=== PATIENT | female | born 1990 | race Caucasian/White ===

== ENCOUNTER 2023-09-23 18:03 | Observation (INO) | payer SELFPAY ==
[2023-09-23] VITALS (11 sets, daily range): BP systolic 152–210; BP diastolic 86–119; BMI 38.0; BMI 36.7
[2023-09-23 12:11] LABS: % Basophils 0.5 % (0-2); % Immature Granulocytes 0.3 % (0-0.5); % Lymphocytes 7.1 % (20.5-51.1); % Monocytes 2.3 % (1.7-9.3); % Neutrophils 89.8 % (42.2-75.2); Absolute Basophils 0.1 10^3/uL (0-0.2); Absolute Lymphocytes 0.9 10^3/uL (1.2-3.4); Absolute Monocytes 0.3 10^3/uL (0.1-0.6); Hematocrit 41.7 % (37.0-47.0); Hemoglobin 14.7 g/dL (12.0-16.0); Mean Corp Hgb Conc. 35.3 g/dL (33.0-37.0); Mean Corpuscular Hgb 30.8 pg (27.0-31.0); Mean Corpuscular Volume 87.4 fL (81.0-99.0); Mean Platelet Volume 10.6 fL (7.4-10.4); Nucleated Red Blood Cells % 0 %; Platelet Count 261 10^3/uL (130-400); Red Blood Cell Count 4.77 10^6/uL (4.20-5.40); Red Cell Dist. Width 12.7 % (11.5-14.5); White Blood Cell Count 13.3 10^3/uL (4.8-10.8)
[2023-09-23] MEDS: NSS 1000 IV ×2 (12:19→12:42)
[2023-09-23] MEDS: ZOFRAN 4 MG IV ×2 (12:19→22:21)
[2023-09-23 12:21] LABS: HCG, Serum Qualitative Screen Negative
--- NOTE | 2023-09-23 12:24 | EDRN ---
the pt was received from waiting room into ER Bed #11, the pt is vomiting and hyperventilating, this RN notified provider Rajani DIAZ, the pt is currently in sinus del in the 40-50's, PIV placed, Zofran and IVF Bolus hung and running, the pt
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
all over the pts shirt, the pt was compliant with putting gown on and was able to get into the gown herself, provider at the pts bedside speaking to the pt and assessing the pt, the pt stated to this RN and provider, 'I smoked week this morning,
this is a recurrent problem', VS WNL, will continue to monitor the pt closely
[2023-09-23 12:26] LABS: ALT (SGPT) 34 U/L (0-35); AST (SGOT) 31 U/L (14-36); Alkaline Phosphatase 67 U/L (38-126); Blood Urea Nitrogen 17 mg/dl (7-17); Calcium 9.9 mg/dl (8.4-10.2); Carbon Dioxide 21 mmol/L (22-30); Chloride 106 mmol/L (98-107); Estimated Creatinine Clearance > 125 ml/min; Glucose 164 mg/dl (70-99); Lipase 149 U/L (23-300); Potassium 4.3 mmol/L (3.5-5.1); Sodium 137 mmol/L (135-145); Total Bilirubin 1.2 mg/dl (0.2-1.3); Total Protein 8.2 g/dl (6.3-8.2); eGFR > 60.00
--- NOTE | 2023-09-23 12:36 | EDRN ---
unable to obtain EKG currently due to the pt not being able to sit still due to vomiting, provider Rajani DIAZ notified along with Dr. Drummond
[2023-09-23] MEDS: HALDOL 1 MG IV ×2 (12:38→16:22)
--- NOTE | 2023-09-23 12:44 | EDRN ---
Haldol administered, EKG will be performed, provider notified
--- NOTE | 2023-09-23 12:44 | ED.GENMED ---
History of Present Illness
<Sierra Morrow PA-C - Last Filed: 09/24/23 11:05>
General
Chief Complaint: Abdominal Symptoms
Source: patient
Exam Limitations: none
Time Seen by Provider: 09/23/23 12:01
Nursing documentation reviewed up to this point in time: agreed with
Travel History
Have you had any contact with someone who has COVID-19?: No
Do you have any symptoms of coronavirus? Fever > 100 degrees, chills, cough, shortness of breath, sore throat, loss of taste or smell, muscle aches, or headache?: No
History of Present Illness
History of Present Illness:
Patient is a 33-year-old female presenting to the emergency department with complaints of persistent nausea, vomiting for the past 3 days. She has a history of cyclical vomiting due to marijuana use. She smokes multiple times a day. She states
this episode feels exactly similar to prior episodes. She has had a few episodes of diarrhea and reports diffuse abdominal cramping.
She denies any fever, chills, urinary symptoms.
Patient states that she takes gabapentin and omeprazole daily.
Past History
<Sierra Morrow PA-C - Last Filed: 09/24/23 11:05>
Past History
ED Past Medical History: Psychiatric (Anxiety, marijuana dependence) and Other (Cannabis hyperemesis syndrome, obesity, migraines)
ED Past Surgical History: None
Social History
Tobacco: Smoker
Alcohol: Former
Drug: Marijuana
Personal: Single
Living: with family
Employment: Employed
Family History
Family History: Other
Phy Exam
<Sierra Morrow PA-C - Last Filed: 09/24/23 11:05>
Physical Exam
Physical Exam:
General: Appears uncomfortable, non-toxic; actively vomiting on initial evaluation
Vitals: Hypertensive, otherwise vital signs stable; afebrile
HEENT: Atraumatic, normocephalic; protecting airway, dry mucous membranes
Neck: appears supple, no meningeal signs
CV: Regular rate and rhythm, heart sounds normal no evidence of cyanosis
Resp: No evidence of respiratory distress
Abd: Soft, diffusely tender, no rebound or guarding, non-distended
Extremities: No deformities, no evidence of cyanosis or
Neuro: alert and oriented; grossly intact
Psych: Normal affect
Skin: Intact, no rashes
Course
<Sierra Morrow PA-C - Last Filed: 09/24/23 11:05>
Orders/Labs/Results
Orders:
Orders
09/23/23 Breakfast
Clear Liquid
At Your Request: Full Participation
Comment: advance as tolerted, pagtient may hav e crackers
09/23/23 12:00
Test Result ONCE
09/23/23 12:01
Complete Blood Count/With Diff Urgent
Comprehensive Metabolic Panel Urgent
HCG, Serum Qualitative Screen Urgent
Lipase Urgent
09/23/23 12:06
Ondansetron Injectable [Zofran] 4 mg .ROUTE .STK-MED ONE
09/23/23 12:13
0.9% Sodium Chloride 1000 ml [Nss] 1,000 ml IV BOLUS
Ondansetron Injectable [Zofran] 4 mg IV NOW STA
09/23/23 12:14
Electrocardiogram (*1) Urgent
Reason for Study: QTc Monitoring
EKG- Treatment ONCE
09/23/23 12:18
Add On- LAB Urgent
Tests Added?: urine drug screen
09/23/23 12:35
Haloperidol Lactate [Haldol] 1 mg IV NOW STA
09/23/23 12:42
0.9% Sodium Chloride 1000 ml [Nss] 1,000 ml IV BOLUS
09/23/23 13:46
Diphenhydramine [Benadryl] 25 mg IV NOW STA
Prochlorperazine [Compazine] 10 mg IV NOW STA
09/23/23 14:10
Capsaicin [Zostrix-Hp 0.075% Cream] See Dose Instructions TOPICAL NOW STA
09/23/23 16:14
Haloperidol Lactate [Haldol] 1 mg IV NOW STA
09/23/23 16:23
Electrocardiogram (*1) Urgent
Reason for Study: QTc Monitoring
EKG- Treatment ONCE
09/23/23 17:44
Admit/Transfer Patient As Directed
Co-Sign Provider:
Level of Care: Observation services
Assign to:: Medical/Surgical
Physician / Group: karson coats
Diagnosis: hyperemesis syndrome
09/23/23 17:45
Code Status As Directed
Resuscitation Status: Full Code
09/23/23 17:56
US Abdomen Complete/Upper Urgent
Comment:
Reason For Exam: abdominal pain
09/23/23 21:25
Acetaminophen [Tylenol] 650 mg PO Q4HPRN PRN
Enoxaparin Sodium [Lovenox] 40 mg SC QPM
HYDROmorphone [Dilaudid] 0.5 mg IV Q4HPRN PRN
HydrALAZINE [Apresoline] 5 mg IV Q6HPRN PRN
KCl 20 Meq/D5.45%Sodchl 1000ML [D5/0.45%NSS with KCL 20 MEQ] 20 meq in 1,000 ml IV 80 mls/hr
Ondansetron Injectable [Zofran] 4 mg IV Q6HPRN PRN
Pantoprazole [Protonix IV] 40 mg IV DAILY
09/23/23 21:25
Activity As Directed
Activity Level: As Tolerated
Vital Signs As Directed
Frequency: Per unit guidelines
DX Deep Vein Thrombosis Video Routine
09/23/23 22:00
Urinalysis Reflex To Culture Routine
Date Specimen was Collected: 09/23/23
Time Specimen was Collected: 17:50
Gabapentin [Neurontin] 600 mg PO TID
09/24/23 07:42
Basic Metabolic Panel IN AM
Complete Blood Count/No Diff IN AM
Abnormal Lab Results
09/23/23
12:01
WBC 13.3 H 10^3/uL
(4.8-10.8)
MPV 10.6 H fL
(7.4-10.4)
Absolute Neuts (auto) 12.0 H 10^3/uL
(1.4-6.5)
Absolute Lymphs (auto) 0.9 L 10^3/uL
(1.2-3.4)
Neutrophils % 89.8 H %
(42.2-75.2)
Lymphocytes % 7.1 L %
(20.5-51.1)
Carbon Dioxide 21 L mmol/L
(22-30)
Glucose 164 H mg/dl
(70-99)
09/23/23 12:01
09/23/23 12:01
Vital Signs
Temp: 98.4 F
Initial and Last Documented VS:
Initial Vital Signs
Pulse Resp BP Pulse Ox
73 20 181/105 98
09/23/23 11:20 09/23/23 11:20 09/23/23 11:20 09/23/23 11:20
Last Documented Vital Signs
Temp Pulse Resp BP Pulse Ox
97.4 F 53 18 133/73 97
09/24/23 07:30 09/24/23 07:30 09/24/23 07:30 09/24/23 07:30 09/24/23 08:50
<Lester Drummond, DO - Last Filed: 09/23/23 13:53>
Orders/Labs/Results
Orders:
Orders
09/23/23 Breakfast
Clear Liquid
At Your Request: Full Participation
Comment: advance as tolerted, pagtient may hav e crackers
09/23/23 12:00
Test Result ONCE
09/23/23 12:01
Complete Blood Count/With Diff Urgent
Comprehensive Metabolic Panel Urgent
HCG, Serum Qualitative Screen Urgent
Lipase Urgent
09/23/23 12:06
Ondansetron Injectable [Zofran] 4 mg .ROUTE .STK-MED ONE
09/23/23 12:13
0.9% Sodium Chloride 1000 ml [Nss] 1,000 ml IV BOLUS
Ondansetron Injectable [Zofran] 4 mg IV NOW STA
09/23/23 12:14
Electrocardiogram (*1) Urgent
Reason for Study: QTc Monitoring
EKG- Treatment ONCE
09/23/23 12:18
Add On- LAB Urgent
Tests Added?: urine drug screen
09/23/23 12:35
Haloperidol Lactate [Haldol] 1 mg IV NOW STA
09/23/23 12:42
0.9% Sodium Chloride 1000 ml [Nss] 1,000 ml IV BOLUS
09/23/23 13:46
Diphenhydramine [Benadryl] 25 mg IV NOW STA
Prochlorperazine [Compazine] 10 mg IV NOW STA
09/23/23 14:10
Capsaicin [Zostrix-Hp 0.075% Cream] See Dose Instructions TOPICAL NOW STA
09/23/23 16:14
Haloperidol Lactate [Haldol] 1 mg IV NOW STA
09/23/23 16:23
Electrocardiogram (*1) Urgent
Reason for Study: QTc Monitoring
EKG- Treatment ONCE
09/23/23 17:44
Admit/Transfer Patient As Directed
Co-Sign Provider:
Level of Care: Observation services
Assign to:: Medical/Surgical
Physician / Group: karson coats
Diagnosis: hyperemesis syndrome
09/23/23 17:45
Code Status As Directed
Resuscitation Status: Full Code
09/23/23 17:56
US Abdomen Complete/Upper Urgent
Comment:
Reason For Exam: abdominal pain
09/23/23 21:25
Acetaminophen [Tylenol] 650 mg PO Q4HPRN PRN
Enoxaparin Sodium [Lovenox] 40 mg SC QPM
HYDROmorphone [Dilaudid] 0.5 mg IV Q4HPRN PRN
HydrALAZINE [Apresoline] 5 mg IV Q6HPRN PRN
KCl 20 Meq/D5.45%Sodchl 1000ML [D5/0.45%NSS with KCL 20 MEQ] 20 meq in 1,000 ml IV 80 mls/hr
Ondansetron Injectable [Zofran] 4 mg IV Q6HPRN PRN
Pantoprazole [Protonix IV] 40 mg IV DAILY
09/23/23 21:25
Activity As Directed
Activity Level: As Tolerated
Vital Signs As Directed
Frequency: Per unit guidelines
DX Deep Vein Thrombosis Video Routine
09/23/23 22:00
Urinalysis Reflex To Culture Routine
Date Specimen was Collected: 09/23/23
Time Specimen was Collected: 17:50
Gabapentin [Neurontin] 600 mg PO TID
09/24/23 07:42
Basic Metabolic Panel IN AM
Complete Blood Count/No Diff IN AM
Abnormal Lab Results
09/23/23
12:01
WBC 13.3 H 10^3/uL
(4.8-10.8)
MPV 10.6 H fL
(7.4-10.4)
Absolute Neuts (auto) 12.0 H 10^3/uL
(1.4-6.5)
Absolute Lymphs (auto) 0.9 L 10^3/uL
(1.2-3.4)
Neutrophils % 89.8 H %
(42.2-75.2)
Lymphocytes % 7.1 L %
(20.5-51.1)
Carbon Dioxide 21 L mmol/L
(22-30)
Glucose 164 H mg/dl
(70-99)
09/23/23 12:01
09/23/23 12:01
Vital Signs
Initial and Last Documented VS:
Initial Vital Signs
Pulse Resp BP Pulse Ox
73 20 181/105 98
09/23/23 11:20 09/23/23 11:20 09/23/23 11:20 09/23/23 11:20
Last Documented Vital Signs
Temp Pulse Resp BP Pulse Ox
97.4 F 53 18 133/73 97
09/24/23 07:30 09/24/23 07:30 09/24/23 07:30 09/24/23 07:30 09/24/23 08:50
<Sierra Morrow PA-C - Last Filed: 09/24/23 11:05>
MDM/Problems Addressed
Differential Diagnosis Includes:
Cannabis hyperemesis syndrome, viral illness, gastritis, pancreatitis
MDM/Problems Addressed:
Patient is a 33 year female with history of cannabis hyperemesis syndrome presenting with persistent nausea, vomiting, crampy abdominal pain for the past three days very similar to prior episodes of cannabis hyperemesis syndrome. No fever, chest
pain, shortness of breath. She is hypertensive, otherwise vital signs stable. Appears very dehydrated. Abdomen is soft and diffusely tender without rebound or guarding - not surgical abdomen. Reviewed prior notes and will treat patient with agents
that she has responded well to in past. Starting IVF, 4 zofran, 1mg haldol. Will check basic labs, EKG for QT monitoring.
CBC shows mild leukocytosis to 13.3-likely stress reaction from repetitive vomiting. Otherwise no clinically significant abnormalities. CMP without any clinically significant abnormalities. QT normal on EKG.
Update: Patient with very minimal improvement. Will try Compazine/benadryl.
Update: Will trial patient on PO liquid intake. Patient continues to vomit despite multiple round of antiemetics. Will give 1mg haldol and admit to hospitalist for further management.
Discussed with hospitalist.
Chronic conditions affecting care:
Cannabis hyperemesis syndrome
Acute Exacerbation and/or Progression of Chronic Illness:
Cannabis hyperemesis syndrome
<Sierra Morrow PA-C - Last Filed: 09/24/23 11:05>
*Pulse Oximetry
Patient hypoxic: no
*EKG
Interpreted by ED Provider?: Yes
EKG Intrepretation Date: 09/23/23
Interpretation: abnormal
Comparison EKG: no changes
Heart Rate: 58
Rate: bradycardiac
Rhythm: sinus
[place]: normal axis
Interval: normal QT interval
Ischemia: no ischemia
*Manager Quality Compliance Interpretation
Rate: normal
Interpretation: normal
Heart Rate: 72
Rhythm: sinus
*Critical Care Note
Total Time (30-74mins, 75-104mins- exclusive of procedures): Not Applicable
Data Reviewed
Review of Other/Old Records Reveals: Labs and Records
Source: patient and previous hospital records
Further Testing Considered But Not Given:
Consider CT abdomen�symptoms consistent with prior episodes of cannabis hyperemesis syndrome; afebrile, no leukocytosis, abdomen without any focal tenderness
<Sierra Morrow PA-C - Last Filed: 09/24/23 11:05>
Patient Management
Discussion with other providers: Hospitalist
Escalation/DeEscalation of care consider admission/obs:
Patient given multiple rounds of antiemetic medication with little improvement. Repetitive vomiting while in emergency department. Will admit for further management of hyperemesis/intractable nausea.
ED Attending Note
<Sierra Morrow PA-C - Last Filed: 09/24/23 11:05>
-
Portions of this chart may have been created with voice recognition software.� Occasional wrong word or��sound alike� substitutions may have occurred due to the inherent limitations of voice recognition software.
<Lester Drummond DO - Last Filed: 09/23/23 13:53>
ED Attending Note
Patient seen and examined by attending physician: Yes
I performed a history and physical exam of patient and discussed management with resident, I reviewed resident's note and agree with documented findings and plan of care.: Yes
ED Attending Note:
I have reviewed and agree with history and treatment plan by Sierra Morrow. My exam reveals 31-year-old female appears nauseous and uncomfortable. Suspect cannabis hyperemesis. Nausea and vomiting improved after Haldol. Will give hydration,
capsaicin, Compazine and Benadryl.
Discharge Plan
Departure
Patient Disposition: Admit
Date of Disposition: 09/23/23
Time of Disposition: 17:21
Presentation/result/management discussed w/ accepting MD/DO: Hospitalist
Discharge Problem:
Hyperemesis, Intractable nausea and vomiting
Interventions
Interventions:
*Risk Screen - Suicide Last Done: 09/23/23 11:20
*General Assessment Last Done: 09/23/23 11:20
*Neglect/Abuse Screening Last Done: 09/23/23 11:20
ED- Fall Risk Assessment Last Done: 09/23/23 12:13
*ED COVID-19 Vaccine History Last Done: 09/23/23 12:13
*Nursing Disposition Last Done: 09/23/23 21:20
NU-Vxhkkz-Jncnrelvvs Assessment Last Done: 09/23/23 12:13
Discharge Date and Time
Discharge Date/Time: 09/23/23 21:21
--- NOTE | 2023-09-23 12:49 | EDRN ---
Dr. Drummond currently at the pts bedside
--- NOTE | 2023-09-23 12:56 | EDRN ---
the pt is not vomiting, the pt is resting in stretcher in the lowest position, side rails up x2, call march within reach, HOB elevated, no s/s of distress, VS WNL, will continue to monitor the pt closely
--- NOTE | 2023-09-23 13:16 | EDRN ---
provider notified of elevated blood pressure
[2023-09-23] MEDS: BENADRYL 25 MG IV (14:09)
[2023-09-23] MEDS: COMPAZINE 10 MG IV (14:09)
[2023-09-23] MEDS: BENADRYL IV (14:12)
--- NOTE | 2023-09-23 14:45 | EDRN ---
the pt is sleeping in stretcher in the lowest position, side rails up x2, call march within reach, HOB elevated, no s/s of distress, no c/o N/V, NSR in the 70's, blood pressure currently still elevated and this RN notified provider, will continue to
monitor the pt closely
--- NOTE | 2023-09-23 16:51 | EDRN ---
the pt refused to speak to registration twice, Prabha from registration went into the pts room and registered the pts, the pt refuses to speak to staff, the pt has not had c/o N/V/D, VS WNL, the pt keeps pulling off her monitor
--- NOTE | 2023-09-23 17:12 | EDRN ---
the pt has been sipping water per provider Rajani DIAZ request, the pt has no c/o N/V
--- NOTE | 2023-09-23 17:17 | EDRN ---
Dr. Hawk and Rajani Abel PA currently at the pts bedside speaking with the pt
--- NOTE | 2023-09-23 17:19 | EDRN ---
the pt has started to vomit again, provider notified
--- NOTE | 2023-09-23 17:28 | HPS.HSE ---
Addendum entered and electronically signed by Kev Mc MD 09/23/23 18:50:
Persistent N/V for 3 days
Pt seen independently and agree with ST[facility] ROLLER note
Lungs clear
CV reg
Abd soft, diffusely tender
Imp:cyclic vomiting syndrome
P:IVF
GB US
Original Note:
Family Physician
-
Family Physician: Hector Ladd
Chief Complaint
-
n/v/d
History of Present Illness
33 year old with PMH for anxiety presented to us with persistent nausea, vomiting for the past 3 days.� denied an blood in the diarrhea and vomit. stated diffuse abdominal pain.stated chills. denied fever. denied runny nose, congestion, cough.
denied chest pain, sob. denied dysuria or hematuria. smokes MJ daily. she used MJ today morning.
administered multiple anti emetics with no relief in her symptoms.
Medical History
Past Medical History
Past Medical History: Reports Other
Additional Past Medical History:
anxiety
Past Surgical History: Reports None
Social History
Tobacco: Smoker (0.5 pack a day. 1MJ daily)
Alcohol: None
Drug: None
Family History
Family History: Not pertinent
Allergies / Home Medications
Allergies reflects when Allergies were last updated in [facility].
Home Medications with original date entered in [facility]
Allergy/Medication List:
Allergies
Allergy/AdvReac Type Severity Reaction Status Date / Time
No Known Allergies Allergy Verified 09/23/23 11:25
Home Medications
omeprazole 40 mg capsule,delayed release 40 mg PO DAILY Gastrointestinal issue 14 days #14 caps 07/20/22
gabapentin 600 mg tablet 600 mg PO TID Pain 12/05/22
escitalopram oxalate 10 mg tablet 10 mg PO DAILY Mental Health/Anxiety 12/13/22
Review of Systems
-
Constitutional: Reports No Symptoms
EENT: Reports No Symptoms
Respiratory: Reports No Symptoms
Cardiac: Reports No Symptoms
Abdomen/GI: Reports Abdominal Pain, Nausea, Vomiting and Diarrhea
: Reports No Symptoms
Musculoskeletal: Reports No Symptoms
Skin: Reports No Symptoms
Neurological: Reports No Symptoms
Endocrine: Reports No Symptoms
Hematologic/Lymphatic: Reports No Symptoms
Psych: Reports No Symptoms
Physical Exam
Vital Signs
Vital Signs
Temp Pulse Resp BP Pulse Ox
98.4 F 64 20 179/119 98
09/23/23 16:29 09/23/23 14:00 09/23/23 14:00 09/23/23 14:00 09/23/23 14:00
Physical Exam
General: Well Developed, Well Nourished and No Apparent Distress
HEENT: NormoCephalic, Moist mucous membranes and Atraumatic
Respiratory: Clear
Cardiac: S1/S2 and Regular Rhythm; No Murmur or Rub
GI: Soft, Non Distended, Normal Bowel Sounds and Tender; No Organomegaly
Rectal: Deferred by Provider
Musculoskeletal: No Clubbing, No Cyanosis and No Edema
Skin: No Rash
Neuro: AO x 3 and Nonfocal/grossly intact
Psych: Calm
Laboratory Results
-
09/23/23 12:01
09/23/23 12:01
Laboratory Results
Total Bilirubin 1.2 mg/dl (0.2-1.3) 09/23/23 12:01
AST 31 U/L (14-36) 09/23/23 12:
ALT 34 U/L (0-35) 09/23/23 12:01
Alkaline Phosphatase 67 U/L (38-126) 09/23/23 12:01
Lipase 149 U/L (23-300) 09/23/23 12:
Data Reviewed
-
Lab Data: Labs Reviewed by me
Impression/Plan
-
#hyperemesis/intractable nausea likely from cannabis use
-Zofran prn for n/v
-Dilaudid prn for pain
-obtain US
-clear liquid diet advance as tolerated
-fluids continued for hydration
#leukocytosis likely stress reaction
-wbc 13.3
-obtain UA
-afebrile
-ctm
#hypertension emergency
-BP elevated in ER
-hydralazine prn
#Anxiety/depression/panic disorder
#Obesity-BMI 38.0
#GERD-continue PPI IV
#chronic pain
-gabapentin continued
DVT prophylaxis-Lovenox
Full code
--- NOTE | 2023-09-23 17:36 | EDRN ---
hospitalist currently at the pts bedside, this RN placed the pt back on the monitor
--- NOTE | 2023-09-23 21:38 | PTCARENOTE ---
Addendum entered by Eloisa Trivedi RN 09/23/23 21:40:
Pt refusing to answer admissions questions at this time. Will attempt again.
Original Note:
Received pt from ED via stretcher. Pt ambulated to bed without assist. Drowsy, AAOx3. Vomited ~50 cc yellow bile. Oriented to floor, call march within reach.
[2023-09-23] MEDS: D5/0.45%NSS with KCL 20 MEQ 1000 IV (22:07)
[2023-09-23] MEDS: APRESOLINE 5 MG IV (22:08)
[2023-09-23] MEDS: PROTONIX IV 40 MG IV (22:09)
[2023-09-23] MEDS: NSS (PRESERVATIVE FREE) 10 ML IV (22:09)
[2023-09-24 02:30] LABS: Urine Albumin Negative (Neg - Trace); Urine Bilirubin Negative (Negative); Urine Character Clear (Clear); Urine Color Yellow; Urine Glucose Negative (Negative); Urine Ketone 3+ (Negative); Urine Leukocyte Negative (Negative); Urine Nitrite Negative (Negative); Urine Occult Blood Negative (Negative); Urine Specific Gravity 1.015 (<1.030); Urine Urobilinogen Negative (Neg - 1+); Urine pH 6.5 (5.0-9.0)
[2023-09-24] MEDS: ZOFRAN 4 MG IV (04:20)
[2023-09-24 07:30] VITALS: BP 133/73
[2023-09-24 08:20] LABS: Hematocrit 37.7 % (37.0-47.0); Hemoglobin 13.1 g/dL (12.0-16.0); Mean Corp Hgb Conc. 34.7 g/dL (33.0-37.0); Mean Corpuscular Volume 89.3 fL (81.0-99.0); Mean Platelet Volume 11.5 fL (7.4-10.4); Platelet Count 212 10^3/uL (130-400); Red Blood Cell Count 4.22 10^6/uL (4.20-5.40); Red Cell Dist. Width 12.8 % (11.5-14.5); White Blood Cell Count 12.4 10^3/uL (4.8-10.8)
[2023-09-24 08:41] LABS: Blood Urea Nitrogen 13 mg/dl (7-17); Calcium 9.1 mg/dl (8.4-10.2); Carbon Dioxide 22 mmol/L (22-30); Chloride 102 mmol/L (98-107); Estimated Creatinine Clearance > 125 ml/min; Glucose 128 mg/dl (70-99); Potassium 3.4 mmol/L (3.5-5.1); Sodium 132 mmol/L (135-145); eGFR > 60.00
[2023-09-24] MEDS: PROTONIX IV 40 MG IV (08:51)
[2023-09-24] MEDS: NSS (PRESERVATIVE FREE) 10 ML IV (08:52)
--- NOTE | 2023-09-24 10:02 | W.PN.HOSP.TC ---
Addendum entered and electronically signed by Kev Mc MD 09/24/23 15:49:
Haldol helped ~40% with nausea, pt requests alternative drug to use for hyperemesis.
Will add prn Ativan, but not to use both at same time (nursing told to separate dsoing by at least 1 hr
Original Note:
Today's Communication/Plan
-
dc Zofran and start prn Haldol
Assessment / Plan
Assessment / Plan
#hyperemesis/intractable nausea likely from cannabis use
-Zofran was ordered prn for n/v, pt told nurse not working. UptoDate recommends Haldol 0.05-0.1 mg/kg, will order
consider GI consult
-Dilaudid prn for pain
-obtain US
-clear liquid diet advance as tolerated, pt asking for crackers, will allow
-fluids continued for hydration
#leukocytosis likely stress reaction
-wbc 13.3-->12.4
-UA +Ketones, otherwise unremarkable
-afebrile
-ctm
#hypertension emergency
-BP elevated in ER
-hydralazine prn
BP most recently 133/73
#Anxiety/depression/panic disorder
#Obesity-BMI 38.0
#GERD-continue PPI IV
#chronic pain
-gabapentin continued
DVT prophylaxis-Lovenox
Full code
Anticipated Discharge: 24 - 48 hours
Subjective/Interval History
-
Date of Service: September 24, 2023
Still with severe nausea. Does not think Zofran works well
Objective Data
-
Labs:
Laboratory Results
09/24/23
07:42
WBC 12.4 H
Hgb 13.1
Hct 37.7
Plt Count 212
Sodium 132 L
Potassium 3.4 L
Chloride 102
Carbon Dioxide 22
BUN 13
Creatinine 0.6
Glucose 128 H
Calcium 9.1
Vital Signs:
Vital Signs
Temp Pulse Resp BP Pulse Ox
97.4 F 53 18 133/73 97
09/24/23 07:30 09/24/23 07:30 09/24/23 07:30 09/24/23 07:30 09/24/23 08:50
I&O
09/23/23 09/24/23 09/25/23
06:59 06:59 06:59
Intake Total 780 / 780
Balance 780 / 780
Review of Systems
-
History Source: Patient and Coordinated Provider
Constitutional: Denies Fever
EENT: Reports No Symptoms Reported
Respiratory: Reports No Symptoms
Cardiac: Reports No Symptoms
Abdomen/GI: Reports Nausea and Vomiting
Musculoskeletal: Reports No Symptoms
Physical Exam
-
General: Well Developed, Well Nourished and Appears in Distress
Respiratory: Clear to Auscultation; Negative Wheezes, Rales or Rhonchi
Cardiac: S1/S2
GI: Soft, Normal Bowel Sounds and Tender
Musculoskeletal: No Clubbing, No Cyanosis and No Edema
[2023-09-24] MEDS: HALDOL 1 MG IV ×2 (11:31→20:18)
[2023-09-24] MEDS: FLUSH (NSS) 1 FLUSH IV ×2 (11:32→15:55)
[2023-09-24] MEDS: D5/0.45%NSS with KCL 20 MEQ 1000 IV (13:25)
--- NOTE | 2023-09-24 14:46 | CM ---
Patient seen, patient very nauseous and heaving while trying to talk to CM. Patient reports she wants to leave, CM relayed message to nurse, reports Hospitalist will be up. CM reviewed OBS form with patient, refused to sign, placed in patients
chart. CM will continue to follow for disharge planning needs.
Plan; patient wants to leave hospital.
[2023-09-24 15:36] VITALS: BP 134/76
--- NOTE | 2023-09-24 15:44 | PTCARENOTE ---
Pt AAO x3, STEVENS; ambulatory in room/to BR; taking frequent showers to help with nausea. Pt anxious; requesting to 'leave'; Dr. Mc up to see pt. VSS. On room air- pulse ox 95%, no SOB noted. Abd large, soft, pt with frequent nausea/retching;
occ vomiting small to mod amts clear/frothy secretions. Pt asking for Haldol/Ativan for nausea control. Taking clear liquids; requesting diet to be advanced. Voiding in BR without difficulty. IVF's D5 1/2NSS with 20 meq KCL at 80 ml/hr infusing
via Rt AC site without sx of infiltration. Resting in bed at present. Will continue to monitor.
[2023-09-24] MEDS: ATIVAN 0.5 MG IV (15:54)
[2023-09-24] MEDS: NSS (PRESERVATIVE FREE) 0.25 ML IV (15:55)
[2023-09-24 23:58] VITALS: BP 138/70
[2023-09-25] MEDS: ATIVAN 0.5 MG IV ×2 (00:22→05:20)
[2023-09-25] MEDS: HALDOL 1 MG IV ×2 (02:50→08:25)
[2023-09-25 07:00] VITALS: BP 140/73
[2023-09-25] MEDS: D5/0.45%NSS with KCL 20 MEQ 1000 IV (07:16)
[2023-09-25 08:24] LABS: % Basophils 0.2 % (0-2); % Eosinophils 0.5 % (0-6); % Immature Granulocytes 0.4 % (0-0.5); % Lymphocytes 12.6 % (20.5-51.1); % Monocytes 6.4 % (1.7-9.3); % Neutrophils 79.9 % (42.2-75.2); Absolute Eosinophils 0.1 10^3/uL (0-0.7); Absolute Immature Granulocytes 0.1 10^3/uL (0-0.05); Absolute Lymphocytes 1.6 10^3/uL (1.2-3.4); Absolute Monocytes 0.8 10^3/uL (0.1-0.6); Absolute Neutrophils 10.2 10^3/uL (1.4-6.5); Hematocrit 38.2 % (37.0-47.0); Hemoglobin 13.5 g/dL (12.0-16.0); Mean Corp Hgb Conc. 35.3 g/dL (33.0-37.0); Mean Corpuscular Hgb 30.8 pg (27.0-31.0); Mean Platelet Volume 11.3 fL (7.4-10.4); Nucleated Red Blood Cells % 0 %; Platelet Count 235 10^3/uL (130-400); Red Blood Cell Count 4.39 10^6/uL (4.20-5.40); Red Cell Dist. Width 12.6 % (11.5-14.5); White Blood Cell Count 12.7 10^3/uL (4.8-10.8)
[2023-09-25] MEDS: PROTONIX IV 40 MG IV (08:25)
[2023-09-25] MEDS: NSS (PRESERVATIVE FREE) 10 ML IV (08:25)
[2023-09-25 08:45] LABS: Blood Urea Nitrogen 10 mg/dl (7-17); Calcium 9.1 mg/dl (8.4-10.2); Carbon Dioxide 24 mmol/L (22-30); Chloride 100 mmol/L (98-107); Estimated Creatinine Clearance > 125 ml/min; Glucose 117 mg/dl (70-99); Potassium 3.7 mmol/L (3.5-5.1); Sodium 130 mmol/L (135-145); eGFR > 60.00
--- NOTE | 2023-09-25 08:53 | W.PN.HOSP.TC ---
Today's Communication/Plan
-
Discharge planning in progress.
Assessment / Plan
Assessment / Plan
Physical exam:
General: Well Developed, Well Nourished and No Apparent Distress
HEENT: Normocephalic, Atraumatic and Moist Mucous Membranes
Respiratory: Clear to Auscultation; Negative Wheezes, Rales or Rhonchi
Cardiac: Regular Rhythm and S1/S2
GI: Soft, Nontender and Nondistended
Musculoskeletal: No Clubbing, No Cyanosis and No Edema
Neuro: Awake, Alert and Oriented
Psych: Calm
A/P:
#hyperemesis/intractable nausea likely from cannabis use
-Zofran was ordered prn for n/v, pt told nurse not working. [employer] recommends Haldol 0.05-0.1 mg/kg, will order
-Dilaudid prn for pain
-obtain US reviewed.
-On regular diet and tolerating
-fluids can be discontinued for hydration
#Hyponatremia
Mild
#leukocytosis likely stress reaction
-wbc 13.3-->12.7
-UA +Ketones, otherwise unremarkable
-afebrile
-ctm
#hypertension emergency
-BP elevated in ER
-hydralazine prn
BP most recently 133/73
#Anxiety/depression/panic disorder
#Obesity-BMI 38.0
#GERD-continue PPI IV
#chronic pain
-gabapentin continued
DVT prophylaxis-Lovenox
Full code
Anticipated Discharge: Today
Subjective/Interval History
-
Date of Service: September 25, 2023
Patient feels better but more importantly she wants to go home and she feels that she will continue to get better at home.
Objective Data
-
Labs:
Laboratory Results
09/25/23
07:26
WBC Pending
Hgb Pending
Hct Pending
Plt Count Pending
Sodium 130 L
Potassium 3.7
Chloride 100
Carbon Dioxide 24
BUN 10
Creatinine 0.6
Glucose 117 H
Calcium 9.1
Vital Signs:
Vital Signs
Temp Pulse Resp BP Pulse Ox
97.7 F 59 18 140/73 96
09/25/23 07:00 09/25/23 07:00 09/25/23 07:00 09/25/23 07:00 09/25/23 07:00
I&O
09/24/23 09/25/23 09/26/23
06:59 06:59 06:59
Intake Total 780 / 780 2460 / 2460
Balance 780 / 780 2460 / 2460
--- NOTE | 2023-09-25 10:05 | W.DCSUMMARY ---
Discharge Summary
Discharge Data
Date of Admission: 09/23/23
Date of Discharge: 09/25/23
-
Pending Results: No
Hospital Course
Patient 33-year-old female who presented to the hospital with chronic nausea and vomiting for several days. She was kept in observation and she was given IV fluids, antiemetics, pain medications. Ultrasound of the abdomen unremarkable. Patient
was able to tolerate advancing diet. She had mild reactive leukocytosis. Blood cultures no growth. She was advised abstinence of cannabis. She was symptomatically much improved and she is eager to go home today. She will be discharged in stable
condition today.
Discharge Plan
-
Patient Disposition: Home (Routine Discharge)
Discharge Diagnosis/Procedures: Cannabinoid hyperemesis syndrome. Reactive leukocytosis. Elevated blood pressure but no hypertension. Anxiety, unspecified
Diet: Regular
Activity: As tolerated
Driving Restrictions: As prior to admission
Blood Work: Please PCP to order CBC, BMP within 1 week
Referrals:
Hector Ladd MD [Family Provider] - in less than 1 week
Prescriptions:
Continued
omeprazole 40 mg capsule,delayed release(DR/EC)
40 mg PO DAILY 14 Days Qty: 14 0RF
gabapentin 600 mg tablet
600 mg PO TID
Discharge Orders:
Discharge Patient (As Directed); Ordered 09/25/23
Ordered By: Dani Bradford
Discharge Date and Time
Discharge Date/Time: 09/25/23 10:51
--- NOTE | 2023-09-25 11:49 | CM ---
CM reviewed chart. Patient discharged today, home no needs.
Plan; home no needs.
== END 2023-09-25 10:51 | disposition home or self-care (01) ==
LOC: 4 EAST ACU 18:03
PROVIDERS: Nurse Practitioner Gerontology; Registered Nurse; ADMITTING PHYSICIAN Internal Medicine; ATTENDING PHYSICIAN Hospitalist; EMERGENCY PHYSICIAN Emergency Medicine; FAMILY PHYSICIAN Family Medicine
DX: R11.15 Cyclical vomiting syndrome unrelated to migraine (principal); R10.9 Unspecified abdominal pain; R11.2 Nausea with vomiting, unspecified; F12.20 Cannabis dependence, uncomplicated; F32.A Depression, unspecified; F41.9 Anxiety disorder, unspecified; Z68.38 Body mass index [BMI] 38.0-38.9, adult; E66.9 Obesity, unspecified; F17.210 Nicotine dependence, cigarettes, uncomplicated; D72.829 Elevated white blood cell count, unspecified; F41.0 Panic disorder [episodic paroxysmal anxiety]; K21.9 Gastro-esophageal reflux disease without esophagitis; G89.29 Other chronic pain; K76.0 Fatty (change of) liver, not elsewhere classified; E87.1 Hypo-osmolality and hyponatremia; R03.0 Elevated blood-pressure reading, without diagnosis of hypertension
CPT/HCPCS: 76700; 80048; 80053; 81003; 83690; 84703; 85025; 85027; 93005; 96361; 96374; 96375; 99285; 99406; G0378

== ENCOUNTER 2023-11-28 21:46 | Inpatient (IN) | payer OTHER, SELFPAY ==
[2023-11-28 15:32] VITALS: BP 176/112
[2023-11-28 17:08] VITALS: BP 152/77
--- NOTE | 2023-11-28 17:09 | ED.GENMED ---
History of Present Illness
<Juli Verdin PA-C - Last Filed: 11/28/23 20:45>
General
Chief Complaint: Abdominal Symptoms
Source: patient
Exam Limitations: none
Time Seen by Provider: 11/28/23 16:50
Nursing documentation reviewed up to this point in time: agreed with
Travel History
Have you had any contact with someone who has COVID-19?: No
Do you have any symptoms of coronavirus? Fever > 100 degrees, chills, cough, shortness of breath, sore throat, loss of taste or smell, muscle aches, or headache?: No
History of Present Illness
History of Present Illness:
pt is a 33 y/o F with h/o canabis cyclic vomiting syndrome
here with vomiting 'for a few days'
last smoked this morning
says she knows she needs to stop but doesn't
she is continuously spitting saliva into a emesis bag and is not able to offer much history
pt was last hospitalized here in 09/2023 for same
she denies that she was hospitalized otherwise
unable to answer questions
Past History
<Juli Verdin PA-C - Last Filed: 11/28/23 20:45>
Past History
ED Past Medical History: Psychiatric (Anxiety, marijuana dependence) and Other (Cannabis hyperemesis syndrome, obesity, migraines)
ED Past Surgical History: None
Social History
Tobacco: Smoker
Alcohol: Former
Drug: Marijuana
Personal: Single
Living: with family
Employment: Employed
Family History
Family History: Other
Review of Systems
<Juli Verdin PA-C - Last Filed: 11/28/23 20:45>
Review of Systems
Allergies reviewed?: Yes
All Other Systems: Not applicable
Phy Exam
<Juli Verdin PA-C - Last Filed: 11/28/23 20:45>
Physical Exam
Physical Exam:
GENERAL: Alert , moaning, bringing up saliva, spitting
EYE: pupils equal and reactive
NECK: Supple
ENT: o/p clr, mmm.
CARDIAC: Regular rate and rhythm .
LUNGS: Clear breath sounds bilaterally, no acute respiratory distress, no wheezes/rales/rhonchi
ABDOMEN: Soft, obese without focal tenderness, no r/g, no cvat, normal bowel sounds
NEUROLOGICAL: Alert and oriented, no focal neuro deficits
SKIN: warm, pale, dipahroetic
MUSCULOSKELETAL: No edema, well perfused. neg dre's sign
PSYCH: Normal and appropriate interaction.
Course
<Juli Verdin PA-C - Last Filed: 11/28/23 20:45>
Orders/Labs/Results
Orders:
Orders
11/28/23 16:51
Electrocardiogram (*1) Urgent
Reason for Study: QTc Monitoring
EKG- Treatment ONCE
11/28/23 17:05
Haloperidol Lactate [Haldol] 1 mg IV NOW STA
Test Result ONCE
11/28/23 17:06
0.9% Sodium Chloride 1000 ml [Nss] 1,000 ml IV BOLUS
11/28/23 17:35
Complete Blood Count/With Diff Urgent
Comprehensive Metabolic Panel Urgent
HCG, Serum Qualitative Screen Urgent
Lipase Urgent
Magnesium Urgent
11/28/23 18:30
Diphenhydramine [Benadryl] 50 mg .ROUTE .STK-MED ONE
Metoclopramide [Reglan] 10 mg .ROUTE .STK-MED ONE
11/28/23 18:48
Metoclopramide [Reglan] 10 mg IV NOW STA
11/28/23 18:49
Diphenhydramine [Benadryl] 50 mg IV NOW STA
11/28/23 20:06
Pantoprazole [Protonix IV] 40 mg IV NOW STA
11/28/23 20:40
Ketorolac [Toradol] 30 mg IV NOW STA
Abnormal Lab Results
11/28/23
17:35
WBC 22.6 H 10^3/uL
(4.8-10.8)
MPV 11.5 H fL
(7.4-10.4)
Abs Immat Gran (auto) 0.1 H 10^3/uL
(0-0.05)
Absolute Neuts (auto) 20.8 H 10^3/uL
(1.4-6.5)
Absolute Lymphs (auto) 1.0 L 10^3/uL
(1.2-3.4)
Neutrophils % 92.2 H %
(42.2-75.2)
Lymphocytes % 4.5 L %
(20.5-51.1)
BUN 19 H mg/dl
(7-17)
Glucose 155 H mg/dl
(70-99)
Calcium 10.7 H mg/dl
(8.4-10.2)
Total Protein 8.4 H g/dl
(6.3-8.2)
Albumin 5.1 H g/dl
(3.5-5.0)
11/28/23 17:35
11/28/23 17:35
Vital Signs
Initial and Last Documented VS:
Initial Vital Signs
Temp Pulse Resp BP Pulse Ox
97.3 F 76 20 176/112 95
11/28/23 15:32 11/28/23 15:32 11/28/23 15:32 11/28/23 15:32 11/28/23 15:32
Last Documented Vital Signs
Temp Pulse Resp BP Pulse Ox
97.3 F 63 13 152/77 98
11/28/23 15:32 11/28/23 20:15 11/28/23 20:15 11/28/23 17:08 11/28/23 20:15
<Kavon Grace, DO - Last Filed: 11/28/23 20:38>
Orders/Labs/Results
Orders:
Orders
11/28/23 16:51
Electrocardiogram (*1) Urgent
Reason for Study: QTc Monitoring
EKG- Treatment ONCE
11/28/23 17:05
Haloperidol Lactate [Haldol] 1 mg IV NOW STA
Test Result ONCE
11/28/23 17:06
0.9% Sodium Chloride 1000 ml [Nss] 1,000 ml IV BOLUS
11/28/23 17:35
Complete Blood Count/With Diff Urgent
Comprehensive Metabolic Panel Urgent
HCG, Serum Qualitative Screen Urgent
Lipase Urgent
Magnesium Urgent
11/28/23 18:30
Diphenhydramine [Benadryl] 50 mg .ROUTE .STK-MED ONE
Metoclopramide [Reglan] 10 mg .ROUTE .STK-MED ONE
11/28/23 18:48
Metoclopramide [Reglan] 10 mg IV NOW STA
11/28/23 18:49
Diphenhydramine [Benadryl] 50 mg IV NOW STA
11/28/23 20:06
Pantoprazole [Protonix IV] 40 mg IV NOW STA
11/28/23 20:40
Ketorolac [Toradol] 30 mg IV NOW STA
Abnormal Lab Results
11/28/23
17:35
WBC 22.6 H 10^3/uL
(4.8-10.8)
MPV 11.5 H fL
(7.4-10.4)
Abs Immat Gran (auto) 0.1 H 10^3/uL
(0-0.05)
Absolute Neuts (auto) 20.8 H 10^3/uL
(1.4-6.5)
Absolute Lymphs (auto) 1.0 L 10^3/uL
(1.2-3.4)
Neutrophils % 92.2 H %
(42.2-75.2)
Lymphocytes % 4.5 L %
(20.5-51.1)
BUN 19 H mg/dl
(7-17)
Glucose 155 H mg/dl
(70-99)
Calcium 10.7 H mg/dl
(8.4-10.2)
Total Protein 8.4 H g/dl
(6.3-8.2)
Albumin 5.1 H g/dl
(3.5-5.0)
11/28/23 17:35
11/28/23 17:35
Vital Signs
Initial and Last Documented VS:
Initial Vital Signs
Temp Pulse Resp BP Pulse Ox
97.3 F 76 20 176/112 95
11/28/23 15:32 11/28/23 15:32 11/28/23 15:32 11/28/23 15:32 11/28/23 15:32
Last Documented Vital Signs
Temp Pulse Resp BP Pulse Ox
97.3 F 63 13 152/77 98
11/28/23 15:32 11/28/23 20:15 11/28/23 20:15 11/28/23 17:08 11/28/23 20:15
<Juli Verdin PA-C - Last Filed: 11/28/23 20:45>
MDM/Problems Addressed
Differential Diagnosis Includes:
hyperemesis, dehydration
MDM/Problems Addressed:
33 y/o F with h/o cannabis hyperemsis
has been here previosuly
n/v started 2 days ago
continues to smoke
having spasms of pain in her abdomen
bringing up mostly saliva
nontender abdomen
appreciate leukocytosis which is significant but probably acute phase reactant to vomiting, which sh ehas had perivously
given haldol then reglan/benadryl and still vomiting
requesting ativan which was not given,
she also is requesting paain medication, will give protonix and toradol
seen by ed attending, recommends admission given her intractable vomiting
<Juli Verdin PA-C - Last Filed: 11/28/23 20:45>
*Critical Care Note
Total Time (30-74mins, 75-104mins- exclusive of procedures): Not Applicable
ED Attending Note
<Juli eVrdin PA-C - Last Filed: 11/28/23 20:45>
-
Portions of this chart may have been created with voice recognition software.� Occasional wrong word or��sound alike� substitutions may have occurred due to the inherent limitations of voice recognition software.
<Kavon Grace DO - Last Filed: 11/28/23 20:38>
ED Attending Note
Patient seen and examined by attending physician: Yes
I performed the substantive portion of visit, reviewed & personally made and approve the management plan that is documented in note by myself or OMAIRA.: Yes
ED Attending Note:
I have seen and evaluated the patient with a [id number] encounter. I have spoken to the advance practicer provider and involved in the medical history, the physical exam, medical decision making.
Evaluation and management service: agree unless noted differently below.
Results interpretation: agree unless noted differently below.
Focused HPI: 33-year-old female presenting with nausea and vomiting. Patient has a known history of cannabis hyperemesis. She admits to smoking marijuana earlier today. She complains of generalized abdominal pain
Physical exam: Uncomfortable, dry mucous membranes, generalized abdominal tenderness without
Medical Decision Making: Patient unable to tolerate p.o. Will continue IV fluids. Given the elevated leukocytosis with inability to tolerate p.o., will admit. I did offer discharge but patient states she feels too uncomfortable going home. Given
the relatively benign abdomen with multiple negative imaging done in the past, will avoid further imaging
Discharge Plan
Departure
Patient Disposition: Admit
Date of Disposition: 11/28/23
Time of Disposition: 20:39
Admit to: Med/Surg
Presentation/result/management discussed w/ accepting MD/DO: Hospitalist
Condition: Fair
Covid-19: Not Applicable
Discharge Problem:
Cyclical vomiting, intractable
Prescriptions:
No Action
omeprazole 40 mg capsule,delayed release(DR/EC)
40 mg PO DAILY 14 Days Qty: 14 0RF
gabapentin 600 mg tablet
600 mg PO TID
Referrals:
UNKNOWN - PT DOES,NOT KNOW [Family Provider] -
Interventions
Interventions:
*Risk Screen - Suicide Last Done: 11/28/23 18:35
*General Assessment Last Done: 11/28/23 18:35
*Neglect/Abuse Screening Last Done: 11/28/23 18:35
ED- Fall Risk Assessment Last Done: 11/28/23 18:35
ZF-[id number]-Rhxedllgds Assessment Last Done: 11/28/23 18:35
Discharge Date and Time
Print Language: SLOVAK
[2023-11-28] MEDS: HALDOL 1 MG IV (17:32)
[2023-11-28] MEDS: NSS 1000 IV (17:33)
[2023-11-28 17:50] LABS: % Basophils 0.4 % (0-2); % Immature Granulocytes 0.4 % (0-0.5); % Lymphocytes 4.5 % (20.5-51.1); % Monocytes 2.5 % (1.7-9.3); % Neutrophils 92.2 % (42.2-75.2); Absolute Basophils 0.1 10^3/uL (0-0.2); Absolute Immature Granulocytes 0.1 10^3/uL (0-0.05); Absolute Monocytes 0.6 10^3/uL (0.1-0.6); Absolute Neutrophils 20.8 10^3/uL (1.4-6.5); Hematocrit 44.4 % (37.0-47.0); Hemoglobin 15.2 g/dL (12.0-16.0); Mean Corp Hgb Conc. 34.2 g/dL (33.0-37.0); Mean Corpuscular Hgb 30.8 pg (27.0-31.0); Mean Corpuscular Volume 90.1 fL (81.0-99.0); Mean Platelet Volume 11.5 fL (7.4-10.4); Nucleated Red Blood Cells % 0 %; Platelet Count 283 10^3/uL (130-400); Red Blood Cell Count 4.93 10^6/uL (4.20-5.40); White Blood Cell Count 22.6 10^3/uL (4.8-10.8)
[2023-11-28 17:55] LABS: HCG, Serum Qualitative Screen Negative
[2023-11-28 17:58] LABS: ALT (SGPT) 26 U/L (0-35); AST (SGOT) 23 U/L (14-36); Albumin 5.1 g/dl (3.5-5.0); Alkaline Phosphatase 78 U/L (38-126); Blood Urea Nitrogen 19 mg/dl (7-17); Calcium 10.7 mg/dl (8.4-10.2); Carbon Dioxide 22 mmol/L (22-30); Chloride 106 mmol/L (98-107); Glucose 155 mg/dl (70-99); Lipase 145 U/L (23-300); Magnesium 1.9 mg/dl (1.6-2.3); Potassium 4.3 mmol/L (3.5-5.1); Sodium 141 mmol/L (135-145); Total Bilirubin 0.7 mg/dl (0.2-1.3); Total Protein 8.4 g/dl (6.3-8.2); eGFR > 60.00
[2023-11-28] MEDS: REGLAN 10 MG IV (18:49)
[2023-11-28] MEDS: BENADRYL 50 MG IV (18:49)
[2023-11-28] MEDS: PROTONIX IV 40 MG IV (20:32)
[2023-11-28] MEDS: TORADOL 30 MG IV (20:51)
--- NOTE | 2023-11-28 21:32 | HPS.HSE ---
Addendum entered and electronically signed by Rolando Ybarra DO 11/28/23 22:32:
Patient seen and examined independently. Agree with findings and plan as set forth by Diana Sahu PA-C.
Patient is a 33y F with PMH significant for anxiety / depression who presents to ED complaining of N/V x 3 days. Patient admits to daily marijuana use. She has prior history / diagnosis of cannabinoid hyperemesis and has been counseled to avoid
marijuana. Patient has had continud episodes of retching here in the ED despite multiple interventions.
Ass;
Cannabinoid Hyperemesis Syndrome
Leukocytosis - Likely Stress Response
Anxiety / Depression
GERD
Chronic Pain Syndrome
Plan:
Admit for further evaluation and treatment.
Supportive care with IVFs, haloperidol, PRN BZDs, antiemetics, etc.
Avoid narcotic medications.
Follow for improvement in symptoms.
Would recommend outpatient follow-up with Psych for treatment of underlying anxiety disorder.
Again encouraged to stop smoking marijuana to prevent future episodes.
Original Note:
Family Physician
-
Family Physician: NOT KNOW UNKNOWN - PT DOES
Chief Complaint
-
Vomiting
History of Present Illness
This is a 33 year old female patient with a past medical history of anxiety, and cannabis hyperemesis syndrome who presents to the ED for vomiting x 3 days. She states she ran out of Zofran and denies any provocative factors. She also has associated
diffuse abdominal spasms x3 days that have worsened today. She was admitted for similar episode in 09/2023 and was advised to stop smoking marijuana, but she continue to smoke daily. She last smoked marijuana this morning. She also has associated
chills, but denies fever.
Medical History
Past Medical History
Past Medical History: Reports Other
Additional Past Medical History:
Anxiety/Depression/Panic Disorder
GERD
Chronic Pain
Past Surgical History: Reports None
Social History
Tobacco: Smoker
Alcohol: None
Drug: Marijuana
Family History
Family History: Not pertinent
Allergies / Home Medications
Allergies reflects when Allergies were last updated in [facility].
Home Medications with original date entered in [facility]
Allergy/Medication List:
Allergies
Allergy/AdvReac Type Severity Reaction Status Date / Time
No Known Allergies Allergy Verified 09/23/23 11:25
Home Medications
omeprazole 40 mg capsule,delayed release 40 mg PO DAILY Gastrointestinal issue 14 days #14 caps 07/20/22
gabapentin 600 mg tablet 600 mg PO TID Pain 12/05/22
escitalopram oxalate 10 mg tablet 10 mg PO DAILY Mental Health/Anxiety 12/13/22
Review of Systems
-
A 12 point ROS was completed and negative except as noted: Yes
Constitutional: Reports Chills; Denies Fever
Respiratory: Denies Cough or Trouble Breathing
Cardiac: Denies Chest Pain or Palpitations
Abdomen/GI: Reports Abdominal Pain, Nausea and Vomiting; Denies Diarrhea
Physical Exam
Vital Signs
Vital Signs
Temp Pulse Resp BP Pulse Ox
97.3 F 63 13 152/77 98
11/28/23 15:32 11/28/23 20:15 11/28/23 20:15 11/28/23 17:08 11/28/23 20:15
Physical Exam
General: Well Developed, Well Nourished and Other (Frequent Dry Heaves)
HEENT: NormoCephalic, Anicteric and Atraumatic
Respiratory: Clear and Non Labored Respirations
Cardiac: S1/S2 and Regular Rhythm
GI: Soft and Non Tender
Musculoskeletal: No Clubbing, No Cyanosis and No Edema
Skin: Warm and Dry
Neuro: Awake, Alert, Oriented and Nonfocal/grossly intact
Laboratory Results
-
11/28/23 17:35
11/28/23 17:35
Laboratory Results
Total Bilirubin 0.7 mg/dl (0.2-1.3) 11/28/23 17:35
AST 23 U/L (14-36) 11/28/23 17:35
ALT 26 U/L (0-35) 11/28/23 17:35
Alkaline Phosphatase 78 U/L (38-126) 11/28/23 17:35
Lipase 145 U/L (23-300) 11/28/23 17:35
Data Reviewed
-
Lab Data: Labs Reviewed by me
Old Records: Reviewed
Impression/Plan
-
Cannabis Hyperemesis Syndrome
-Continue symptom control with anti-emetics
-Continue NPO with sips/chips
-Reviewed with patient importance of avoiding marijuana in the future
Leukocytosis, likely stress reaction
-Continue to monitor
Anxiety/Depression/Panic Disorder
-Patient would benefit from psych evaluation as outpatient to ensure better symptom control in hopes of avoiding marijuana in the future
GERD
-Continue Protonix
Chronic Pain
-Continue gabapentin
DVT proph: Lovenox
Code Status: Full Code
[2023-11-28 23:43] VITALS: BP 180/76; BMI 36.7
[2023-11-29] VITALS (7 sets, daily range): BP systolic 111–190; BP diastolic 56–111
[2023-11-29] MEDS: NSS 1000 IV ×2 (00:02→12:19)
[2023-11-29] MEDS: ZOFRAN 4 MG IV ×4 (00:10→18:21)
[2023-11-29] MEDS: NEURONTIN PO (00:52)
--- NOTE | 2023-11-29 01:32 | PTCARENOTE ---
Receive pt from ER. Pt alert oriented X3. Pt assisted X1 to her bed. Pt oriented to the room, call march within reach. Pt forcing herself to vomit, but only white saliva. Pt states that she feels she has to vomit, but it 'won't come out'. Pt given
zofran, IVFs infusing as per order. Pt on NSR with S. Arrhythmia on telemonitor. BP gowouuzs=033/76, HR=75, T=97.6, SpO2=95% on RA. Will recheck BP when the pt is rested, and the nausea improves. Pt asked to take shower stating that the shower
'helps'. Request an order for shower from ALEX (Yared Preston). Order given for shower with supervision. Advise the pt to hold on the shower until her conditions improve. Pt agreeable. Will continue to monitor the pt.
[2023-11-29] MEDS: HALDOL 1 MG IV ×4 (02:19→21:58)
--- NOTE | 2023-11-29 06:25 | PTCARENOTE ---
Pt' BP continues to be elevated. Pt constantly moving, trying to vomit, which makes it difficult to get an accurate reading. Discuss this BP issue with the TANK HOUSE OPERATOR HELPER (Yared Preston), no orders given. Will continue to monitor the pt.
[2023-11-29 07:08] LABS: Hematocrit 36.7 % (37.0-47.0); Hemoglobin 12.6 g/dL (12.0-16.0); Mean Corp Hgb Conc. 34.3 g/dL (33.0-37.0); Mean Corpuscular Hgb 30.9 pg (27.0-31.0); Mean Platelet Volume 11.5 fL (7.4-10.4); Platelet Count 204 10^3/uL (130-400); Red Blood Cell Count 4.08 10^6/uL (4.20-5.40); Red Cell Dist. Width 12.2 % (11.5-14.5); White Blood Cell Count 14.8 10^3/uL (4.8-10.8)
[2023-11-29 07:32] LABS: Blood Urea Nitrogen 19 mg/dl (7-17); Calcium 9.6 mg/dl (8.4-10.2); Carbon Dioxide 20 mmol/L (22-30); Chloride 107 mmol/L (98-107); Estimated Creatinine Clearance > 125 ml/min; Glucose 130 mg/dl (70-99); Potassium 3.6 mmol/L (3.5-5.1); Sodium 139 mmol/L (135-145); eGFR > 60.00
[2023-11-29] MEDS: PROTONIX IV 40 MG IV (08:05)
[2023-11-29] MEDS: NSS (PRESERVATIVE FREE) 10 ML IV (08:05)
[2023-11-29] MEDS: NICODERM TRANSDERMAL 14 MG TRANSDERM (08:06)
--- NOTE | 2023-11-29 09:27 | W.PN.HOSP.TC ---
Today's Communication/Plan
-
As per [employer] carp[employer] Any overnight
Patient is a 33y F with PMH significant for anxiety / depression who presents to ED complaining of N/V x 3 days. Patient admits to daily marijuana use. She has prior history / diagnosis of cannabinoid hyperemesis and has been counseled to avoid
marijuana. Patient has had continud episodes of retching here in the ED despite multiple interventions.
Ass;
Cannabinoid Hyperemesis Syndrome
Leukocytosis - Likely Stress Response/improving
Anxiety / Depression
GERD
Chronic Pain Syndrome
Plan:
Admit for further evaluation and treatment.
Supportive care with IVFs, haloperidol, PRN BZDs, antiemetics, etc.
Avoid narcotic medications.
Follow for improvement in symptoms.
Would recommend outpatient follow-up with Psych for treatment of underlying anxiety disorder.
Again encouraged to stop smoking marijuana to prevent future episodes.
Assessment / Plan
Assessment / Plan
Anticipated Discharge: 24 - 48 hours
Subjective/Interval History
-
Date of Service: November 29, 2023
Complains of 8 out of 10 abdominal pain which she is awake but appears comfortable when she is sedated after Haldol. Continues to have dry heaves. Asking for morphine.
Objective Data
-
Labs:
Laboratory Results
11/29/23
06:50
WBC 14.8 H
Hgb 12.6
Hct 36.7 L
Plt Count 204 D
Sodium 139
Potassium 3.6
Chloride 107
Carbon Dioxide 20 L
BUN 19 H
Creatinine 0.6
Glucose 130 H
Calcium 9.6
Vital Signs:
Vital Signs
Temp Pulse Resp BP Pulse Ox
97.4 F 54 18 162/80 100
11/29/23 07:04 11/29/23 09:08 11/29/23 07:04 11/29/23 09:08 11/29/23 07:04
Review of Systems
-
Respiratory: Reports No Symptoms
Abdomen/GI: Reports Abdominal Pain, Nausea and Vomiting
Musculoskeletal: Reports Muscle Pain
Psych: Reports Depressed and Anxious
Physical Exam
-
General: Well Developed
Cardiac: Regular Rhythm
GI: Soft, Nondistended, Normal Bowel Sounds and Tender
Skin: Warm
Neuro: Awake
Psych: Anxious
Data Reviewed
-
Total Time Spent with Patient (in minutes): 56
Labs: Labs Reviewed by me (leukocytosis trending down from 22 to 014)
[2023-11-29] MEDS: NEURONTIN 600 MG PO ×3 (09:46→21:59)
[2023-11-29] MEDS: TYLENOL 650 MG PO ×3 (09:46→20:27)
--- NOTE | 2023-11-29 15:45 | CM ---
Attempted IA
Pt sleeping soundly and not easily arousable
[2023-11-29] MEDS: LOVENOX 40 MG SC (17:10)
--- NOTE | 2023-11-29 18:25 | PTCARENOTE ---
Pt reports feeling some improvement with retching and dry heaving. Pt has not produced any emesis today besides clear mucus. Episodes of dry heaving/retching throughout day. PRN Haldol/Zofran and PRN Tylenol has provided pt with tolerable relief
from retching/dry heaving and abdominal pain that pt was able to rest. Kept pt on sips of clears and ice chips with continued retching and dry heaving.
[2023-11-30] VITALS (7 sets, daily range): BP systolic 106–174; BP diastolic 52–91
[2023-11-30] MEDS: ZOFRAN 4 MG IV ×3 (00:36→22:44)
[2023-11-30] MEDS: HALDOL 1 MG IV ×3 (03:17→19:57)
[2023-11-30] MEDS: NSS 1000 IV ×2 (03:20→14:57)
[2023-11-30 08:01] LABS: Blood Urea Nitrogen 14 mg/dl (7-17); Calcium 8.9 mg/dl (8.4-10.2); Carbon Dioxide 19 mmol/L (22-30); Chloride 105 mmol/L (98-107); Estimated Creatinine Clearance > 125 ml/min; Glucose 106 mg/dl (70-99); Potassium 3.9 mmol/L (3.5-5.1); Sodium 134 mmol/L (135-145); eGFR > 60.00
[2023-11-30] MEDS: NICODERM TRANSDERMAL 14 MG TRANSDERM (08:06)
[2023-11-30] MEDS: PROTONIX IV 40 MG IV (08:06)
[2023-11-30] MEDS: NSS (PRESERVATIVE FREE) 10 ML IV (08:06)
--- NOTE | 2023-11-30 09:00 | W.PN.HOSP.TC ---
Today's Communication/Plan
-
Continue Haldol Zofran
Try some dosing with Reglan also
Allow warm showers
Continue IV fluid
Assessment / Plan
Assessment / Plan
Patient is a 33y F with PMH significant for anxiety / depression who presents to ED complaining of N/V x 3 days. Patient admits to daily marijuana use. She has prior history / diagnosis of cannabinoid hyperemesis and has been counseled to avoid
marijuana. Patient has had continud episodes of retching here in the ED despite multiple interventions.
Ass;
Cannabinoid Hyperemesis Syndrome
Leukocytosis - Likely Stress Response/improving
Anxiety / Depression
GERD
Chronic Pain Syndrome
Plan:
Admit for further evaluation and treatment.
Supportive care with IVFs, haloperidol, PRN BZDs, antiemetics, etc.
Avoid narcotic medications.
Follow for improvement in symptoms.
Would recommend outpatient follow-up with Psych for treatment of underlying anxiety disorder.
Again encouraged to stop smoking marijuana to prevent future episodes.
Will allow him to take warm showers to see if that helps
Anticipated Discharge: Within 24 hours
Subjective/Interval History
-
Date of Service: November 30, 2023
Although was noted to have some improvement in her nausea and vomiting and abdominal pain yesterday with combination of Zofran and Haldol seems to be more nauseous this morning with continued abdominal pain
Objective Data
-
Labs:
Laboratory Results
11/30/23 11/30/23
07:11 08:00
WBC Cancelled Pending
Hgb Cancelled Pending
Hct Cancelled Pending
Plt Count Cancelled Pending
Sodium 134 L
Potassium 3.9
Chloride 105
Carbon Dioxide 19 L
BUN 14
Creatinine 0.6
Glucose 106 H
Calcium 8.9
Vital Signs:
Vital Signs
Temp Pulse Resp BP Pulse Ox
97.4 F 54 18 173/82 96
11/30/23 07:30 11/30/23 07:30 11/30/23 07:30 11/30/23 07:30 11/30/23 07:30
I&O
11/29/23 11/30/23 12/01/23
06:59 06:59 06:59
Intake Total 2239
Balance 2239
Review of Systems
-
Respiratory: Reports No Symptoms
Cardiac: Reports No Symptoms
Abdomen/GI: Reports Abdominal Pain, Nausea and Vomiting
Psych: Reports Depressed
Physical Exam
-
General: Well Developed
HEENT: Normocephalic
Respiratory: Clear to Auscultation
Cardiac: Regular Rhythm
GI: Soft and Tender
Neuro: Awake, Alert and Oriented
Psych: Calm
Data Reviewed
-
Total Time Spent with Patient (in minutes): 45
Labs: Labs Reviewed by me
--- NOTE | 2023-11-30 09:53 | PTCARENOTE ---
0920 Received pt this am AAOx3. Pt c/o nausea with dry heaves. IVF infusing without difficulty. Offered no other complaints. Made patient comfortable. Report called an pt transferred [id number].
[2023-11-30] MEDS: TYLENOL 650 MG PO (11:22)
--- NOTE | 2023-11-30 11:41 | CM ---
CM met with pt bedside
Pt resides with her sister in a 3rd floor apartment- no elevator
3 full flights to enter
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
Pt is uninsured
PCP- Hector Ladd
Rx- [facility]
Pt requesting assisting with stopping marijuana use
Referral made to [facility]- he will visit/call tomorrow as pt not feeling well today
Pt hx of inpt at [facility] and will need [facility] funding
Of note, pt may not want inpt tx, may be interested in PHP or outpt services
VM left for [facility] for MA kat
Discharge Disposition- D/A inpt vs PHP vs outpt
[2023-11-30] MEDS: NEURONTIN PO (12:32)
[2023-11-30] MEDS: NSS IV (12:33)
[2023-11-30] MEDS: ATIVAN 0.5 MG IV (12:34)
[2023-11-30 12:56] LABS: Hematocrit 37.8 % (37.0-47.0); Hemoglobin 13.5 g/dL (12.0-16.0); Mean Corp Hgb Conc. 35.7 g/dL (33.0-37.0); Mean Corpuscular Hgb 31.3 pg (27.0-31.0); Mean Corpuscular Volume 87.5 fL (81.0-99.0); Mean Platelet Volume 11.5 fL (7.4-10.4); Platelet Count 198 10^3/uL (130-400); Red Blood Cell Count 4.32 10^6/uL (4.20-5.40); Red Cell Dist. Width 11.9 % (11.5-14.5); White Blood Cell Count 13.9 10^3/uL (4.8-10.8)
[2023-11-30] MEDS: NEURONTIN 600 MG PO ×2 (14:57→22:43)
[2023-11-30] MEDS: LOVENOX SC (17:29)
[2023-12-01] MEDS: TYLENOL 650 MG PO (02:07)
[2023-12-01 03:35] VITALS: BP 152/80
[2023-12-01] MEDS: NSS 1000 IV (04:18)
[2023-12-01] MEDS: ZOFRAN 4 MG IV (05:42)
[2023-12-01 07:00] VITALS: BP 168/96
[2023-12-01 07:52] LABS: Blood Urea Nitrogen 13 mg/dl (7-17); Calcium 9.2 mg/dl (8.4-10.2); Carbon Dioxide 21 mmol/L (22-30); Chloride 104 mmol/L (98-107); Estimated Creatinine Clearance > 125 ml/min; Glucose 98 mg/dl (70-99); Potassium 3.9 mmol/L (3.5-5.1); Sodium 134 mmol/L (135-145); eGFR > 60.00
[2023-12-01 08:34] VITALS: BMI 36.7
[2023-12-01] MEDS: NEURONTIN 600 MG PO (08:38)
[2023-12-01] MEDS: NICODERM TRANSDERMAL 14 MG TRANSDERM (08:38)
[2023-12-01] MEDS: HALDOL 1 MG IV (08:39)
[2023-12-01] MEDS: PROTONIX IV 40 MG IV (08:41)
[2023-12-01] MEDS: NSS (PRESERVATIVE FREE) 10 ML IV (08:41)
--- NOTE | 2023-12-01 10:21 | CM ---
title department manager reviewed patient's chart and plan is for [facility] to meet with patient this morning at 11am.
Plan; Await follow up from [facility].
--- NOTE | 2023-12-01 10:40 | W.PN.HOSP.TC ---
Today's Communication/Plan
-
Discharge planning today.
Assessment / Plan
Assessment / Plan
Patient is a 33y F with PMH significant for anxiety / depression who presents to ED complaining of N/V x 3 days. Patient admits to daily marijuana use. She has prior history / diagnosis of cannabinoid hyperemesis and has been counseled to avoid
marijuana. Patient has had continud episodes of retching here in the ED despite multiple interventions.
Ass;
Cannabinoid Hyperemesis Syndrome
Leukocytosis - Likely Stress Response/improving
Anxiety / Depression
GERD
Chronic Pain Syndrome
Plan:
Advance diet to low residue today.
If she tolerates diet, plan to discharge home today.
Supportive care with IVFs, haloperidol, PRN BZDs, antiemetics, etc.
Avoid narcotic medications.
Follow for improvement in symptoms.
Would recommend outpatient follow-up with Psych for treatment of underlying anxiety disorder.
Again encouraged to stop smoking marijuana to prevent future episodes.
Will allow him to take warm showers to see if that helps
Anticipated Discharge: Today
Subjective/Interval History
-
Date of Service: December 01, 2023
Patient feels better today no vomiting or worsening abdominal pain. Patient wants to go home today.
Objective Data
-
Labs:
Laboratory Results
12/01/23
07:14
Sodium 134 L
Potassium 3.9
Chloride 104
Carbon Dioxide 21 L
BUN 13
Creatinine 0.6
Glucose 98
Calcium 9.2
Vital Signs:
Vital Signs
Temp Pulse Resp BP Pulse Ox
98.7 F 49 19 168/96 98
12/01/23 07:00 12/01/23 07:00 12/01/23 07:00 12/01/23 07:00 12/01/23 07:00
I&O
11/30/23 12/01/23 12/02/23
06:59 06:59 06:59
Intake Total 2240 / 2240 200 / 200
Balance 2240 / 2240 200 / 200
[2023-12-01 11:00] VITALS: BP 161/90
--- NOTE | 2023-12-01 11:18 | W.DCSUMMARY ---
Discharge Summary
Discharge Data
Date of Admission: 11/28/23
Date of Discharge: 12/01/23
-
Pending Results: No
Hospital Course
Patient 33 years old female with history of depression anxiety, marijuana use disorder, presented to the hospital abdominal pain nausea vomiting for few days prior to admission. She was given IV fluids, kept n.p.o., and given supportive care. She
did not require narcotics during this hospital stay. Patient was able to tolerate low residue diet without any problems. Patient eager to go home today. Renal function stable. White blood cell count trending down without any intervention so
likely reactive. She is mildly bradycardic but asymptomatic. No other events were noticed. She will be discharged in stable condition today.
Discharge duration: 32 minutes
Discharge Plan
-
Patient Disposition: Home (Routine Discharge)
Discharge Diagnosis/Procedures: Cannabinoid syndrome/cyclic vomiting syndrome. Reactive leukocytosis. Asymptomatic sinus bradycardia. Depression and anxiety.
Condition: Good
Diet: As tolerated
Activity: As tolerated
Blood Work: Please PCP to order CBC, BMP within 1 week
Referrals:
Primary care, provider [Other] (See less than 1 week)
Prescriptions:
Continued
omeprazole 40 mg capsule,delayed release(DR/EC)
40 mg PO DAILY 14 Days Qty: 14 0RF
gabapentin 600 mg tablet
600 mg PO TID
Discharge Orders:
Discharge Patient (As Directed); Ordered 12/01/23
Ordered By: Dani Bradford
Discharge Date and Time
Discharge Date/Time: 12/01/23 13:55
Print Language: SAMI
== END 2023-12-01 13:55 | disposition home or self-care (01) | DRG 392 ==
LOC: 4 WEST ACU 21:46
PROVIDERS: Internal Medicine; Physician Assistant; Physician Assistant Medical; ADMITTING PHYSICIAN Hospitalist; ATTENDING PHYSICIAN Hospitalist; EMERGENCY PHYSICIAN Student in an Organized Health Care Education/Training Program; PRIMARYCARE PHYSICIAN Family Medicine
DX: R11.10 Vomiting, unspecified (principal); F12.20 Cannabis dependence, uncomplicated; F32.A Depression, unspecified; K21.9 Gastro-esophageal reflux disease without esophagitis; G89.4 Chronic pain syndrome; F17.200 Nicotine dependence, unspecified, uncomplicated; E66.9 Obesity, unspecified; Z68.36 Body mass index [BMI] 36.0-36.9, adult
CPT/HCPCS: 80048; 80053; 83690; 83735; 84703; 85025; 85027; 93005; 96361; 96374; 96375; 99285

== ENCOUNTER 2023-12-07 18:35 | Emergency (ER) | payer OTHER, SELFPAY ==
[2023-12-07 18:38] VITALS: BP 220/129
[2023-12-07 19:12] VITALS: BP 190/96
--- NOTE | 2023-12-07 19:12 | ED.GENMED ---
History of Present Illness
General
Chief Complaint: Abdominal Symptoms
Source: patient
Exam Limitations: none
Time Seen by Provider: 12/07/23 18:49
Nursing documentation reviewed up to this point in time: agreed with
Travel History
Have you had any contact with someone who has COVID-19?: No
Do you have any symptoms of coronavirus? Fever > 100 degrees, chills, cough, shortness of breath, sore throat, loss of taste or smell, muscle aches, or headache?: No
History of Present Illness
History of Present Illness:
33-year-old female with past medical history of anxiety depression substance abuse Daily marijuana use and cyclic vomiting syndrome presenting to the emergency department today with concerns of persistent vomiting throughout the day today. Has been
using marijuana ongoingly. This feels similar to previous episodes. Any chest pain shortness of breath or fevers. Denies any recent illness. Had similar symptoms 1 week ago and was admitted to the hospital for it.
Past History
Past History
ED Past Medical History: Psychiatric (Anxiety, marijuana dependence) and Other (Cannabis hyperemesis syndrome, obesity, migraines)
ED Past Surgical History: None
Social History
Tobacco: Smoker
Alcohol: Former
Drug: Marijuana
Personal: Single
Living: with family
Employment: Employed
Family History
Family History: Other
Review of Systems
Review of Systems
Allergies reviewed?: Yes
All Other Systems: ROS reviewed and negative except as documented in HPI and ROS
Phy Exam
Physical Exam
Physical Exam:
GENERAL: Alert , patient uncomfortable retching and dry heaving on exam
EYE: pupils equal and reactive
NECK: Supple, no significant adenopathy.
ENT: o/p clr, mmm.
CARDIAC: Regular rate and rhythm .
LUNGS: Clear breath sounds bilaterally, no acute respiratory distress, no wheezes/rales/rhonchi
ABDOMEN: Soft, without focal tenderness, no r/g, no cvat
NEUROLOGICAL: Alert and oriented, no focal neuro deficits
SKIN: Warm and dry, skin intact.
MUSCULOSKELETAL: No edema, well perfused.
PSYCH: Normal and appropriate interaction.
Course
Orders/Labs/Results
Orders:
Orders
12/07/23 18:53
EKG [Electrocardiogram (*1)] Urgent
Reason for Study: Abdominal Pain
EKG- Treatment ONCE
Urinalysis Reflex To Culture Urgent
0.9% Sodium Chloride 1000 ml [Nss] 1,000 ml IV BOLUS
Famotidine [Pepcid] 20 mg IV NOW STA
Haloperidol Lactate [Haldol] 2 mg IV NOW STA
12/07/23 19:57
Complete Blood Count/With Diff Urgent
Comprehensive Metabolic Panel Urgent
Lipase Urgent
12/07/23 22:28
Haloperidol Lactate [Haldol] 1 mg IV NOW STA
Lorazepam [Ativan] 0.5 mg IV NOW STA
12/07/23 22:29
Lorazepam [Ativan] 1 mg IV NOW STA
Abnormal Lab Results
12/07/23
19:57
WBC 20.7 H 10^3/uL
(4.8-10.8)
MPV 10.7 H fL
(7.4-10.4)
Abs Immat Gran (auto) 0.1 H 10^3/uL
(0-0.05)
Absolute Neuts (auto) 19.1 H 10^3/uL
(1.4-6.5)
Absolute Lymphs (auto) 1.0 L 10^3/uL
(1.2-3.4)
Neutrophils % 92.5 H %
(42.2-75.2)
Lymphocytes % 4.9 L %
(20.5-51.1)
Sodium 134 L mmol/L
(135-145)
Carbon Dioxide 21 L mmol/L
(22-30)
Glucose 153 H mg/dl
(70-99)
12/07/23 19:57
12/07/23 19:57
Vital Signs
Initial and Last Documented VS:
Initial Vital Signs
Pulse Resp BP Pulse Ox
102 22 220/129 92
12/07/23 18:38 12/07/23 18:38 12/07/23 18:38 12/07/23 18:38
Last Documented Vital Signs
Temp Pulse Resp BP Pulse Ox
98.3 F 62 20 186/96 94
12/07/23 22:51 12/07/23 22:51 12/07/23 22:51 12/07/23 22:51 12/07/23 22:51
MDM/Problems Addressed
MDM/Problems Addressed:
33-year-old female presenting to the emergency department today with concerns of what she believes is a recurrent episode of cyclic vomiting syndrome. Seems to be consistent with this. No specific focal abdominal tenderness. Was given initial
dose of Haldol. Initially reassessed 1 hour after receiving medication patient was asleep. She was then reassessed a half an hour after that woke up and claims that her symptoms were not improved however she seemed to be sleeping for an hour and a
half. Patient given additional dose of Haldol again reassessed an hour was fast asleep appears to be stable for outpatient management at this point discharged home advised to return for any worsening, new or concerning symptoms and advised to
abstain from future marijuana use
*Critical Care Note
Total Time (30-74mins, 75-104mins- exclusive of procedures): Not Applicable
ED Attending Note
-
Portions of this chart may have been created with voice recognition software.� Occasional wrong word or��sound alike� substitutions may have occurred due to the inherent limitations of voice recognition software.
Discharge Plan
Departure
Patient Disposition: Home (Routine Discharge)
Date of Disposition: 12/07/23
Time of Disposition: 23:33
Patient with high blood pressure during this ER visit?: No
Condition: Good
Covid-19: Not Applicable
Discharge Problem:
Intractable nausea and vomiting
Instructions: Cannabis hyperemesis syndrome
Prescriptions:
No Action
omeprazole 40 mg capsule,delayed release(DR/EC)
40 mg PO DAILY 14 Days Qty: 14 0RF
gabapentin 600 mg tablet
600 mg PO TID
Referrals:
Hector Ladd MD [Family Provider] -
Activity Restrictions/Additional Instructions:
You came to the emergency department today with concerns of a vomiting syndrome. Please follow closely as an outpatient. Return to the emergency department any worsening, new or concerning symptoms.
Interventions
Interventions:
*General Assessment Last Done: 12/07/23 18:38
*Neglect/Abuse Screening Last Done: 12/07/23 20:31
*ED COVID-19 Vaccine History Last Done: 12/07/23 18:38
EI-Fucecn-Xvcgvfjfac Assessment Last Done: 12/07/23 19:41
Discharge Date and Time
Print Language: CITIZEN OF [place]
[2023-12-07] MEDS: HALDOL 2 MG IV (19:52)
[2023-12-07] MEDS: PEPCID 20 MG IV (19:52)
[2023-12-07] MEDS: NSS 1000 IV (19:52)
[2023-12-07 20:02] LABS: % Basophils 0.3 % (0-2); % Immature Granulocytes 0.4 % (0-0.5); % Lymphocytes 4.9 % (20.5-51.1); % Monocytes 1.9 % (1.7-9.3); % Neutrophils 92.5 % (42.2-75.2); Absolute Basophils 0.1 10^3/uL (0-0.2); Absolute Immature Granulocytes 0.1 10^3/uL (0-0.05); Absolute Monocytes 0.4 10^3/uL (0.1-0.6); Absolute Neutrophils 19.1 10^3/uL (1.4-6.5); Hematocrit 40.4 % (37.0-47.0); Hemoglobin 14.8 g/dL (12.0-16.0); Mean Corp Hgb Conc. 36.6 g/dL (33.0-37.0); Mean Corpuscular Volume 84.7 fL (81.0-99.0); Mean Platelet Volume 10.7 fL (7.4-10.4); Nucleated Red Blood Cells % 0 %; Platelet Count 271 10^3/uL (130-400); Red Blood Cell Count 4.77 10^6/uL (4.20-5.40); Red Cell Dist. Width 12.1 % (11.5-14.5); White Blood Cell Count 20.7 10^3/uL (4.8-10.8)
[2023-12-07 20:18] LABS: ALT (SGPT) 29 U/L (0-35); AST (SGOT) 25 U/L (14-36); Albumin 4.6 g/dl (3.5-5.0); Alkaline Phosphatase 67 U/L (38-126); Blood Urea Nitrogen 16 mg/dl (7-17); Calcium 10.2 mg/dl (8.4-10.2); Carbon Dioxide 21 mmol/L (22-30); Chloride 101 mmol/L (98-107); Glucose 153 mg/dl (70-99); Lipase 181 U/L (23-300); Potassium 3.9 mmol/L (3.5-5.1); Sodium 134 mmol/L (135-145); Total Bilirubin 0.8 mg/dl (0.2-1.3); Total Protein 7.7 g/dl (6.3-8.2); eGFR > 60.00
[2023-12-07 20:29] VITALS: BP 144/88
[2023-12-07] MEDS: HALDOL 1 MG IV (22:42)
[2023-12-07] MEDS: ATIVAN 1 MG IV (22:42)
[2023-12-07 22:51] VITALS: BP 186/96
[2023-12-07 23:45] VITALS: BP 130/79
== END 2023-12-08 00:29 | disposition home or self-care (01) ==
LOC: EMR 18:35
PROVIDERS: Physician Assistant; EMERGENCY PHYSICIAN Emergency Medicine; FAMILY PHYSICIAN Family Medicine
DX: R11.2 Nausea with vomiting, unspecified (principal); F41.9 Anxiety disorder, unspecified; F32.A Depression, unspecified; R11.15 Cyclical vomiting syndrome unrelated to migraine; F12.20 Cannabis dependence, uncomplicated; E66.9 Obesity, unspecified; K21.9 Gastro-esophageal reflux disease without esophagitis; G43.909 Migraine, unspecified, not intractable, without status migrainosus; F41.0 Panic disorder [episodic paroxysmal anxiety]; F17.210 Nicotine dependence, cigarettes, uncomplicated; Z91.048 Other nonmedicinal substance allergy status
CPT/HCPCS: 99284; 96374; 96375 ×2; 96361 ×3; 96376; 80053; 83690; 85025; 93005

== ENCOUNTER 2024-12-06 14:09 | Inpatient (IN) | payer SELFPAY ==
[2024-12-06] VITALS (7 sets, daily range): BP systolic 144–180; BP diastolic 52–111; BMI 36.9; BMI 36.4
--- NOTE | 2024-12-06 09:13 | ED.GENMED ---
History of Present Illness
General
Chief Complaint: Abdominal Symptoms
Source: patient
Exam Limitations: none
Time Seen by Provider: 12/06/24 09:09
History of Present Illness
History of Present Illness:
See MDM
Past History
Past History
ED Past Medical History: Psychiatric (Anxiety, marijuana dependence) and Other (Cannabis hyperemesis syndrome, obesity, migraines)
ED Past Surgical History: None
Social History
Tobacco: Smoker
Alcohol: Former
Drug: Marijuana
Personal: Single
Living: with family
Employment: Employed
Family History
Family History: Other
Phy Exam
Physical Exam
Physical Exam:
See MDM
Course
Orders/Labs/Results
Orders:
Orders
12/06/24 09:12
0.9% Sodium Chloride 1000 ml [Nss] 1,000 ml IV BOLUS
Haloperidol Lactate [Haldol] 1 mg IM NOW STA
Test Result ONCE
12/06/24 09:24
Complete Blood Count/With Diff Urgent
Comprehensive Metabolic Panel Urgent
HCG, Serum Qualitative Screen Urgent
Lipase Urgent
12/06/24 10:31
Ondansetron Injectable [Zofran] 4 mg IV NOW STA
12/06/24 10:35
CT Abd/pelvis W Iv Cont Urgent
Comment:
Reason For Exam: Generalized abd pain, vomiting
Haloperidol Lactate [Haldol] 1 mg IM NOW STA
12/06/24 11:00
Capsaicin [Zostrix-Hp 0.075% Cream] See Dose Instructions TOPICAL ONCE ONE
12/06/24 11:31
Fentanyl, Urine Urgent
Urine Drug Abuse Screen Urgent
Date Specimen was Collected: 12/06/24
Time Specimen was Collected: 10:43
Abnormal Lab Results
12/06/24 12/06/24
09:24 11:31
WBC 17.3 H 10^3/uL
(4.8-10.8)
MPV 10.5 H fL
(7.4-10.4)
Abs Immat Gran (auto) 0.2 H 10^3/uL
(0-0.05)
Absolute Neuts (auto) 14.7 H 10^3/uL
(1.4-6.5)
Immature Gran % 1.0 H %
(0-0.5)
Neutrophils % 84.9 H %
(42.2-75.2)
Lymphocytes % 10.6 L %
(20.5-51.1)
Chloride 109 H mmol/L
(98-107)
Carbon Dioxide 20 L mmol/L
(22-30)
Glucose 165 H mg/dl
(70-99)
U Marijuana (THC) Screen Positive H
(Negative)
12/06/24 09:24
12/06/24 09:24
Vital Signs
Initial and Last Documented VS:
Initial Vital Signs
Temp Pulse Resp BP
97.3 F 97 20 167/111
12/06/24 08:56 12/06/24 08:56 12/06/24 08:56 12/06/24 08:56
Last Documented Vital Signs
Temp Pulse Resp BP Pulse Ox
97.3 F 97 20 144/78 95
12/06/24 08:56 12/06/24 08:56 12/06/24 08:56 12/06/24 10:00 12/06/24 11:45
MDM/Problems Addressed
Differential Diagnosis Includes:
HPI and MDM Narrative:
34-year-old female presenting with nausea and vomiting. Patient has a history of cannabis hyperemesis syndrome. Patient states this feels very similar to the last time she was admitted 1 year ago. She does acknowledge that she believes this is
cannabis induced. Her last use was yesterday. On exam, patient appears uncomfortable but has a soft and nontender abdomen. Prior records indicate that IM Haldol has worked in the past. Will give fluids, obtain basic blood work and give IM Haldol
Physical exam
General: Mildly uncomfortable, hyperventilating
HEENT: protecting airway. Dry mucous membrane
Neck: appears supple
CV: No evidence of cyanosis
Resp: No accessory muscle use
Abd: Non-distended. Soft and nontender
Extremities: No deformities
Neuro: alert
Psych: Normal affect
Skin: Intact
Problems Addressed including Acute and Chronic Conditions affecting care:
1. Hyperemesis
Acuity: acute
Prognosis: stable
Details: Given prior history, likely cannabis induced. Will give IM Haldol obtain basic blood work
Updates
Patient found to have leukocytosis but this is likely reactive from vomiting. She still has a nonsurgical belly exam
Patient still nauseous after IM Haldol. Will try capsaicin cream and IV Zofran
Patient still with intractable nausea and vomiting. Given her inability to tolerate p.o., patient will ultimately require admission. Will obtain CT abdomen/pelvis to rule out any other pathology
CT negative for acute pathology
Differential Diagnosis (but not limited to): Cannabis induced hyperemesis, colitis, gastroenteritis
Testing considered: UA
Drug therapy (if applicable): OTC meds, please see d/c instruction regarding Rx drugs
Amount and/or Complexity of Data Reviewed
Clinical info obtained from: Patient
External data reviewed: Prior admission for cannabis induced hyperemesis
Labs I independently reviewed (but not limited to): Leukocytosis
Radiology: the CT scan was personally and independently reviewed. In addition, official CT report reviewed.
Pulse Ox: not hypoxic
EKG independently reviewed: N/A
Data Warehouse Manager: N/A
Critical Care: N/A
Risk of Complication:
Social Determinants of health: Good social support
Discussed with other providers: Hospitalist
Escalation of Care includes Admit/Obs: Given inability to tolerate p.o., will admit
Occasional wrong word or 'sound a like' substitutions may have occurred due to the inherent limitations of voice recognition software. Read the chart carefully and recognize, using context, where substitutions have occurred.
*Critical Care Note
Total Time (30-74mins, 75-104mins- exclusive of procedures): Not Applicable
ED Attending Note
-
Portions of this chart may have been created with voice recognition software.� Occasional wrong word or��sound alike� substitutions may have occurred due to the inherent limitations of voice recognition software.
Discharge Plan
Departure
Patient Disposition: Admit
Date of Disposition: 12/06/24
Time of Disposition: 12:41
Admit to: Med/Surg
Presentation/result/management discussed w/ accepting MD/DO: Hospitalist
Discharge Problem:
Intractable nausea and vomiting
Prescriptions:
No Action
omeprazole 40 mg capsule,delayed release(DR/EC)
40 mg PO DAILY 14 Days Qty: 14 0RF
gabapentin 600 mg tablet
600 mg PO TID
Referrals:
Hector Ladd MD [Family Provider] -
Interventions
Interventions:
*Risk Screen - Suicide Last Done: 12/06/24 09:12
*General Assessment Last Done: 12/06/24 09:12
*Neglect/Abuse Screening Last Done: 12/06/24 09:12
*ED- Fall Risk Assessment Last Done: 12/06/24 09:12
*ED COVID-19 Vaccine History Last Done: 12/06/24 09:12
LW-Ezcien-Qeuakwrrgk Assessment Last Done: 12/06/24 09:12
Discharge Date and Time
Print Language: [place]
[2024-12-06] MEDS: NSS 1000 IV (09:26)
[2024-12-06] MEDS: HALDOL 1 MG IM ×2 (09:30→10:46)
[2024-12-06 09:46] LABS: % Basophils 0.6 % (0-2); % Eosinophils 0.5 % (0-6); % Lymphocytes 10.6 % (20.5-51.1); % Monocytes 2.4 % (1.7-9.3); % Neutrophils 84.9 % (42.2-75.2); Absolute Basophils 0.1 10^3/uL (0-0.2); Absolute Eosinophils 0.1 10^3/uL (0-0.7); Absolute Immature Granulocytes 0.2 10^3/uL (0-0.05); Absolute Lymphocytes 1.8 10^3/uL (1.2-3.4); Absolute Monocytes 0.4 10^3/uL (0.1-0.6); Absolute Neutrophils 14.7 10^3/uL (1.4-6.5); Hematocrit 40.9 % (37.0-47.0); Hemoglobin 14.4 g/dL (12.0-16.0); Mean Corp Hgb Conc. 35.2 g/dL (33.0-37.0); Mean Corpuscular Hgb 29.6 pg (27.0-31.0); Mean Corpuscular Volume 84.2 fL (81.0-99.0); Mean Platelet Volume 10.5 fL (7.4-10.4); Nucleated Red Blood Cells % 0 %; Platelet Count 327 10^3/uL (130-400); Red Blood Cell Count 4.86 10^6/uL (4.20-5.40); Red Cell Dist. Width 11.8 % (11.5-14.5); White Blood Cell Count 17.3 10^3/uL (4.8-10.8)
[2024-12-06 10:06] LABS: HCG, Serum Qualitative Screen Negative
[2024-12-06 10:08] LABS: ALT (SGPT) 30 U/L (0-35); AST (SGOT) 25 U/L (14-36); Albumin 4.6 g/dl (3.5-5.0); Alkaline Phosphatase 77 U/L (38-126); Blood Urea Nitrogen 17 mg/dl (7-17); Calcium 9.9 mg/dl (8.4-10.2); Carbon Dioxide 20 mmol/L (22-30); Chloride 109 mmol/L (98-107); Estimated Creatinine Clearance > 125 ml/min; Glucose 165 mg/dl (70-99); Potassium 4.4 mmol/L (3.5-5.1); Sodium 140 mmol/L (135-145); Total Bilirubin 0.9 mg/dl (0.2-1.3); Total Protein 7.9 g/dl (6.3-8.2); eGFR > 60.00
[2024-12-06 10:45] LABS: Lipase 153 U/L (23-300)
[2024-12-06] MEDS: ZOFRAN 4 MG IV (10:47)
[2024-12-06] MEDS: ZOSTRIX-HP 0.075% CREAM 1 APPLIC TOPICAL (11:35)
[2024-12-06 12:13] LABS: Amphetamines Negative (Negative); Barbiturates Negative (Negative); Benzodiazepines Negative (Negative); Buprenorphine Negative (Negative); Cocaine Negative (Negative); Marijuana Positive (Negative); Methadone Negative (Negative); Methamphetamines Negative (Negative); Opiates Negative (Negative); Phencyclidine Negative (Negative); Tricyclic Antidepressants Negative (Negative)
[2024-12-06 13:27] LABS: Fentanyl, Urine Negative (Negative)
[2024-12-06] MEDS: REGLAN 10 MG IV ×2 (13:30→19:29)
[2024-12-06] MEDS: PROTONIX IV 80 MG IV (13:31)
--- NOTE | 2024-12-06 13:35 | HPS.HSE ---
Family Physician
-
Family Physician: Hector Ladd
Chief Complaint
-
Nausea and vomiting for 1 week duration
History of Present Illness
Patient is a 34y F with PMH significant for anxiety / depression who presents to ED complaining of N/V x 7 days. Patient admits to daily marijuana use. She has prior history / diagnosis of cannabinoid hyperemesis and has been counseled to avoid
marijuana. Patient has had continued episodes of retching here in the ED despite multiple interventions. She reported abdominal pain. Scan of the abdomen and pelvis with IV contrast did not show acute findings. She denied drug use other than
marijuana. Urine drug screen positive for marijuana. She admits to using marijuana 3-4 times daily.
Medical History
Past Medical History
Past Medical History: Reports Other (Anxiety/Depression/Panic Disorder GERD Chronic Pain)
Past Surgical History: Reports None and Other
Social History
Tobacco: Smoker
Alcohol: None
Drug: Marijuana
Personal: Single
Living: With Family
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
Family History
Family History: Not pertinent
Allergies / Home Medications
Allergies reflects when Allergies were last updated in [employer].
Home Medications with original date entered in [employer]
Allergy/Medication List:
Allergies
Allergy/AdvReac Type Severity Reaction Status Date / Time
marijuana (cannabis) Allergy Nausea / Verified 12/06/24 08:59
Vomiting
Home Medications
gabapentin 300 mg capsule 300 mg PO TID 12/06/24
Review of Systems
-
History Source: Patient
A 12 point ROS was completed and negative except as noted: Yes
Constitutional: Denies Fever or Chills
EENT: Denies Sore Throat
Respiratory: Denies Cough
Cardiac: Denies Chest Pain
Abdomen/GI: Reports Abdominal Pain, Nausea and Vomiting
: Denies Dysuria
Musculoskeletal: Denies Joint Pain or Joint Swelling
Neurological: Denies Numbness
Endocrine: Denies Temp Intolerance
Hematologic/Lymphatic: Denies Bruising
Psych: Reports Anxiety
Physical Exam
Vital Signs
Vital Signs
Temp Pulse Resp BP Pulse Ox
97.3 F 97 20 144/78 95
12/06/24 08:56 12/06/24 08:56 12/06/24 08:56 12/06/24 10:00 12/06/24 11:45
Physical Exam
General: Well Developed and Other (Retching )
HEENT: Anicteric, Moist mucous membranes and Atraumatic
Respiratory: Clear
Cardiac: S1/S2 and Murmur
GI: Soft, Non Distended and Tender
Genito-urinary: No Garcia
Musculoskeletal: No Clubbing, No Cyanosis and No Edema
Skin: No Jaundice
Neuro: AO x 3
Psych: Calm and Intact Judgment/Insight
Laboratory Results
-
12/06/24 09:24
12/06/24 09:24
Laboratory Results
Total Bilirubin 0.9 mg/dl (0.2-1.3) 12/06/24 09:24
AST 25 U/L (14-36) 12/06/24 09:24
ALT 30 U/L (0-35) 12/06/24 09:24
Alkaline Phosphatase 77 U/L (38-126) 12/06/24 09:24
Lipase 153 U/L (23-300) 12/06/24 09:24
Impression/Plan
-
34 years old female presented with intractable nausea vomiting for 1 week duration
#Intractable nausea and vomiting, inability to tolerate oral intake
Differential diagnosis include cannabis Hyperemesis Syndrome
Patient had similar presentation before. CAT scan of the abdomen and pelvis did not show acute findings.
Continue supportive care with IV fluid and liquid diet as tolerated
-Continue symptom control with anti-emetics
-Afebrile
-Continue with PPI
- Consult GI
-Reviewed with patient importance of avoiding marijuana in the future
#Leukocytosis, likely stress reaction
-Continue to monitor
#Anxiety/Depression/Panic Disorder
-Patient would benefit from psych evaluation as outpatient to ensure better symptom control in hopes of avoiding marijuana in the future
She does not have suicidal or homicidal ideation
#GERD
-Continue Protonix
#Chronic Pain
-Continue gabapentin when able to take oral pills.
DVT proph: Lovenox
Code Status: Full Code
Total time spent to see the patient, examine the patient, review data and lab results, discuss treatment plan with patient, ER doctor and nursing staff around 75 minutes
[2024-12-06] MEDS: D5/0.9% SODIUM CHLORIDE 1000 IV ×2 (15:30→21:02)
--- NOTE | 2024-12-06 16:15 | PTCARENOTE ---
Received pt from ER via stretcher, accompanied by ER staff. Pt AAO x3, STEVENS well, ambulated to bed with minimal assistance; denies weakness/dizziness. Pt keeps eyes closed when conversing with staff. VSS. On room air- pulse ox 98%, no SOB noted.
Abd obese, soft; tender, BS decreased; pt with (+) retching/nausea; vomiting small amts clear to light bile-colored secretions. To start full liquid diet. Pt DTV; states will void in BR. Afebrile; skin W/D/I. IVF's D5 Ns @ 150 ml/hr infusing via
Lt hand without sx of infiltration. Resting quietly at present. Will continue to monitor.
[2024-12-06] MEDS: NSS (PRESERVATIVE FREE) 10 ML IV (19:28)
[2024-12-06] MEDS: PROTONIX IV 40 MG IV (19:28)
[2024-12-06] MEDS: HEPARIN 5000 UNITS SC (19:31)
[2024-12-07] MEDS: D5/0.9% SODIUM CHLORIDE 1000 IV ×3 (03:33→23:33)
[2024-12-07] MEDS: REGLAN 10 MG IV (03:33)
[2024-12-07 07:00] VITALS: BP 138/66
--- NOTE | 2024-12-07 08:13 | CON.GI ---
Addendum entered and electronically signed by Kelly Kurtz Do, MD 12/07/24 11:16:
I saw and examined the patient.
The BAND SAWING MACHINE OPERATOR's note was reviewed and I agree with the note.
Comment: Romelia is a 34yo W with h/o obesity and anxiety who presents with abd pain with intractable N/V in setting of recent resumption of cannabis. Symptoms improve with hot showers. Vitals stable exam obese sleepy but arousable, vomitus brown
in bin, diffusely TTP. Labs reviewed
Impression
- N/V and abd pain
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
- Obesity
- Retained food in stomach on CTAP
- anxiety
- Fatty liver
Recommendation
- Reglan for nausea
- Protonix 40mg IV BID
- Pain management
- Adv diet as tolerates
- Cannabis cessation
- A1c Pending, if positive and symptoms persists can pursue gastric emptying study outpatient basis. Would not do inpatient as opioids can cause false +
- Discussed EGD she declines as 2 in past already
Will follow with you
Original Note:
Consultation
-
Date/Time Consultation Requested: 12/06/24 1500
Date/Time Consultation Performed: 12/07/24 0815
Requesting Provider: Malik Cunningham MD
Performing Provider: ALEX Patel, Kelly Almeida MD
Reason for Consultation: nausea/vomiting
Medical History
Chief Complaint / HPI
Chief Complaint: nausea/vomiting
History of Present Illness:
The patient is a 31-year-old female with a past medical history significant for severe anxiety, cyclic nausea and vomiting syndrome secondary to daily marijuana use with multiple prior admissions, fatty liver, chronic abdominal pain, who presents
for recurrent admission with intractable vomiting and abdominal pain. Pt admits to being off Cannibis for some time but began with use about 2 months ago with anxiety. She was doing fine but did take some NSAIDs last week for headache and began
with vomiting. She admits that hot showers improve symptoms.
Pt admits to hematemesis in past but now vomiting small amount of clear fluid with dry heaves. She also admits to severe upper abdominal pain requiring narcotics use. She otherwise denies odynophagia, dysphagia, GERD, diarrhea, constipation,
blood or black in stools. On admission WBC 20,700 with stable hbg 14.8, Na 134, glucose 153 and normal LFT's and lipase. Ct on admission with limited without oral contrast, contracted GB with food in stomach. No hx colonoscopy in past but EGD
[place] 2022 with normal esophagus, small HH normal duodenum no specimens collected.
Past Medical History
Past Medical History: GERD, Psychiatric (severe anxiety/depression) and Other (hx canabis hyperemesis syndrome, fatty liver, chronic abdominal pain)
Past Surgical History: None
Social History
Tobacco: Smoker (/ PPD)
Alcohol: None
Drug: Marijuana (3x daily)
Living: With Family (sister )
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
Family History
Family History: Other (no family hx GI issues )
Allergies / Home Medications
Allergy/AdvReac Type Severity Reaction Status Date / Time
marijuana (cannabis) Allergy Nausea / Verified 12/06/24 15:37
Vomiting
�Medication �Instructions �Recorded
gabapentin 300 mg capsule 300 mg PO TID 12/06/24
Review of Systems
-
History Source: Patient
Constitutional: Reports No Symptoms
EENT: Reports No Symptoms
Respiratory: Reports No Symptoms
Cardiac: Reports No Symptoms
Abdomen/GI: Reports Abdominal Pain, Nausea and Vomiting
: Reports No Symptoms
Musculoskeletal: Reports No Symptoms
Skin: Reports No Symptoms
Neurological: Reports Headache and Weakness
Endocrine: Reports No Symptoms
Hematologic/Lymphatic: Reports No Symptoms
Vital Signs
Temp Pulse Resp BP Pulse Ox
97.9 F 64 22 176/85 97
12/06/24 23:55 12/06/24 23:55 12/06/24 23:55 12/06/24 23:55 12/06/24 23:55
Physical Exam
Exam
General: Well Developed, Well Nourished and Other (some distress with nausea and vomiting)
HEENT: Normocephalic and Anicteric
Respiratory: Clear
Cardiac: Regular Rhythm
GI: Soft, Non Distended and Tender (epigastric )
Musculoskeletal: No Clubbing and No Cyanosis
Skin: Warm and Dry
Neuro: Awake, Alert and AO x 3
Psych: Calm
Results
WBC 17.3 10^3/uL (4.8-10.8) H 12/06/24 09:24
Hgb 14.4 g/dL (12.0-16.0) 12/06/24 09:24
Hct 40.9 % (37.0-47.0) 12/06/24 09:24
MCV 84.2 fL (81.0-99.0) 12/06/24 09:24
Plt Count 327 10^3/uL (130-400) 12/06/24 09:24
Absolute Neuts (auto) 14.7 10^3/uL (1.4-6.5) H 12/06/24 09:24
Sodium 140 mmol/L (135-145) 12/06/24 09:24
Potassium 4.4 mmol/L (3.5-5.1) 12/06/24 09:24
Chloride 109 mmol/L (98-107) H 12/06/24 09:24
Carbon Dioxide 20 mmol/L (22-30) L 12/06/24 09:24
BUN 17 mg/dl (7-17) 12/06/24 09:24
Creatinine 0.7 mg/dL (0.6-1.0) 12/06/24 09:24
Calcium 9.9 mg/dl (8.4-10.2) 12/06/24 09:24
Total Bilirubin 0.9 mg/dl (0.2-1.3) 12/06/24 09:24
AST 25 U/L (14-36) 12/06/24 09:24
ALT 30 U/L (0-35) 12/06/24 09:24
Alkaline Phosphatase 77 U/L (38-126) 12/06/24 09:24
Lipase 153 U/L (23-300) 12/06/24 09:24
Diagnostic Image Results:
12/06/24 CT Abd/pelvis W Iv Cont
Limited evaluation of virtually completely empty intestinal tract as a result of lack of oral contrast, without intestinal obstruction or free air.
Unremarkable appendix.
Mild hepatomegaly.
Contracted gallbladder likely postprandial, food material seen within the stomach.
Prior GI Procedures:
EGD: 2022 with normal esophagus, small HH normal duodenum no specimens collected.
Colonoscopy: none
Assessment / Plan
-
The patient is a 31-year-old female with a past medical history significant for severe anxiety, cyclic nausea and vomiting syndrome secondary to daily marijuana use with multiple prior admissions, fatty liver, chronic abdominal pain, who presents
for recurrent admission with intractable vomiting and abdominal pain. Pt admits to being off Cannibis for some time but began with use about 2 months ago with anxiety. She was doing fine but did take some NSAIDs last week for headache and began
with vomiting. She admits that hot showers improve symptoms. On admission WBC 20,700 with stable hbg 14.8, Na 134, glucose 153 and normal LFT's and lipase. Ct on admission with limited without oral contrast, contracted GB with food in stomach. No
hx colonoscopy in past but EGD 2022 with normal esophagus, small HH normal duodenum no specimens collected.
Problem list:
-intractable nausea/vomiting
-chronic marijuana use
-chronic abdominal pain
- anxiety/depression
-elevated FBS
-leukocytosis
other med problems:
-GERD
-chronic pain
Recommendations:
-Etiology of intractable nausea/vomiting likely secondary to cannabis hyperemesis syndrome due to restart of marijuana use, anxiety related, possible gastroparesis with retained food in stomach with chronic glucose elevation vs PUD with recent NSAID
use vs other
cont supportive care- pain control, reglan PRN, PPI BID, IVF
limit narcotics if able
add hbg A1C to exclude diabetes with persistent elevated glucose
-Reinforced she will need to stop marijuana use indefinitely- has quit in past
-if noted hematemesis consider EGD-- pt wishes to hold off for now
-OP follow up with hx fatty liver - LFT remain normal
updated nursing staff
Total Time Spent with Patient (in minutes): 10
-
-
Thank you for consultation and allowing me to participate in the patient's care. Please call the agronomy professor GI physician during the after hours with any questions or concerns.
[2024-12-07] MEDS: MORPHINE SULFATE 2 MG IV (08:53)
[2024-12-07] MEDS: NSS (PRESERVATIVE FREE) 10 ML IV ×2 (08:55→20:40)
[2024-12-07] MEDS: PROTONIX IV 40 MG IV ×2 (08:55→20:40)
[2024-12-07] MEDS: HEPARIN 5000 UNITS SC ×2 (08:56→20:39)
--- NOTE | 2024-12-07 08:57 | W.PN.HOSP.TC ---
Today's Communication/Plan
-
Change to ATC Low dose Ativan with Compazine
c/w IVF, PRN Morphine, PPI, Reglan
Assessment / Plan
Assessment / Plan
Physical Exam
General: Well Developed and Other (Retching )
HEENT: Anicteric, Moist mucous membranes and Atraumatic
Respiratory: Clear
Cardiac: S1/S2 and Murmur
GI: Soft, Non Distended and Tender
Genito-urinary: No Garcia
Musculoskeletal: No Clubbing, No Cyanosis and No Edema
Skin: No Jaundice
Neuro: AO x 3
Psych: Calm and Intact Judgment/Insight
34 years old female presented with intractable nausea vomiting for 1 week duration
#Intractable nausea and vomiting, inability to tolerate oral intake
consistent with cannabis Hyperemesis Syndrome
She continues to have N/V
Due to continued symptoms, Will do low dose Ativan ATC and Compazine to help
Will do low dose morphine Patient had similar presentation before. CAT scan of the abdomen and pelvis did not show acute findings.
Continue supportive care with IV fluid and liquid diet as tolerated
-Continue symptom control with anti-emetics
-Afebrile
-Continue with PPI
- Consulted GI
-Reviewed with patient importance of avoiding marijuana in the future
#Leukocytosis, likely stress reaction
-Continue to monitor
#Anxiety/Depression/Panic Disorder
-Patient would benefit from psych evaluation as outpatient to ensure better symptom control in hopes of avoiding marijuana in the future
She does not have suicidal or homicidal ideation
#GERD
-Continue Protonix
#Chronic Pain
-Continue gabapentin when able to take oral pills.
DVT proph: SQ Heparin
Code Status: Full Code
Total time spent to see the patient, examine the patient, review data and lab results, discuss treatment plan with patient and nursing staff around 55 minutes
Anticipated Discharge: > 48 hours
Subjective/Interval History
-
Date of Service: December 07, 2024
She feels nausea and still vomiting
She is asking for morphine for abdominal pain from vomiting
Objective Data
-
Vital Signs:
Vital Signs
Temp Pulse Resp BP Pulse Ox
97.9 F 64 22 176/85 97
12/06/24 23:55 12/06/24 23:55 12/06/24 23:55 12/06/24 23:55 12/06/24 23:55
I&O
12/06/24 12/07/24 12/08/24
06:59 06:59 06:59
Intake Total 2860 / 2860
Output Total 100 / 100
Balance 2760 / 2760
[2024-12-07] MEDS: COMPAZINE 5 MG IV ×3 (10:36→23:33)
[2024-12-07] MEDS: NSS (PRESERVATIVE FREE) 0.125 ML IV ×2 (10:37→17:33)
[2024-12-07] MEDS: ATIVAN 0.25 MG IV ×2 (10:37→17:32)
[2024-12-07 12:18] LABS: Glycohemoglobin (HgbA1c) 5.4 % (4.0-5.6)
[2024-12-07 15:51] VITALS: BP 182/97
--- NOTE | 2024-12-07 15:57 | CM ---
Patient was sleepy and nauseated. She requested CM speak with her family for background.
Spoke with her mom Alena [phone].Mom said pt is independent and drives . 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 Pt lives with her sister Kellee in an apartment with 26 steps to enter. Pt has been to [facility] 2 years ago for substance abuse. She has
been sick in hospital before from marijuana use. [facility] notified. Pt known to to [facility] . As per Ivelisse [facility] pt makes too much money.
Pharmacy [facility]
PCP Dr Ladd
PLAN Discharge planning on going
[2024-12-07] MEDS: D5/0.9% SODIUM CHLORIDE IV ×2 (18:12→20:42)
[2024-12-07 23:57] VITALS: BP 159/99
[2024-12-08] MEDS: NSS (PRESERVATIVE FREE) 0.125 ML IV ×2 (01:17→06:34)
[2024-12-08] MEDS: ATIVAN 0.25 MG IV ×2 (01:18→06:34)
[2024-12-08] MEDS: COMPAZINE 5 MG IV ×2 (06:33→11:21)
[2024-12-08 07:37] VITALS: BP 159/97
[2024-12-08] MEDS: HEPARIN 5000 UNITS SC (07:59)
[2024-12-08] MEDS: PROTONIX IV 40 MG IV (08:00)
[2024-12-08] MEDS: D5/0.9% SODIUM CHLORIDE 1000 IV (08:00)
[2024-12-08] MEDS: NSS (PRESERVATIVE FREE) 10 ML IV (08:00)
--- NOTE | 2024-12-08 09:39 | W.PN.HOSP.TC ---
Today's Communication/Plan
-
Patient insists on going home
will dc if tolerates diet and able to walk without feeling dizzy or imbalanced. But will need a ride. d/w nursing staff
Assessment / Plan
Assessment / Plan
Physical Exam
General: Well Developed and comfortable
HEENT: Anicteric, Moist mucous membranes and Atraumatic
Respiratory: Clear
Cardiac: S1/S2 and Murmur
GI: Soft, Non Distended and not Tender
Genito-urinary: No Garcia
Musculoskeletal: No Clubbing, No Cyanosis and No Edema
Skin: No Jaundice
Neuro: AO x 3
Psych: Calm and Intact Judgment/Insight
34 years old female presented with intractable nausea vomiting for 1 week duration
#Intractable nausea and vomiting, inability to tolerate oral intake
consistent with cannabis Hyperemesis Syndrome
She reports improvement in her symptoms and was able to eat, she wants to go home
s/p Compazine and low dose Ativan
Advance diet as tolerated
-Continue symptom control with PRN anti-emetics
-Afebrile
-s/p PPI
- Consulted GI, c/w supportive care
Urine drug screen negative except for Marijuana
-Reviewed with patient importance of avoiding marijuana in the future
#Leukocytosis, likely stress reaction
Afebrile
#Anxiety/Depression/Panic Disorder
-Patient would benefit from psych evaluation as outpatient to ensure better symptom control in hopes of avoiding marijuana in the future
She does not have suicidal or homicidal ideation
#GERD
-Continue Protonix
#Chronic Pain
-Continue gabapentin when able to take oral pills.
DVT proph: SQ Heparin
Code Status: Full Code
Total discharge time spent to see the patient, examine the patient, review data and lab results, discuss discharge plan with patient and nursing staff around 55 minutes
Anticipated Discharge: Today
Subjective/Interval History
-
Date of Service: December 08, 2024
She is feeling better
No chest pain
No abdominal pain
She is able to take oral diet
She wants t go home today , she reports hospital bed is making her unable to sleep
Objective Data
-
Vital Signs:
Vital Signs
Temp Pulse Resp BP Pulse Ox
98.1 F 58 18 159/97 96
12/08/24 07:37 12/08/24 07:37 12/08/24 07:37 12/08/24 07:37 12/08/24 07:37
I&O
12/07/24 12/08/24 12/09/24
06:59 06:59 06:59
Intake Total 2860 / 2860 3237 / 3237
Output Total 100 / 100
Balance 2760 / 2760 3237 / 3237
[2024-12-08] MEDS: ATIVAN 0.5 MG IV (11:21)
[2024-12-08] MEDS: NSS (PRESERVATIVE FREE) 0.25 ML IV (11:59)
--- NOTE | 2024-12-08 15:54 | DOWNTIME ---
There was a [employer] Client Hoist Operator Downtime on 12/08/2024 from 1230 to 12/08/2024 at 1550. Downtime documentation of patient's care, including medication administrations, has been reconciled in the electronic record per guidelines. Refer to the
patient's paper chart under the miscellaneous tab to see printed paper medication records and downtime forms.
--- NOTE | 2024-12-08 16:01 | PTCARENOTE ---
pt discharged during downtime. d/c orders written in chart. iv midline removed by VAT. reviewed medications and need to refrain from using marijuana. pt ambulated in hallway prior to discharge. pt stated she felt ok and insisted on leaving.
--- NOTE | 2024-12-08 16:17 | CM ---
MD indicated pt ready for discharge.
Spoke with pt in room . She said she felt better and was ready for discharge.
Offered recourses she declined .
She said her brother Alvarez would drive her home and she lives with sister Kellee.
PLAN Home no needs
--- NOTE | 2024-12-08 18:31 | W.DCSUMMARY ---
Discharge Summary
Discharge Data
Date of Admission: 12/06/24
Date of Discharge: 12/08/24
-
Pending Results: No
Hospital Course
34 years old female presented with nausea and vomiting. She reported abdominal discomfort. Patient was evaluated in the emergency room. Patient has history of cannabis induced hyperemesis. Patient reported that she was using marijuana multiple
times a day despite having similar reaction in the past and was advised to avoid it. Urine drug screen was positive for marijuana only. Patient was admitted to the hospital. Scan of the abdomen and pelvis did not show acute findings. She was
evaluated by class b truck driver and recommended supportive care with antiemetic medications and abstinence from marijuana. Patient started to improve slowly. Her hemoglobin A1c was 5.4. Patient was able to tolerate diet and she expressed her
wishes to continue recuperation at home. Patient was counseled to avoid marijuana use and she verbalized understanding. She was able to ambulate independently. Patient remained hemodynamically stable was discharged home in a stable condition.
Discharge Plan
-
Patient Disposition: Home (Routine Discharge)
Discharge Diagnosis/Procedures: Cannabis induced hyperemesis
Diet: As tolerated
Prescriptions:
New
ondansetron HCl 4 mg tablet
4 mg PO TID PRN (Reason: nausea and vomiting) Qty: 10 0RF
Continued
gabapentin 300 mg Capsule
300 mg PO TID
Discharge Orders:
Discharge Patient (As Directed); Ordered 12/08/24
Ordered By: Georgi Cunningham
Discharge Date and Time
Discharge Date/Time: 12/08/24 14:30
Print Language: GERMAN
== END 2024-12-08 14:30 | disposition home or self-care (01) | DRG 392 ==
LOC: 4 EAST ACU 14:09
PROVIDERS: ADMITTING PHYSICIAN Internal Medicine; EMERGENCY PHYSICIAN Student in an Organized Health Care Education/Training Program; FAMILY PHYSICIAN Family Medicine; OTHER PHYSICIAN Internal Medicine Gastroenterology
DX: R11.2 Nausea with vomiting, unspecified (principal); F12.20 Cannabis dependence, uncomplicated; D72.829 Elevated white blood cell count, unspecified; K21.9 Gastro-esophageal reflux disease without esophagitis; G89.29 Other chronic pain; F17.210 Nicotine dependence, cigarettes, uncomplicated; F41.9 Anxiety disorder, unspecified; F32.A Depression, unspecified; F41.0 Panic disorder [episodic paroxysmal anxiety]; E66.9 Obesity, unspecified; K76.0 Fatty (change of) liver, not elsewhere classified; Z68.36 Body mass index [BMI] 36.0-36.9, adult; Z79.899 Other long term (current) drug therapy
CPT/HCPCS: 74177; 80053; 80306; 80307; 83036; 83690; 84703; 85025; 93005; 96361; 96372; 96374; 96375; 99285; 99406; Q9967

== ENCOUNTER 2025-02-16 14:20 | Inpatient (IN) | payer OTHER, SELFPAY ==
[2025-02-15] VITALS (17 sets, daily range): BP systolic 126–187; BP diastolic 64–110; BMI 37.8; BMI 37.2
--- NOTE | 2025-02-15 07:59 | ED.GENMED ---
History of Present Illness
<ALEX Umana - Last Filed: 02/15/25 14:04>
General
Chief Complaint: Abdominal Pain
Source: patient
Exam Limitations: none
Time Seen by Provider: 02/15/25 07:47
Nursing documentation reviewed up to this point in time: agreed with
History of Present Illness
History of Present Illness:
Patient is a 34-year-old female history of marijuana use and hyperemesis cannabinoid syndrome presents for nausea and vomiting that started this morning. Patient does feel that this is related to her marijuana use. Patient last took marijuana
yesterday. Patient has been here multiple times in the past last was here December 08. Patient did require admission for intractable nausea and vomiting.
Patient denies any other sick contacts denies any fever/chills.
Past History
<ALEX Umana - Last Filed: 02/15/25 14:04>
Past History
ED Past Medical History: Psychiatric (Anxiety, marijuana dependence) and Other (Cannabis hyperemesis syndrome, obesity, migraines)
ED Past Surgical History: None
Social History
Tobacco: Smoker
Alcohol: Former
Drug: Marijuana
Personal: Single
Living: with family
Employment: Employed
Family History
Family History: Other
Phy Exam
<ALEX Umana - Last Filed: 02/15/25 14:04>
General Physical Exam
General Presentation: no apparent distress
General age: appears stated age
General Skin: warm and dry
General Habitus: normal
General Mental: alert
General Hydration: dry mucous membranes
Cardiovascular Exam
Cardiovascular Exam: regular rate/rhythm, no murmur and normal peripheral pulses
Pulmonary Exam
Pulmonary Exam: lungs clear and no respiratory distress
Gastrointestinal Exam
Gastrointestinal Exam: non tender and soft
Neurological Exam
Neurological Exam: alert and oriented x3
Musculoskeletal Exam
Musculoskeletal Exam: full ROM
Skin Exam
Skin Exam: normal color and warm/dry
Psychiatric Exam
Psychiatric Exam: normal mood/affect and anxious
Course
<ALEX Umana - Last Filed: 02/15/25 14:04>
Orders/Labs/Results
Orders:
Orders
02/15/25 08:00
Haloperidol Lactate [Haldol] 1 mg IM NOW STA
Lorazepam [Ativan] 1 mg IV NOW STA
02/15/25 08:02
Test Result ONCE
02/15/25 08:03
IV Insert/Care/Rem.- Treatment PRN
0.9% Sodium Chloride 1000 ml [Nss] 1,000 ml IV BOLUS
02/15/25 08:23
Complete Blood Count/With Diff Urgent
Comprehensive Metabolic Panel Urgent
HCG, Serum Qualitative Screen Urgent
02/15/25 08:28
Electrocardiogram (*1) Stat
Reason for Study: Other
Other Reason for Exam: chest pain
Cardiac Monitoring- Treatment ONCE
EKG- Treatment ONCE
02/15/25 10:16
Metoclopramide [Reglan] 10 mg IV NOW STA
02/15/25 10:19
0.9% Sodium Chloride 1000 ml [Nss] 1,000 ml IV BOLUS
Diphenhydramine [Benadryl] 25 mg IV NOW STA
02/15/25 11:49
Drug Screen, Urine [Urine Drug Abuse Screen] Urgent
Date Specimen was Collected: 02/15/25
Time Specimen was Collected: 11:25
Fentanyl, Urine Urgent
Urinalysis Reflex To Culture Urgent
Date Specimen was Collected: 02/15/25
Time Specimen was Collected: 11:26
Urine Microscopic Reflex Cult Urgent
Abnormal Lab Results
02/15/25 02/15/25
08:23 11:49
WBC 13.5 H 10^3/uL
(4.8-10.8)
MPV 10.8 H fL
(7.4-10.4)
Abs Immat Gran (auto) 0.1 H 10^3/uL
(0-0.05)
Absolute Neuts (auto) 12.0 H 10^3/uL
(1.4-6.5)
Absolute Lymphs (auto) 1.1 L 10^3/uL
(1.2-3.4)
Neutrophils % 89.1 H %
(42.2-75.2)
Lymphocytes % 7.9 L %
(20.5-51.1)
Carbon Dioxide 18 L mmol/L
(22-30)
Glucose 225 H mg/dl
(70-99)
Urine Ketones 3+ A
(Negative)
Urine Bacteria (Reflex) Few A
(Negative)
Urine Glucose 2+ A
(Negative)
Urine Albumin (Reflex) 1+ A
(Neg - Trace)
U Benzodiazepines Scrn Positive H
(Negative)
U Marijuana (THC) Screen Positive H
(Negative)
02/15/25 08:23
02/15/25 08:23
Vital Signs
Initial and Last Documented VS:
Initial Vital Signs
Pulse Resp BP Pulse Ox
68 18 172/102 97
02/15/25 07:39 02/15/25 07:39 02/15/25 07:39 02/15/25 07:39
Last Documented Vital Signs
Temp Pulse Resp BP Pulse Ox
98.1 F 52 24 164/79 99
02/15/25 10:29 02/15/25 11:30 02/15/25 11:30 02/15/25 11:15 02/15/25 11:30
Affiliate Manager consulted with Physician
Affiliate Manager consulted with physician?: Yes
Name of Physician Consulted: james
<Flynn Banks, DO - Last Filed: 02/15/25 11:32>
Orders/Labs/Results
Orders:
Orders
02/15/25 08:00
Haloperidol Lactate [Haldol] 1 mg IM NOW STA
Lorazepam [Ativan] 1 mg IV NOW STA
02/15/25 08:02
Test Result ONCE
02/15/25 08:03
IV Insert/Care/Rem.- Treatment PRN
0.9% Sodium Chloride 1000 ml [Nss] 1,000 ml IV BOLUS
02/15/25 08:23
Complete Blood Count/With Diff Urgent
Comprehensive Metabolic Panel Urgent
HCG, Serum Qualitative Screen Urgent
02/15/25 08:28
Electrocardiogram (*1) Stat
Reason for Study: Other
Other Reason for Exam: chest pain
Cardiac Monitoring- Treatment ONCE
EKG- Treatment ONCE
02/15/25 10:16
Metoclopramide [Reglan] 10 mg IV NOW STA
02/15/25 10:19
0.9% Sodium Chloride 1000 ml [Nss] 1,000 ml IV BOLUS
Diphenhydramine [Benadryl] 25 mg IV NOW STA
02/15/25 11:49
Drug Screen, Urine [Urine Drug Abuse Screen] Urgent
Date Specimen was Collected: 02/15/25
Time Specimen was Collected: 11:25
Fentanyl, Urine Urgent
Urinalysis Reflex To Culture Urgent
Date Specimen was Collected: 02/15/25
Time Specimen was Collected: 11:26
Urine Microscopic Reflex Cult Urgent
Abnormal Lab Results
02/15/25 02/15/25
08:23 11:49
WBC 13.5 H 10^3/uL
(4.8-10.8)
MPV 10.8 H fL
(7.4-10.4)
Abs Immat Gran (auto) 0.1 H 10^3/uL
(0-0.05)
Absolute Neuts (auto) 12.0 H 10^3/uL
(1.4-6.5)
Absolute Lymphs (auto) 1.1 L 10^3/uL
(1.2-3.4)
Neutrophils % 89.1 H %
(42.2-75.2)
Lymphocytes % 7.9 L %
(20.5-51.1)
Carbon Dioxide 18 L mmol/L
(22-30)
Glucose 225 H mg/dl
(70-99)
Urine Ketones 3+ A
(Negative)
Urine Bacteria (Reflex) Few A
(Negative)
Urine Glucose 2+ A
(Negative)
Urine Albumin (Reflex) 1+ A
(Neg - Trace)
U Benzodiazepines Scrn Positive H
(Negative)
U Marijuana (THC) Screen Positive H
(Negative)
02/15/25 08:23
02/15/25 08:23
Vital Signs
Initial and Last Documented VS:
Initial Vital Signs
Pulse Resp BP Pulse Ox
68 18 172/102 97
02/15/25 07:39 02/15/25 07:39 02/15/25 07:39 02/15/25 07:39
Last Documented Vital Signs
Temp Pulse Resp BP Pulse Ox
98.1 F 52 24 164/79 99
02/15/25 10:29 02/15/25 11:30 02/15/25 11:30 02/15/25 11:15 02/15/25 11:30
<ALEX Umana - Last Filed: 02/15/25 14:04>
MDM/Problems Addressed
Differential Diagnosis Includes:
Not limited to intractable vomiting, marijuana induced hyperemesis, dehydration, electrolyte abnormality
MDM/Problems Addressed:
Patient is a 34-year-old female with history of marijuana use last used yesterday. History of cannabis induced hyperemesis. Patient has previous multiple admissions for this as well. Patient presents with symptoms consistent with this. She does
agree. She presents with multiple episodes of vomiting here in the ER. She was medicated with Haldol Ativan Reglan Benadryl fluids still persist with vomiting. Will require admission for intractable vomiting
<ALEX Umana - Last Filed: 02/15/25 14:04>
*Pulse Oximetry
SaO2: 97
Oxygen Mode of Delivery: Room air
Patient hypoxic: no
*Critical Care Note
Total Time (30-74mins, 75-104mins- exclusive of procedures): Not Applicable
Data Reviewed
Review of Other/Old Records Reveals: Labs and Discharge Summary
Source: patient
ED Attending Note
<ALEX Umana - Last Filed: 02/15/25 14:04>
-
Portions of this chart may have been created with voice recognition software.� Occasional wrong word or��sound alike� substitutions may have occurred due to the inherent limitations of voice recognition software.
<Flynn Banks DO - Last Filed: 02/15/25 11:32>
ED Attending Note
Patient seen and examined by attending physician: Yes
I performed the substantive portion of visit, reviewed & personally made and approve the management plan that is documented in note by myself or OMAIRA.: Yes
ED Attending Note:
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
Discharge Plan
Departure
Patient Disposition: Admit
Date of Disposition: 02/15/25
Time of Disposition: 13:02
Admit to: Med/Surg
Admit to doctor: hospitalist
Presentation/result/management discussed w/ accepting MD/DO: Hospitalist
Patient with high blood pressure during this ER visit?: Yes
Condition: Fair
Discharge Problem:
Cannabis hyperemesis syndrome concurrent with and due to cannabis dependence
Prescriptions:
No Action
gabapentin 300 mg Capsule
300 mg PO TID
ondansetron HCl 4 mg tablet
4 mg PO TID PRN (Reason: nausea and vomiting) Qty: 10 0RF
Referrals:
UNKNOWN - PT DOES,NOT KNOW [Family Provider]
Interventions
Interventions:
*Risk Screen - Suicide Last Done: 02/15/25 07:39
*General Assessment Last Done: 02/15/25 07:39
*Neglect/Abuse Screening Last Done: 02/15/25 07:39
*ED COVID-19 Vaccine History Last Done: 02/15/25 11:43
UZ-[id number] Assessment Last Done: 02/15/25 11:41
Discharge Date and Time
Print Language: EMIRATI
[2025-02-15] MEDS: HALDOL 1 MG IM (08:12)
[2025-02-15] MEDS: ATIVAN 1 MG IV (08:15)
[2025-02-15] MEDS: NSS 1000 IV ×2 (08:16→11:30)
[2025-02-15 08:30] LABS: Hematocrit 41.3 % (37.0-47.0); Hemoglobin 14.8 g/dL (12.0-16.0); Mean Corp Hgb Conc. 35.8 g/dL (33.0-37.0); Mean Corpuscular Volume 84.6 fL (81.0-99.0); Nucleated Red Blood Cells % 0 %; Platelet Count 273 10^3/uL (130-400); Red Cell Dist. Width 12.6 % (11.5-14.5)
[2025-02-15 08:42] LABS: HCG, Serum Qualitative Screen Negative
[2025-02-15 08:51] LABS: ALT (SGPT) 24 U/L (0-35); AST (SGOT) 22 U/L (14-36); Albumin 4.9 g/dl (3.5-5.0); Alkaline Phosphatase 72 U/L (38-126); Blood Urea Nitrogen 14 mg/dl (7-17); Calcium 10.2 mg/dl (8.4-10.2); Carbon Dioxide 18 mmol/L (22-30); Chloride 107 mmol/L (98-107); Estimated Creatinine Clearance > 125 ml/min; Glucose 225 mg/dl (70-99); Potassium 4.0 mmol/L (3.5-5.1); Sodium 138 mmol/L (135-145); Total Protein 8.1 g/dl (6.3-8.2); eGFR > 60.00
[2025-02-15] MEDS: BENADRYL 25 MG IV (11:27)
[2025-02-15] MEDS: REGLAN 10 MG IV (11:31)
[2025-02-15 12:08] LABS: Urine Character Clear (Clear)
[2025-02-15 12:16] LABS: Urine Red Blood Cell 0-2 /HPF (0-2); Urine Squamous Cell 16-20 /LPF (Few)
--- NOTE | 2025-02-15 14:04 | HPS.HSE ---
Addendum entered and electronically signed by Andrés Munguia MD 02/15/25 15:59:
Patient had mild blood-tinged secretions after she vomited a few times likely Cynthia-Manjarrez
Discontinued Lovenox
Will do PPI now and daily
Watch
Await x-ray of the abdomen
Addendum entered and electronically signed by Andrés Munguia MD 02/15/25 15:16:
I saw and examined the patient.
The INVESTIGATIVE AGENT or PA's note was reviewed and I agree with the note.
Comment: See changes in my documentation
34-year-old female with vomiting
Patient is actively vomiting and feels miserable
Cardiovascular system S1-S2 appreciated
Chest clear to auscultation
Abdomen with discomfort
EKG sinus rhythm with QTc 554
# Hyperemesis likely secondary to cannabis use needs to stop
Check head CT without contrast
X-ray of the abdomen to rule out obstruction
Symptomatic treatment with IV fluids n.p.o., antiemetics
# Anxiety/depression/panic disorder-does not seem to be on any medicines
# Chronic pain on gabapentin
# Hyperglycemia-check hemoglobin A1c
# Migraines
# GERD-add PPI with vomiting
# Obesity with a BMI of 37- Weight loss advised.
# Active smoker-cessation counseling
# DVT Prophylaxis-Lovenox
# Full code
Discussed with nursing
Part of this note was created using voice recognition system. Occasional wrong word or��sound alike� substitutions may have inadvertently occurred due to the inherent limitations of voice recognition software. If noted kindly bring it to my
attention for correction.
Original Note:
Family Physician
-
Family Physician: NOT KNOW UNKNOWN - PT DOES
Chief Complaint
-
intractable nausea and vomiting
History of Present Illness
Patient is a 34-year-old female with past medical history significant for anxiety/depression/panic disorder, GERD and chronic pain who presented to [facility] ED for evaluation of intractable nausea and vomiting. Patient has had previous admissions for
similar r/t hyperemesis cannabinoid syndrome. She reports vomiting that started this 2 days ago and has had some associated diarrhea. She states that symptoms are similar to previous episodes of hyperemesis cannabinoid syndrome and denies any reent
sick contact.
Medical History
Past Medical History
Past Medical History: Reports Other
Additional Past Medical History:
Anxiety/Depression/Panic Disorder
GERD
Chronic Pain
hyperemesis cannabinoid syndrome
Past Surgical History: Reports Other
Additional Past Surgical History:
[place] [facility]eth Extraction
Endoscopy 07/2022
Endoscopy 2012
Social History
Tobacco: Smoker (pack per day)
Alcohol: None
Drug: Marijuana
Living: With Family
Employment: Employed
Family History
Family History: Not pertinent
Allergies / Home Medications
Allergies reflects when Allergies were last updated in [facility].
Home Medications with original date entered in [facility]
Allergy/Medication List:
Allergies
Allergy/AdvReac Type Severity Reaction Status Date / Time
marijuana (cannabis) Allergy Nausea / Verified 12/06/24 15:37
Vomiting
Home Medications
gabapentin 300 mg capsule 300 mg PO TID Neurological Condition 12/06/24
Review of Systems
-
History Source: Patient
A 12 point ROS was completed and negative except as noted: Yes
Constitutional: Reports Chills; Denies Fever
EENT: Denies Sore Throat
Respiratory: Denies Cough
Cardiac: Denies Chest Pain
Abdomen/GI: Reports Abdominal Pain, Nausea, Vomiting and Diarrhea
: Denies Dysuria
Musculoskeletal: Denies Joint Pain or Joint Swelling
Neurological: Denies Numbness
Endocrine: Denies Temp Intolerance
Hematologic/Lymphatic: Denies Bruising
Psych: Denies Anxiety
Physical Exam
Vital Signs
Vital Signs
Temp Pulse Resp BP Pulse Ox
98.1 F 52 24 164/79 99
02/15/25 10:29 02/15/25 11:30 02/15/25 11:30 02/15/25 11:15 02/15/25 11:30
Physical Exam
General: Well Developed and Other (Retching )
HEENT: Anicteric, Moist mucous membranes and Atraumatic
Respiratory: Clear
Cardiac: S1/S2, Regular Rhythm and Tachycardia
GI: Soft, Non Distended and Tender
Musculoskeletal: No Clubbing, No Cyanosis and No Edema
Skin: IV/Catheter Site; No Jaundice
Neuro: Awake and AO x 3
Psych: Calm and Intact Judgment/Insight
Laboratory Results
-
02/15/25 08:23
02/15/25 08:23
Laboratory Results
Total Bilirubin 1.1 mg/dl (0.2-1.3) 02/15/25 08:23
AST 22 U/L (14-36) 02/15/25 08:23
ALT 24 U/L (0-35) 02/15/25 08:23
Alkaline Phosphatase 72 U/L (38-126) 02/15/25 08:23
Data Reviewed
-
Medical Tests (Nuc Med, Echo, EKG etc): Report Reviewed by me (EKG: NORMAL SINUS RHYTHM WITH SINUS ARRHYTHMIA)
Lab Data: Labs Reviewed by me (WBC 13.5, Neut 89.1, HCO3 18, glucose 225)
Impression/Plan
-
IMPRESSION/PLAN:
#intractable nausea and vomiting
#Hx hyperemesis cannabinoid syndrome
WBC 13.5, Neut 89.1, HCO3 18, glucose 225
EKG: NORMAL SINUS RHYTHM WITH SINUS ARRHYTHMIA
- Admit to med/surg
- Antiemetics
- start Protonix
- supportive care with IVF
- liquid diet advance as tolerated
#leukocytosis likely 2/2 stress response
WBC 13.5
- trend WBC
#nicotine dependence
- NicoDerm patch
- encourage cessation
#Anxiety/Depression/Panic Disorder
- encourage out patient psych evaluation for better treatment options in hopes to avoid marijuana use in future
#GERD
- start Protonix
#Chronic Pain
- continue gabapentin as tolerated
Code status: full code
DVT prophylaxis: Lovenox sq
[2025-02-15] MEDS: ZOFRAN 4 MG IV ×2 (15:21→21:48)
[2025-02-15] MEDS: PROTONIX IV 40 MG IV ×2 (16:44→21:49)
[2025-02-15] MEDS: NSS (PRESERVATIVE FREE) 10 ML IV ×2 (16:45→21:49)
[2025-02-15] MEDS: APRESOLINE 5 MG IV (16:45)
[2025-02-15] MEDS: TIGAN 200 MG IM (17:26)
--- NOTE | 2025-02-15 19:30 | PTCARENOTE ---
Pt received from ED. Pt oriented to room and call march.
[2025-02-15] MEDS: NEURONTIN 300 MG PO (21:48)
[2025-02-15] MEDS: LR 1000 IV (21:49)
[2025-02-16] VITALS (7 sets, daily range): BP systolic 130–192; BP diastolic 71–106
[2025-02-16] MEDS: HALDOL 1 MG IM (04:48)
[2025-02-16] MEDS: LR 1000 IV ×2 (06:42→16:22)
[2025-02-16 08:34] LABS: Hematocrit 37.7 % (37.0-47.0); Hemoglobin 13.0 g/dL (12.0-16.0); Mean Corp Hgb Conc. 34.5 g/dL (33.0-37.0); Mean Corpuscular Volume 86.5 fL (81.0-99.0); Platelet Count 230 10^3/uL (130-400); Red Cell Dist. Width 13.0 % (11.5-14.5)
[2025-02-16] MEDS: NICODERM TRANSDERMAL 14 MG TRANSDERM (09:00)
[2025-02-16] MEDS: NSS (PRESERVATIVE FREE) 10 ML IV ×2 (09:00→20:43)
[2025-02-16] MEDS: PROTONIX IV 40 MG IV ×2 (09:00→20:42)
[2025-02-16] MEDS: NEURONTIN 300 MG PO ×3 (09:00→20:43)
[2025-02-16 09:02] LABS: Glycohemoglobin (HgbA1c) 5.3 % (4.0-5.6)
[2025-02-16 09:45] LABS: Blood Urea Nitrogen 15 mg/dl (7-17); Calcium 9.3 mg/dl (8.4-10.2); Carbon Dioxide 21 mmol/L (22-30); Chloride 107 mmol/L (98-107); Estimated Creatinine Clearance > 125 ml/min; Glucose 94 mg/dl (70-99); Potassium 3.5 mmol/L (3.5-5.1); Sodium 138 mmol/L (135-145); eGFR > 60.00
[2025-02-16] MEDS: TYLENOL 650 MG PO (10:19)
--- NOTE | 2025-02-16 10:40 | PTCARENOTE ---
8/- Patient states she is having a panic attack. She is dyspneic at rest with forced labored respirations, but POX=98% on RA. EA=459, RR=20, Skin=warm/pink/dry. Patient forcing a repeated Strong Dry Cough. Patient is AAOX3 but anxious and
agitated. Therapeutic conversation, calming environment maintained. Physician ordered PRN anxiety medications and advised this RN to administer the meds as ordered and notify him when she's calmed. Will continue to monitor.
[2025-02-16] MEDS: VALIUM INJECTION 2 MG IV (10:57)
[2025-02-16] MEDS: ZOFRAN 4 MG IV (11:33)
--- NOTE | 2025-02-16 12:03 | W.PN.HOSP.TC ---
Today's Communication/Plan
-
see PN
Assessment / Plan
Assessment / Plan
34yo F with PMHx of anxiety, panic d/o, self-medicating with cannabis and recurrent admissions for cannabis-induced cyclic vomiting came with the same
A/P:
#Cannabis induced vomiting
#Anxiety with panic d/o
Zofran
Valium
Previosly recommended to have Lexapro, however not on any SSRI at this time
#leukocytosis
no fevers
suspect 2/2 vomiting and retching
Chest XR without pneumonia
No overt abdominal pain
Follow CBC off Abx
Abd XR without acute findings
#Cynthia Puja (streaks of blood during vomiting on admision)
PPI
off AC
Monitor
DVT ppx SCDs
Full code
I have spent at least 57min reviewing chart, test reuslts, communication with consultants and direct patient care
Anticipated Discharge: 24 - 48 hours
Subjective/Interval History
-
Date of Service: February 16, 2025
Objective Data
-
Labs:
Laboratory Results
02/16/25
08:23
WBC 19.1 H
Hgb 13.0
Hct 37.7
Plt Count 230
Sodium 138
Potassium 3.5
Chloride 107
Carbon Dioxide 21 L
BUN 15
Creatinine 0.7
Glucose 94
Calcium 9.3
Vital Signs:
Vital Signs
Temp Pulse Resp BP Pulse Ox
97.7 F 78 18 163/89 96
02/16/25 11:13 02/16/25 11:13 02/16/25 11:13 02/16/25 11:13 02/16/25 11:13
Review of Systems
-
History Source: Patient
All other systems: Reviewed and negative
Psych: Reports Anxious
Physical Exam
-
General: No Apparent Distress
Respiratory: Clear to Auscultation
Cardiac: Regular Rhythm
GI: Soft, Nontender and Nondistended
Neuro: Awake, Alert, Oriented and AO x 3
Psych: Anxious
[2025-02-16] MEDS: HALDOL 1 MG IV ×2 (14:08→21:04)
--- NOTE | 2025-02-16 14:15 | PTCARENOTE ---
QTC 452, monitoring on tele.
--- NOTE | 2025-02-16 14:32 | CM ---
tool crib manager reviewed patient's chart and met with patient and patient lives with sister in an apartment, 20+ steps to enter, patient reports that she is independent with adl's and ambulation, no dme, patient drives, home when stable.
Patient has no insurance OBS letter not required.
PCP: None
Pharmacy: [facility].
[2025-02-16] MEDS: APRESOLINE 5 MG IV (23:19)
[2025-02-17] VITALS (7 sets, daily range): BP systolic 147–183; BP diastolic 82–103
[2025-02-17] MEDS: VALIUM INJECTION 2 MG IV ×2 (01:59→15:27)
[2025-02-17 07:24] LABS: Hematocrit 36.3 % (37.0-47.0); Hemoglobin 12.5 g/dL (12.0-16.0); Mean Corp Hgb Conc. 34.4 g/dL (33.0-37.0); Mean Corpuscular Volume 87.3 fL (81.0-99.0); Nucleated Red Blood Cells % 0 %; Platelet Count 220 10^3/uL (130-400); Red Cell Dist. Width 12.9 % (11.5-14.5)
[2025-02-17 07:57] LABS: ALT (SGPT) 19 U/L (0-35); AST (SGOT) 25 U/L (14-36); Albumin 3.7 g/dl (3.5-5.0); Alkaline Phosphatase 50 U/L (38-126); Blood Urea Nitrogen 11 mg/dl (7-17); Calcium 8.3 mg/dl (8.4-10.2); Carbon Dioxide 25 mmol/L (22-30); Chloride 103 mmol/L (98-107); Estimated Creatinine Clearance > 125 ml/min; Glucose 107 mg/dl (70-99); Magnesium 1.7 mg/dl (1.6-2.3); Potassium 3.5 mmol/L (3.5-5.1); Sodium 134 mmol/L (135-145); Total Protein 6.2 g/dl (6.3-8.2); eGFR > 60.00
[2025-02-17 08:25] LABS: Reticulocyte Count 1.6 % (0.4-2.8)
[2025-02-17] MEDS: NEURONTIN 300 MG PO (08:30)
[2025-02-17] MEDS: NICODERM TRANSDERMAL 14 MG TRANSDERM (08:31)
[2025-02-17] MEDS: NSS (PRESERVATIVE FREE) 10 ML IV ×2 (08:32→20:13)
[2025-02-17] MEDS: PROTONIX IV 40 MG IV ×2 (08:32→20:13)
[2025-02-17] MEDS: LR 1000 IV (08:35)
[2025-02-17 08:47] LABS: LDH 222 U/L (120-246)
--- NOTE | 2025-02-17 10:31 | CM ---
Chart reviewed patient unable to eat, patient has switched to inpatient, [facility] has no insurance, [facility]
Plan; Home with sister when stable.
--- NOTE | 2025-02-17 11:30 | W.PN.HOSP.TC ---
Today's Communication/Plan
-
feeling better, asked for food
cont IVF
cont antiemetics
increase Neurontin to 600mg TID (home dose as per patient and helpful with anxiety)
check lipase
Assessment / Plan
Assessment / Plan
34yo F with PMHx of anxiety, panic d/o, self-medicating with cannabis and recurrent admissions for cannabis-induced cyclic vomiting came with the same
A/P:
#Cannabis induced vomiting
#Anxiety with panic d/o
Zofran
Valium
Previously recommended to have Lexapro, however not on any SSRI at this time
#leukocytosis
no fevers
resolving off Abx
suspect 2/2 vomiting and retching
Chest XR without pneumonia
No overt abdominal pain
Follow CBC off Abx
Abd XR without acute findings
#Cynthia Puja (streaks of blood during vomiting on admission)
no additional episodes
PPI
off AC
Monitor
#Indirect bilirubinemia
with normal LDH and retics - most likely Gilbers
monitor
DVT ppx SCDs
Full code
I have spent at least 51min reviewing chart, test results, communication with consultants and direct patient care
Anticipated Discharge: 24 - 48 hours
Subjective/Interval History
-
Date of Service: February 17, 2025
Objective Data
-
Labs:
Laboratory Results
02/17/25
06:27
WBC 11.6 H
Hgb 12.5
Hct 36.3 L
Plt Count 220
Sodium 134 L
Potassium 3.5
Chloride 103
Carbon Dioxide 25
BUN 11
Creatinine 0.6
Glucose 107 H
Calcium 8.3 L
Total Bilirubin 1.6 H
AST 25
ALT 19
Alkaline Phosphatase 50
Vital Signs:
Vital Signs
Temp Pulse Resp BP Pulse Ox
98.3 F 60 18 183/82 95
02/17/25 11:05 02/17/25 11:05 02/17/25 11:05 02/17/25 11:05 02/17/25 11:05
I&O
02/16/25 02/17/25 02/18/25
06:59 06:59 06:59
Intake Total 1440 / 1440
Balance 1440 / 1440
Review of Systems
-
History Source: Patient
All other systems: Reviewed and negative
Abdomen/GI: Reports Nausea
Physical Exam
-
General: No Apparent Distress
Cardiac: Regular Rhythm
GI: Soft, Nontender and Nondistended
Neuro: Awake, Alert, Oriented and AO x 3
Psych: Calm and Anxious
[2025-02-17 12:07] LABS: Lipase 81 U/L (23-300)
[2025-02-17] MEDS: D5LR 1000 IV ×2 (12:13→22:32)
[2025-02-17] MEDS: HALDOL 1 MG IV (12:13)
[2025-02-17] MEDS: NEURONTIN 600 MG PO ×2 (15:25→22:33)
[2025-02-17] MEDS: TYLENOL 650 MG PO (20:13)
[2025-02-17] MEDS: APRESOLINE 5 MG IV (20:17)
[2025-02-18] MEDS: HALDOL 1 MG IV ×2 (01:37→08:01)
[2025-02-18 02:56] VITALS: BP 165/104
[2025-02-18] MEDS: APRESOLINE 5 MG IV (03:38)
[2025-02-18 07:00] VITALS: BP 144/86
[2025-02-18] MEDS: NEURONTIN 600 MG PO (07:55)
[2025-02-18] MEDS: NSS (PRESERVATIVE FREE) 10 ML IV (07:57)
[2025-02-18] MEDS: NICODERM TRANSDERMAL 14 MG TRANSDERM (07:58)
[2025-02-18] MEDS: PROTONIX IV 40 MG IV (07:58)
[2025-02-18 09:38] LABS: Hematocrit 38.5 % (37.0-47.0); Hemoglobin 13.5 g/dL (12.0-16.0); Mean Corp Hgb Conc. 35.1 g/dL (33.0-37.0); Mean Corpuscular Volume 85.6 fL (81.0-99.0); Nucleated Red Blood Cells % 0 %; Platelet Count 228 10^3/uL (130-400); Red Cell Dist. Width 12.6 % (11.5-14.5)
[2025-02-18] MEDS: PROCARDIA XL (EXTENDED RELEASE) 60 MG PO (09:58)
--- NOTE | 2025-02-18 10:59 | W.PN.HOSP.TC ---
Today's Communication/Plan
-
dc
Assessment / Plan
Assessment / Plan
34yo F with PMHx of anxiety, panic d/o, self-medicating with cannabis and recurrent admissions for cannabis-induced cyclic vomiting came with the same, improved and able to tolerate food. No vomiting for 24h before d/c. Patient cough most likely 2/2
episodes of previous vomiting with throat irritation since chest XR with no radiographic evidence of acute cardiopulmonary abnormality. Started on nifedipine for HTN.
A/P:
#Cannabis induced vomiting
#Anxiety with panic d/o
Zofran
Valium
Previously recommended to have Lexapro, however not on any SSRI at this time, was started on Neurontin 600mg TID - verified with [facility]. Rx sent since patient ran out of meds
#leukocytosis
no fevers
resolving off Abx
suspect 2/2 vomiting and retching
Chest XR without pneumonia
No overt abdominal pain
Follow CBC off Abx
Abd XR without acute findings
#Cynthia Puja (streaks of blood during vomiting on admission)
no additional episodes
PPI
off AC
Monitor
#Hypokalemia
2/2 vomiting
replete
#Indirect bilirubinemia
with normal LDH and retics - most likely Gilbers
monitor
#Essential HTN
start Nifedipine
DVT ppx SCDs
Full code
I have spent at least 36min reviewing chart, test results, communication with consultants and direct patient care
Anticipated Discharge: Today
Subjective/Interval History
-
Date of Service: February 18, 2025
Objective Data
-
Labs:
Laboratory Results
02/18/25
08:27
WBC 11.1 H
Hgb 13.5
Hct 38.5
Plt Count 228
Sodium Pending
Potassium Pending
Chloride Pending
Carbon Dioxide Pending
BUN Pending
Creatinine Pending
Glucose Pending
Calcium Pending
Total Bilirubin Pending
AST Pending
ALT Pending
Alkaline Phosphatase Pending
Vital Signs:
Vital Signs
Temp Pulse Resp BP Pulse Ox
98.5 F 66 16 144/86 96
02/18/25 07:00 02/18/25 07:00 02/18/25 07:00 02/18/25 07:00 02/18/25 07:00
I&O
02/17/25 02/18/25 02/19/25
06:59 06:59 06:59
Intake Total 1440 / 1440 1440 / 1440
Balance 1440 / 1440 1440 / 1440
Review of Systems
-
History Source: Patient
All other systems: Reviewed and negative
Abdomen/GI: Reports Nausea; Denies Vomiting
Physical Exam
-
General: No Apparent Distress
Respiratory: Clear to Auscultation
Cardiac: Regular Rhythm
GI: Soft, Nontender and Nondistended
Neuro: Awake, Alert, Oriented and AO x 3
Psych: Calm
[2025-02-18 11:00] VITALS: BP 153/96
[2025-02-18] MEDS: D5LR IV (11:25)
[2025-02-18 11:31] LABS: ALT (SGPT) 23 U/L (0-35); AST (SGOT) 24 U/L (14-36); Albumin 4.1 g/dl (3.5-5.0); Alkaline Phosphatase 52 U/L (38-126); Blood Urea Nitrogen 6 mg/dl (7-17); Calcium 8.7 mg/dl (8.4-10.2); Carbon Dioxide 24 mmol/L (22-30); Chloride 101 mmol/L (98-107); Estimated Creatinine Clearance > 125 ml/min; Glucose 127 mg/dl (70-99); Potassium 3.4 mmol/L (3.5-5.1); Sodium 134 mmol/L (135-145); Total Protein 6.8 g/dl (6.3-8.2); eGFR > 60.00
--- NOTE | 2025-02-18 11:31 | PN.CDI ---
CDI
- -
CDI:
Physician Documentation Request
Admit Date: 02/16/25 14:20
Dear Doctor Lianna
Please review the following and provide your response in the progress notes.
Clinical Indicators:
- Patient admit for hyperemesis cannabinoid syndrome
- No history of hypertension documented
- 5mg IV Hydralazine x 4
- Started on 60mg Nifedipine daily
Selected Entries
02/15/25
07:39 02/15/25
15:00 02/15/25
16:47
Blood pressure 172/102 183/76 187/77
02/16/25
08:27 02/16/25
23:24 02/17/25
20:17
Blood pressure 192/103 188/106 183/103
Please clarify which, if any of the following, is a more accurate diagnosis reflecting the type and acuity of the documented hypertension:
Essential primary hypertension
Hypertensive Urgency - B/P is severely elevated (systolic > or = to 180 or diastolic > or = to 110) but there is no associated organ damage. Symptoms may include: headache, shortness of breath, nosebleeds, severe anxiety. Treatment usually consists
of addition to or adjusting of oral medications and does not generally necessitate hospitalization.
Hypertensive Emergency - B/P is severely elevated (systolic > or = to 180 or diastolic > or = to 110) but can occur at lower levels especially in patients who did not previously have high B/P. There is usually associated organ damage. Symptoms may
include: memory loss, LOC, CVA, MS, angina, renal failure, pulmonary edema. Generally requires more aggressive treatment and a hospitalization.
Hypertensive Crisis - an acute elevation in B/P that can lead to organ damage. Broad term that is further differentiated to include urgency or emergency based on presence of organ damage.
Other (please specify)
Use of terms such as suspected, likely, concern for, or probable (associated with a specific diagnosis that is being evaluated, monitored, or treated as if it exists) are acceptable and can be coded in the inpatient setting, when documented at the
time of discharge.
Thank you,
Ilir Henderson RN
CDI Specialist
Please use your independent medical judgment in providing your response.
--- NOTE | 2025-02-18 11:46 | W.DCSUMMARY ---
Discharge Summary
Discharge Data
Date of Admission: 02/16/25
Date of Discharge: 02/18/25
-
Pending Results: No
Hospital Course
34yo F with PMHx of anxiety, panic d/o, self-medicating with cannabis and recurrent admissions for cannabis-induced cyclic vomiting came with the same, improved and able to tolerate food. No vomiting for 24h before d/c. Patient cough most likely 2/2
episodes of previous vomiting with throat irritation since chest XR with no radiographic evidence of acute cardiopulmonary abnormality. Started on nifedipine for HTN. Potassium repleted, medically stable for d/c home
I have spent at least 36min reviewing chart, test results, communication with consultants and direct patient care
Patient was managed for:
#Cannabis hyperemesis syndrome
#Anxiety with panic d/o
#leukocytosis
#Cynthia Puja (streaks of blood during vomiting on admission)
#Hypokalemia
#Indirect bilirubinemia
#Essential HTN
Discharge Plan
-
Patient Disposition: Home (Routine Discharge)
Discharge Diagnosis/Procedures: cyclic vomiting
Diet: Regular
Driving Restrictions: As prior to admission
Referrals:
UNKNOWN - PT DOES,NOT KNOW [Family Provider]
Prescriptions:
New
gabapentin 300 mg Capsule
600 mg PO TID Qty: 180 0RF
nifedipine 60 mg Tablet Extended Release
60 mg PO DAILY Qty: 30 0RF
Discontinued
gabapentin 300 mg Capsule
300 mg PO TID
Patient Comments:
no pharmacy fills
Discharge Orders:
Discharge Patient (As Directed); Ordered 02/18/25
Ordered By: Joshua Dsouza
Discharge Date and Time
Print Language: TAJIK
[2025-02-18] MEDS: KCL 160 MEQ IV (12:13)
--- NOTE | 2025-02-18 12:16 | CM ---
Home today, no needs.
Plan; Home no needs.
== END 2025-02-18 16:16 | disposition home or self-care (01) | DRG 896 ==
LOC: 4 WEST ACU 14:20
PROVIDERS: Nurse Practitioner; Nurse Practitioner Family; ADMITTING PHYSICIAN Hospitalist; ATTENDING PHYSICIAN Internal Medicine; EMERGENCY PHYSICIAN Emergency Medicine
DX: F12.288 Cannabis dependence with other cannabis-induced disorder (principal); K22.6 Gastro-esophageal laceration-hemorrhage syndrome; R17 Unspecified jaundice; R11.10 Vomiting, unspecified; D72.829 Elevated white blood cell count, unspecified; E87.6 Hypokalemia; I10 Essential (primary) hypertension; E66.9 Obesity, unspecified; Z68.37 Body mass index [BMI] 37.0-37.9, adult; K21.9 Gastro-esophageal reflux disease without esophagitis; F41.0 Panic disorder [episodic paroxysmal anxiety]; F32.A Depression, unspecified; R73.9 Hyperglycemia, unspecified; G43.909 Migraine, unspecified, not intractable, without status migrainosus; G89.29 Other chronic pain; F17.210 Nicotine dependence, cigarettes, uncomplicated
CPT/HCPCS: 70450; 71045; 71046; 74018; 80048; 80053; 80306; 80307; 81003; 81015; 82248; 83036; 83615; 83690; 83735; 84703; 85025; 85027; 85045; 93005; 96361; 96372; 96374; 96375; 99285

== ENCOUNTER 2025-04-27 13:01 | Inpatient (IN) | payer OTHER, SELFPAY ==
[2025-04-27] VITALS (11 sets, daily range): BP systolic 131–194; BP diastolic 62–113; BMI 38.3
--- NOTE | 2025-04-27 07:50 | ED.GENMED ---
History of Present Illness
<Pierre Gregg PA-C - Last Filed: 04/27/25 12:50>
General
Chief Complaint: Abdominal Symptoms
Time Seen by Provider: 04/27/25 07:45
History of Present Illness
History of Present Illness:
34-year-old female presents to the emergency department for evaluation of intractable vomiting and generalized abdominal pain that began this morning. She admits to continued marijuana use, has a known history of cannabinoid hyperemesis. Reports
chills but no fever. No hematemesis
Past History
<Pierre Gregg PA-C - Last Filed: 04/27/25 12:50>
Past History
ED Past Medical History: Psychiatric (Anxiety, marijuana dependence) and Other (Cannabis hyperemesis syndrome, obesity, migraines)
ED Past Surgical History: None
Social History
Tobacco: Smoker
Alcohol: Former
Drug: Marijuana
Personal: Single
Living: with family
Employment: Employed
Family History
Family History: Other
Review of Systems
<Pierre Gregg PA-C - Last Filed: 04/27/25 12:50>
Review of Systems
Allergies reviewed?: Yes
All Other Systems: ROS reviewed and negative except as documented in HPI and ROS
Phy Exam
<Pierre Gregg PA-C - Last Filed: 04/27/25 12:50>
Physical Exam
Physical Exam:
GEN: Writhing, retching
HEENT: Oral mucosa moist, no scleral icterus
Cardiac: Tachycardic, regular
Lung: No respiratory distress, no tachypnea
Abdomen: Soft, no rigidity, diffuse tenderness to all 4 quadrants
MSK: No gross deformity or injuries
Skin: Good color, no pallor or jaundice, no rashes
Neuro: AO x3, moves all extremities freely
Psych: Calm, cooperative
Course
<Pierre Gregg PA-C - Last Filed: 04/27/25 12:50>
Orders/Labs/Results
Orders:
Orders
04/27/25 07:49
Electrocardiogram (*1) Urgent
Reason for Study: QTc Monitoring
EKG- Treatment ONCE
0.9% Sodium Chloride 1000 ml [Nss] 1,000 ml IV BOLUS
Haloperidol Lactate [Haldol] 5 mg IV NOW STA
Test Result ONCE
04/27/25 08:29
Complete Blood Count/With Diff Urgent
Comprehensive Metabolic Panel Urgent
HCG, Serum Qualitative Screen Urgent
Lipase Urgent
04/27/25 09:29
Midazolam HCl [Versed] 1 mg IV NOW STA
04/27/25 10:31
0.9% Sodium Chloride 1000 ml [Nss] 1,000 ml IV BOLUS
04/27/25 12:31
Magnesium Urgent
04/27/25 12:33
Admit/Transfer Patient As Directed
Co-Sign Provider:
Level of Care: Inpatient admission
Assign to:: Medical/Surgical
Physician / Group: Tova Ruano
Diagnosis: Cannabis Hyperemesis syndrome
Reason for Hospitalization: Cannabis Hyperemesis syndrome
Expected length of stay greater than two midnights?: Yes
ELOS- Estimated Length of Stay in days: 2
I certify the patient meets the requirements for IP care: Yes
04/27/25 12:34
PRN Pain Medication Management As Directed
May give lesser potent ordered pain med per pt: Yes
preference::
Protocol:: Medication orders for pain may be administered in a
manner that supports deferring to patient preference
when the pt is:
- Requesting an ordered lesser potent pain medication.
Least to most potent pain medications are defined
as: acetaminophen < NSAID < tramadol < opioids
(morphine, oxycodone, hydromorphone).
- Requesting a lesser dose of the same medication IF
ORDERED.
- Requesting a less intrusive route of administration
if both routes are prescribed by the provider (PO <
IV).
04/27/25 12:38
Code Status As Directed
Resuscitation Status: Full Code
04/27/25 12:42
Ondansetron Injectable [Zofran] 4 mg IV NOW STA
04/27/25 12:51
COVID-19 Antigen Routine
Source: Nasal Swab
Influenza A+B Rapid Molecular Routine
ROMELIA Source: Nasal Swab
Specimen Description:
Abnormal Lab Results
04/27/25
08:29
WBC 15.9 H 10^3/uL
(4.8-10.8)
MCH 31.2 H pg
(27.0-31.0)
MPV 10.8 H fL
(7.4-10.4)
Abs Immat Gran (auto) 0.1 H 10^3/uL
(0-0.05)
Absolute Neuts (auto) 13.3 H 10^3/uL
(1.4-6.5)
Absolute Monos (auto) 0.8 H 10^3/uL
(0.1-0.6)
Neutrophils % 83.5 H %
(42.2-75.2)
Lymphocytes % 9.8 L %
(20.5-51.1)
Chloride 108 H mmol/L
(98-107)
Carbon Dioxide 19 L mmol/L
(22-30)
BUN 18 H mg/dl
(7-17)
Glucose 218 H mg/dl
(70-99)
04/27/25 08:29
04/27/25 08:29
Vital Signs
Initial and Last Documented VS:
Initial Vital Signs
Temp Pulse Resp BP Pulse Ox
98.8 F 72 18 177/113 94
04/27/25 07:38 04/27/25 07:38 04/27/25 07:38 04/27/25 07:38 04/27/25 07:38
Last Documented Vital Signs
Temp Pulse Resp BP Pulse Ox
98.8 F 58 17 148/66 96
04/27/25 07:38 04/27/25 09:45 04/27/25 09:45 04/27/25 09:00 04/27/25 09:00
<Brent Le MD - Last Filed: 04/27/25 12:59>
Orders/Labs/Results
Orders:
Orders
04/27/25 07:49
Electrocardiogram (*1) Urgent
Reason for Study: QTc Monitoring
EKG- Treatment ONCE
0.9% Sodium Chloride 1000 ml [Nss] 1,000 ml IV BOLUS
Haloperidol Lactate [Haldol] 5 mg IV NOW STA
Test Result ONCE
04/27/25 08:29
Complete Blood Count/With Diff Urgent
Comprehensive Metabolic Panel Urgent
HCG, Serum Qualitative Screen Urgent
Lipase Urgent
04/27/25 09:29
Midazolam HCl [Versed] 1 mg IV NOW STA
04/27/25 10:31
0.9% Sodium Chloride 1000 ml [Nss] 1,000 ml IV BOLUS
04/27/25 12:31
Magnesium Urgent
04/27/25 12:33
Admit/Transfer Patient As Directed
Co-Sign Provider:
Level of Care: Inpatient admission
Assign to:: Medical/Surgical
Physician / Group: Tova Ruano
Diagnosis: Cannabis Hyperemesis syndrome
Reason for Hospitalization: Cannabis Hyperemesis syndrome
Expected length of stay greater than two midnights?: Yes
ELOS- Estimated Length of Stay in days: 2
I certify the patient meets the requirements for IP care: Yes
04/27/25 12:34
PRN Pain Medication Management As Directed
May give lesser potent ordered pain med per pt: Yes
preference::
Protocol:: Medication orders for pain may be administered in a
manner that supports deferring to patient preference
when the pt is:
- Requesting an ordered lesser potent pain medication.
Least to most potent pain medications are defined
as: acetaminophen < NSAID < tramadol < opioids
(morphine, oxycodone, hydromorphone).
- Requesting a lesser dose of the same medication IF
ORDERED.
- Requesting a less intrusive route of administration
if both routes are prescribed by the provider (PO <
IV).
04/27/25 12:38
Code Status As Directed
Resuscitation Status: Full Code
04/27/25 12:42
Ondansetron Injectable [Zofran] 4 mg IV NOW STA
04/27/25 12:51
COVID-19 Antigen Routine
Source: Nasal Swab
Influenza A+B Rapid Molecular Routine
ROMELIA Source: Nasal Swab
Specimen Description:
Abnormal Lab Results
04/27/25
08:29
WBC 15.9 H 10^3/uL
(4.8-10.8)
MCH 31.2 H pg
(27.0-31.0)
MPV 10.8 H fL
(7.4-10.4)
Abs Immat Gran (auto) 0.1 H 10^3/uL
(0-0.05)
Absolute Neuts (auto) 13.3 H 10^3/uL
(1.4-6.5)
Absolute Monos (auto) 0.8 H 10^3/uL
(0.1-0.6)
Neutrophils % 83.5 H %
(42.2-75.2)
Lymphocytes % 9.8 L %
(20.5-51.1)
Chloride 108 H mmol/L
(98-107)
Carbon Dioxide 19 L mmol/L
(22-30)
BUN 18 H mg/dl
(7-17)
Glucose 218 H mg/dl
(70-99)
04/27/25 08:29
04/27/25 08:29
Vital Signs
Initial and Last Documented VS:
Initial Vital Signs
Temp Pulse Resp BP Pulse Ox
98.8 F 72 18 177/113 94
04/27/25 07:38 04/27/25 07:38 04/27/25 07:38 04/27/25 07:38 04/27/25 07:38
Last Documented Vital Signs
Temp Pulse Resp BP Pulse Ox
98.8 F 58 17 148/66 96
04/27/25 07:38 04/27/25 09:45 04/27/25 09:45 04/27/25 09:00 04/27/25 09:00
<Pierre Gregg PA-C - Last Filed: 04/27/25 12:50>
MDM/Problems Addressed
MDM/Problems Addressed:
Patient with continued vomiting despite multiple rounds of haloperidol and benzodiazepines, no imaging needed at this time given likelihood of cannabinoid hyperemesis, will admit for further management
<Pierre Gregg PA-C - Last Filed: 04/27/25 12:50>
*Pulse Oximetry
SaO2: 94
Oxygen Mode of Delivery: Room air
Patient hypoxic: no
*Critical Care Note
Total Time (30-74mins, 75-104mins- exclusive of procedures): Not Applicable
<Pierre Gregg PA-C - Last Filed: 04/27/25 12:50>
Update Note
Update Note:
04/27/2025 0930 AM: Patient reassessed, states symptoms are improved, no further retching however still with severe nausea. Will give small dose of IV midazolam due to history of anxiety and panic disorder associated with her cannabinoid hyperemesis
ED Attending Note
<Pierre Gregg PA-C - Last Filed: 04/27/25 12:50>
-
Portions of this chart may have been created with voice recognition software.� Occasional wrong word or��sound alike� substitutions may have occurred due to the inherent limitations of voice recognition software.
<Brent Le MD - Last Filed: 04/27/25 12:59>
ED Attending Note
Patient seen and examined by attending physician: Yes
ED Attending Note:
Patient presents to ED secondary to persistent nausea and vomiting, along with lower abdominal pain, starting this morning. Abdominal pain described as sharp, nonradiating, without any alleviating or exacerbating factors. Patient states that she
has had number of similar symptoms in the past secondary to use of marijuana. Patient does admit to having used marijuana this morning, prior to onset of her symptoms. Denies fever or chills. Denies trauma. Denies recent change in medications or
diet. Denies sick contact.
Physical Exam
General: mild distress, not acutely ill. afebrile
Head: nc/at. eomi
Neck: supple. no meningeal signs.
Heart: s1/s2 regular rate and rhythm
Lungs: no acute respiratory distress. clear bilaterally
Abdomen: normal bowel sounds. no distention. mild diffuse tenderness to palpation
Neuro: alert and oriented x 3. no focal neurological deficits
Skin: no rash
Psychiatric: well kept. interactive and cooperative
Extremities: no edema. no calf tenderness.
History and exam consistent with intractable vomiting, likely secondary to continued use of marijuana. Unfortunately, despite administration of multiple antiemetics, patient remains symptomatic. As such, patient will be admitted for further
evaluation and treatment.
Discharge Plan
Departure
Patient Disposition: Admit
Date of Disposition: 04/27/25
Time of Disposition: 12:04
Admit to: Med/Surg
Presentation/result/management discussed w/ accepting MD/DO: Hospitalist
Discharge Problem:
Cannabinoid hyperemesis syndrome, Intractable vomiting
Prescriptions:
No Action
gabapentin 300 mg Capsule
600 mg PO TID Qty: 180 0RF
nifedipine 60 mg Tablet Extended Release
60 mg PO DAILY Qty: 30 0RF
Referrals:
Hector Ladd MD [Family Provider, Family Practice]
Interventions
Interventions:
*Risk Screen - Suicide Last Done: 04/27/25 07:38
*General Assessment Last Done: 04/27/25 07:38
*Neglect/Abuse Screening Last Done: 04/27/25 07:38
*ED- Fall Risk Assessment Last Done: 04/27/25 08:15
*ED COVID-19 Vaccine History Last Done: 04/27/25 08:15
*ED Influenza Vaccine History Last Done: 04/27/25 08:15
XY-Enblqp-Aisjcrryos Assessment Last Done: 04/27/25 08:15
Discharge Date and Time
Print Language: CZECH
[2025-04-27] MEDS: HALDOL 5 MG IV (08:20)
[2025-04-27] MEDS: NSS 1000 IV ×2 (08:27→10:37)
[2025-04-27 08:37] LABS: Hematocrit 38.4 % (37.0-47.0); Hemoglobin 13.8 g/dL (12.0-16.0); Mean Corp Hgb Conc. 35.9 g/dL (33.0-37.0); Mean Corpuscular Volume 86.9 fL (81.0-99.0); Nucleated Red Blood Cells % 0 %; Platelet Count 279 10^3/uL (130-400); Red Cell Dist. Width 12.1 % (11.5-14.5)
[2025-04-27 09:03] LABS: HCG, Serum Qualitative Screen Negative
[2025-04-27 09:09] LABS: ALT (SGPT) 24 U/L (0-35); AST (SGOT) 23 U/L (14-36); Albumin 4.6 g/dl (3.5-5.0); Alkaline Phosphatase 61 U/L (38-126); Blood Urea Nitrogen 18 mg/dl (7-17); Calcium 9.7 mg/dl (8.4-10.2); Carbon Dioxide 19 mmol/L (22-30); Chloride 108 mmol/L (98-107); Estimated Creatinine Clearance > 125 ml/min; Glucose 218 mg/dl (70-99); Potassium 3.8 mmol/L (3.5-5.1); Sodium 139 mmol/L (135-145); Total Protein 7.3 g/dl (6.3-8.2); eGFR > 60.00
[2025-04-27] MEDS: VERSED 1 MG IV (09:45)
[2025-04-27 10:35] LABS: Lipase 167 U/L (23-300)
--- NOTE | 2025-04-27 12:08 | W.PN.UPDATE ---
Update Note
Progress Note Update
This is an addendum to H&P written by resident physician Dr. Manuela Reeder
I saw and examined the patient.
The resident physician's note was reviewed and I agree with the note.
Comment:
Ms. Romelia Thomas is a 34 yo woman with hx anxiety, cannabis use, prior admissions for cannabis-induced cyclic vomiting (most recently 02/2025) presents to the ER for nausea/vomiting. Patient reports this episode feels similar to prior. She is
passing gas.
Triage VS: T 98.8, P 72, RR 18, BP 177/113, SpO2 94%
BP --> 148/66
On exam patient is nauseated, vomited at end of exam. Lungs clear; CV: S1, S2, RRR; LE without swelling. Patient was curled in position; refused abdominal exam. Abdomen reported as soft, tender in 4 quadrants without rebound/guarding on ER
physician's note.
LABS: WBC 15.9, Hg 13.8, PLT 279, Na 139, K+ 3.8, CO2 19, BUN 18, Cr 0.8, Glucose 218, liver enzymes WNL,
HCG negative
MAR: IV Haldol, Versed, NS x 2
Cannabis Hyperemesis Cyclic Vomiting
-admit to med/surg
-check flu and covid
-s/p Haldol and Versed in ER, remains nauseated
-IVF, LR + 20mEq K
-IV Zofran PRN; IV Compazine 2nd line (QTc OK)
-patient reports having tried Capsaicin cream in past and didn't work, doesn't want to try again
-monitor electrolytes
Reactive Leukocytosis secondary to above
-monitor without antibiotics
Hypertensive Urgency in setting of above
-BP improved with symptomatic treatment in ER
-Nifedipine prescribed last admission, patient not currently taking
Anxiety/Depression
-patient is not on an SSRI
Neuropathy - [employer] Gabapentin
Hyperglycemia
-reactive, recent A1c WNL
DVT PPx Lovenox
FULL CODE
--- NOTE | 2025-04-27 12:42 | HPS.HSE ---
Family Physician
-
Family Physician: Hector Ladd
Chief Complaint
-
Intractable vomiting.
History of Present Illness
34-year-old female with past medical history significant for anxiety/depression, migraines, GERD, recent admission to the hospital for cannabis hyperemesis syndrome presents to the ER for evaluation of abdominal pain, distention, nausea and
vomiting. Patient states that all her symptoms started at the same time about 48 hours ago, her emesis is nonbilious and nonbloody, her last bowel movement was yesterday in the a.m., and currently she is passing gas. She has not eaten any food in
the last 24 hours, and states to have smoked about 3 joints of cannabis OTC just prior to the symptoms started. She states to have some associated fever and chills, denies having hematuria dysuria frequency, melena or hematochezia, syncope or near
syncopal episodes. She denies having chest pain and shortness of breath.
Upon arrival to the ER, she is found to be hypertensive with a blood pressure of 177/113, bradycardic with a heart rate of 46, tachypneic with a respiratory rate of 23, and she was afebrile. In the ER she received 2 boluses of IV fluids, 5 mg of
Haldol and 1 mg of Versed, and Zofran.
Medical History
Past Medical History
Past Medical History: Reports Other (Cynthia-Manjarrez tear, GERD, cannabis use disorder, cannabis hyperemesis syndrome, migraine, anxiety/depression.)
Past Surgical History: Reports Other ([place] Teeth Extraction,Endoscopy 2012)
Social History
Tobacco: Smoker (1 pack of cigarettes a day for the last 10 years)
Alcohol: None
Drug: Marijuana (Cannabis use disorder)
Personal: Single
Living: With Family
Employment: Employed
Family History
Family History: Not pertinent
Allergies / Home Medications
Allergies reflects when Allergies were last updated in [facility].
Home Medications with original date entered in [facility]
Allergy/Medication List:
Allergies
Allergy/AdvReac Type Severity Reaction Status Date / Time
marijuana (cannabis) Allergy Hyperemesis Verified 04/27/25 07:37
Home Medications
gabapentin 300 mg capsule 600 mg (2 x 300 mg) PO TID #180 caps 02/18/25
nifedipine 60 mg tablet,extended release 60 mg PO DAILY #30 tabs 02/18/25
Review of Systems
-
History Source: Patient
Constitutional: Reports Fever, Fatigue and Chills
EENT: Reports No Symptoms
Respiratory: Reports No Symptoms
Cardiac: Reports No Symptoms
Abdomen/GI: Reports Abdominal Pain, Nausea and Vomiting
: Reports No Symptoms
Musculoskeletal: Reports No Symptoms
Skin: Reports No Symptoms
Neurological: Reports No Symptoms
Endocrine: Reports No Symptoms
Hematologic/Lymphatic: Reports No Symptoms
Psych: Reports No Symptoms
Physical Exam
Vital Signs
Vital Signs
Temp Pulse Resp BP Pulse Ox
98.8 F 58 17 148/66 96
04/27/25 07:38 04/27/25 09:45 04/27/25 09:45 04/27/25 09:00 04/27/25 09:00
Physical Exam
General: No Apparent Distress and Comfortable
HEENT: NormoCephalic, Anicteric and PERRLA; No Moist mucous membranes
Respiratory: Clear; No Wheezes, Rales, Rhonchi or Crackles
Cardiac: S1/S2 and Regular Rhythm; No Murmur, Rub or Gallop
GI: Soft, Non Tender, Non Distended, Normal Bowel Sounds and Other (Per ER, patient declined abdominal examination.)
Genito-urinary: Deferred by me
Musculoskeletal: No Clubbing, No Cyanosis and No Edema
Skin: Warm and Dry
Neuro: AO x 3 and No Motor Deficits
Psych: Anxious
Laboratory Results
-
10/15/25 08:29
04/27/25 08:
Laboratory Results
Total Bilirubin 1.0 mg/dl (0.2-1.3) 04/27/25 08:
AST 23 U/L (14-36) 04/27/25 08:
ALT 24 U/L (0-35) 04/27/25 08:
Alkaline Phosphatase 61 U/L (38-126) 04/27/25 08:
Lipase 167 U/L (23-300) 04/27/25 08:
Data Reviewed
-
Lab Data: Labs Reviewed by me, Discussed with Physician and Discussed with Patient
Impression/Plan
-
IMPRESSION: 34-year-old female with PMHx significant for anxiety/depression, migraines, GERD, recent admission to the hospital for cannabis hyperemesis syndrome presents to the ER for evaluation of abdominal pain, distention, nausea and vomiting.
She is being admitted to the hospital for cannabis hyperemesis syndrome.
PLAN:
# Cannabis hyperemesis syndrome-
History of smoking 3 joints of cannabis OTC just before the symptoms started.
Intractable emesis.
Hypertensive urgency, bradycardia, tachypnea, elevated leukocytosis-SIRS criteria met.
Likely secondary to cannabis hyperemesis syndrome. No sepsis.
Admit to MedSurg floor, initiate supportive care.
IV fluids -lactated Ringer, with potassium, Zofran, Compazine as needed.
Offered Capsaicin cream for abdominal pain to the patient, patient declined.
EKG-no QTc prolongation.
N.p.o. for now, advance diet as tolerated.
Check magnesium.
# Hypertensive urgency-
Likely secondary to cannabis hyperemesis syndrome
Blood pressure trending down
Unclear if patient is on nifedipine at home.
Will continue to follow blood pressures closely, add nifedipine if needed.
# Anxiety/depression-
Not on any home medication
# History of migraines
# BMI greater than 35,
# GERD-
Add Protonix as needed.
# Hyperglycemia-
Blood sugar-212
Recent hemoglobin A1c-5.3, less than 3 months ago.
# DVT prophylaxis-
Lovenox
# CODE STATUS-
Full code
[2025-04-27] MEDS: ZOFRAN 4 MG IV ×2 (13:25→20:13)
[2025-04-27 13:49] LABS: COVID-19 Antigen Negative (Negative)
[2025-04-27 13:51] LABS: Magnesium 1.9 mg/dl (1.6-2.3)
[2025-04-27] MEDS: KCL 1010 MEQ IV (17:16)
[2025-04-27] MEDS: LOVENOX 40 MG SC (17:17)
[2025-04-27] MEDS: NSS (PRESERVATIVE FREE) 10 ML IV (17:18)
[2025-04-27] MEDS: PROTONIX IV 40 MG IV (17:18)
[2025-04-27] MEDS: COMPAZINE 10 MG IV ×2 (17:22→23:32)
[2025-04-27] MEDS: NEURONTIN PO ×2 (17:27→22:41)
[2025-04-28] MEDS: KCL 1010 MEQ IV ×2 (03:30→17:40)
[2025-04-28] MEDS: ZOFRAN 4 MG IV ×3 (03:33→17:35)
[2025-04-28] MEDS: COMPAZINE 10 MG IV ×2 (05:43→15:14)
[2025-04-28 07:53] VITALS: BP 121/68
[2025-04-28] MEDS: NEURONTIN 600 MG PO ×2 (09:08→16:04)
[2025-04-28] MEDS: NICODERM TRANSDERMAL 14 MG TRANSDERM (09:09)
[2025-04-28 09:38] LABS: Hematocrit 42.0 % (37.0-47.0); Hemoglobin 14.6 g/dL (12.0-16.0); Mean Corp Hgb Conc. 34.8 g/dL (33.0-37.0); Mean Corpuscular Volume 87.3 fL (81.0-99.0); Platelet Count 286 10^3/uL (130-400); Red Cell Dist. Width 12.4 % (11.5-14.5)
--- NOTE | 2025-04-28 09:39 | W.PN.HOSP.TC ---
Today's Communication/Plan
-
c/w supportive care
IVF/PPI/Anti-nausea
Add PRN Hydralazine
Assessment / Plan
Assessment / Plan
Physical Exam
General: Well Developed, sleeping
HEENT: Anicteric, Moist mucous membranes and Atraumatic
Respiratory: Clear
Cardiac: S1/S2 and Murmur
GI: Soft, Non Distended and mildly Tender
Genito-urinary: No Garcia
Musculoskeletal: No Clubbing, No Cyanosis and No Edema
Skin: No Jaundice
Neuro: AO x 3, she followed commands
Psych: Calm and Intact Judgment/Insight
34 years old female presented with intractable nausea vomiting for 1 week duration
#Intractable nausea and vomiting, inability to tolerate oral intake
consistent with cannabis Hyperemesis Syndrome
recurrent problem requiring recurrent hospitalization
She continues to have N/V
c/w IV PRN Zofran & Compazine
IV PPI
Will do abdominal x ray if she agrees
Due to continued symptoms, Will do low dose Diazepam IV PRN to help
Continue supportive care with IV fluid and liquid diet as tolerated
-Continue symptom control with anti-emetics
-Afebrile
-Continue with PPI
- Consulted GI
# High BP, HTN urgency
could be underlying HTN
she was started on Nifedipine last admission but she is not on it now
will add PRN hydralazine
#Leukocytosis, likely stress reaction
Afebrile
-Continue to monitor
#Anxiety/Depression/Panic Disorder
c/w home medications
She does not have suicidal or homicidal ideation
#GERD
-Continue Protonix
#Chronic Pain
-Continue gabapentin when able to take oral pills.
DVT proph: SQ Heparin
Code Status: Full Code
Total discharge time spent to see the patient, examine the patient, review data and lab results, discuss discharge plan with patient and nursing staff around 55 minutes
Anticipated Discharge: 24 - 48 hours
Subjective/Interval History
-
Date of Service: April 28, 2025
She is resting in bed
No nausea at present
no chest pain
still with abdominal discomfort
Objective Data
-
Labs:
Laboratory Results
04/28/25
09:15
WBC 15.0 H
Hgb 14.6
Hct 42.0
Plt Count 286
Sodium Pending
Potassium Pending
Chloride Pending
Carbon Dioxide Pending
BUN Pending
Creatinine Pending
Glucose Pending
Calcium Pending
Vital Signs:
Vital Signs
Temp Pulse Resp BP Pulse Ox
98.9 F 55 16 121/68 95
04/28/25 07:53 04/28/25 07:53 04/28/25 07:53 04/28/25 07:53 04/28/25 07:53
I&O
04/27/25 04/28/25 04/29/25
06:59 06:59 06:59
Intake Total 0 / 0
Balance 0 / 0
[2025-04-28 09:59] LABS: Blood Urea Nitrogen 10 mg/dl (7-17); Calcium 9.5 mg/dl (8.4-10.2); Carbon Dioxide 23 mmol/L (22-30); Chloride 105 mmol/L (98-107); Estimated Creatinine Clearance > 125 ml/min; Glucose 127 mg/dl (70-99); Magnesium 2.0 mg/dl (1.6-2.3); Potassium 4.1 mmol/L (3.5-5.1); Sodium 135 mmol/L (135-145); eGFR > 60.00
[2025-04-28] MEDS: VALIUM INJECTION 2 MG IV (10:56)
--- NOTE | 2025-04-28 15:29 | CON.GI ---
Addendum entered and electronically signed by Juli Nj DO 04/28/25 16:48:
The patient was seen and examined by me independently in collaboration with the nurse practitioner.
Past medical history/social history/medications/allergies/family history reviewed.
Lab data and imaging data reviewed.
Romelia Thomas is a 34 y.o. female with cannabis hyperemesis admitted with persistent nausea and vomiting. She has had multiple hospital admissions for similiar symptoms. Reports only getting relief from hot showers. Previously, no improvement with
reglan or zofran, admits to good response to compazine. Not currently receiving any antiemetics. At time of evaluation, she is resting comfortably. She does admit to having an addiction problem with marijuana. She has quit but for only a short
period of time. Prior EGD x2 unremarkable aside from a small hiatal hernia, mild gastritis seen in 2012.
A/P
-Recommend compazine, EKG reviewed
-c/w PPI
-trial of capsaicin
-IVF, NPO until able to tolerate diet, then recommend low residue/low diet, small frequent meals (gastroparesis diet)
-Discussed at length that she needs complete cessation of marijuana-- can take up to 6 months to see improvement in sx as THC remains in adipose
-Recommend outpatient psych-- may benefit from TCA
-outpatient gastric emptying study previously recommended is somewhat unhelpful as THC can cause false positive result
Supportive care. No role for inpatient endoscopic procedure. GI will sign off, please call with questions.
Original Note:
Consultation
-
Date/Time Consultation Requested: 04/28/25 0700
Date/Time Consultation Performed: 04/28/25 1545
Requesting Provider: Georgi Cunningham MD
Performing Provider: ALEX Jackman, Ester Nj DO
Reason for Consultation: nausea/vomiting
Medical History
Chief Complaint / HPI
Chief Complaint: nausea/vomiting
History of Present Illness:
The patient is a 31-year-old female with a past medical history significant for severe anxiety, cyclic nausea and vomiting syndrome secondary to daily marijuana use with multiple prior admissions, fatty liver, chronic abdominal pain, who presents
for recurrent admission with intractable vomiting and abdominal pain. On admission pt admit to period off Cannibis but recurrent use. She states she is concerned for addition to use. She continued with vomiting today without much improvement on
current regiment. She was last admitted in February but last seen by GI in November.
Pt otherwise admits to severe upper abdominal pain requiring narcotics use. She otherwise denies odynophagia, dysphagia, GERD, diarrhea, constipation, blood or black in stools. On admission WBC 15,900 with stable hbg 13.8, Na 139, glucose 127
and normal LFT's and lipase. Abd imaging today with non obst pattern. No hx colonoscopy in past but EGD [facility] 2022 with normal esophagus, small HH normal duodenum no specimens collected.
Past Medical History
Past Medical History: GERD, Psychiatric (severe anxiety/depression) and Other (hx canabis hyperemesis syndrome, fatty liver, chronic abdominal pain)
Past Surgical History: None
Social History
Tobacco: Smoker (/2 PPD)
Alcohol: None
Drug: Marijuana (3x daily)
Living: With Family (sister )
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
Family History
Family History: Other (no family hx GI issues )
Allergies / Home Medications
Allergy/AdvReac Type Severity Reaction Status Date / Time
marijuana (cannabis) Allergy Hyperemesis Verified 04/27/25 07:37
�Medication �Instructions �Recorded
gabapentin 300 mg capsule 600 mg (2 x 300 mg) PO TID #180 02/18/25
caps
omeprazole 20 mg capsule,delayed 20 mg PO HS GERD 04/27/25
release
Review of Systems
-
History Source: Patient
Constitutional: Reports No Symptoms
EENT: Reports No Symptoms
Respiratory: Reports No Symptoms
Cardiac: Reports No Symptoms
Abdomen/GI: Reports Abdominal Pain, Nausea and Vomiting
: Reports No Symptoms
Musculoskeletal: Reports No Symptoms
Skin: Reports No Symptoms
Neurological: Reports Headache and Weakness
Endocrine: Reports No Symptoms
Hematologic/Lymphatic: Reports No Symptoms
Vital Signs
Temp Pulse Resp BP Pulse Ox
98.9 F 55 16 121/68 95
04/28/25 07:53 04/28/25 07:53 04/28/25 07:53 04/28/25 07:53 04/28/25 07:53
Physical Exam
Exam
General: Well Developed, Well Nourished and Other (some distress with nausea and vomiting and withdrawn laying in bet)
HEENT: Normocephalic and Anicteric
Respiratory: Clear
Cardiac: Regular Rhythm
GI: Soft, Non Distended and Tender (epigastric )
Musculoskeletal: No Clubbing and No Cyanosis
Skin: Warm and Dry
Neuro: Other (sleepy but arousable )
Psych: Calm
Results
WBC 15.0 10^3/uL (4.8-10.8) H 04/28/25 09:15
Hgb 14.6 g/dL (12.0-16.0) 04/28/25 09:15
Hct 42.0 % (37.0-47.0) 04/28/25 09:15
MCV 87.3 fL (81.0-99.0) 04/28/25 09:15
Plt Count 286 10^3/uL (130-400) 04/28/25 09:15
Absolute Neuts (auto) 13.3 10^3/uL (1.4-6.5) H 04/27/25 08:29
Sodium 135 mmol/L (135-145) 04/28/25 09:15
Potassium 4.1 mmol/L (3.5-5.1) 04/28/25 09:15
Chloride 105 mmol/L (98-107) 04/28/25 09:15
Carbon Dioxide 23 mmol/L (22-30) 04/28/25 09:15
BUN 10 mg/dl (7-17) 04/28/25 09:15
Creatinine 0.7 mg/dL (0.6-1.0) 04/28/25 09:15
Calcium 9.5 mg/dl (8.4-10.2) 04/28/25 09:15
Total Bilirubin 1.0 mg/dl (0.2-1.3) 04/27/25 08:29
AST 23 U/L (14-36) 04/27/25 08:29
ALT 24 U/L (0-35) 04/27/25 08:29
Alkaline Phosphatase 61 U/L (38-126) 04/27/25 08:29
Lipase 167 U/L (23-300) 04/27/25 08:29
Diagnostic Image Results:
04/28/25 abd film
Nonobstructive intestinal bowel gas pattern.
12/06/24 CT Abd/pelvis W Iv Cont
Limited evaluation of virtually completely empty intestinal tract as a result of lack of oral contrast, without intestinal obstruction or free air.
Unremarkable appendix.
Mild hepatomegaly.
Contracted gallbladder likely postprandial, food material seen within the stomach.
Prior GI Procedures:
EGD: [facility] 2022 with normal esophagus, small HH normal duodenum no specimens collected.
Colonoscopy: none
Assessment / Plan
-
The patient is a 31-year-old female with a past medical history significant for severe anxiety, cyclic nausea and vomiting syndrome secondary to daily marijuana use with multiple prior admissions, fatty liver, chronic abdominal pain, who presents
for recurrent admission with intractable vomiting and abdominal pain. On admission pt admit to period off Cannibis but recurrent use. She states she is concerned for addition to use. She continued with vomiting today without much improvement on
current regiment. She was last admitted in February but last seen by GI in November. 04/28 QTC 434
Problem list:
-intractable nausea/vomiting with abdominal pain
-chronic marijuana use with concern Cannibis hyperemesis with recurrent admission
-chronic abdominal pain
- anxiety/depression
-elevated FBS
-leukocytosis
other med problems:
-GERD
-chronic pain
fatty liver
Recommendations:
-Etiology of intractable nausea/vomiting likely secondary to cannabis hyperemesis syndrome due to restart of marijuana use and multifactorial
also noted hx elevated glucose but hbg A1C normal.
cont supportive care- pain control limit narcotics as able
will increased Protonix to BID
add Compazine with stable QTC
pt denies improvement with Reglan in past
add capsaicin cream QID
will repeat EKG in AM
-Reinforced she will need to stop marijuana use indefinitely- has quit in past
-OP follow up with hx fatty liver - LFT remain normal
t/c OP counseling as admits to concern for Cannibis addition and inability to stop
Total Time Spent with Patient (in minutes): 10
-
-
Thank you for consultation and allowing me to participate in the patient's care. Please call the satellite project site monitor GI physician during the after hours with any questions or concerns.
[2025-04-28] MEDS: MORPHINE SULFATE 2 MG IV ×2 (16:04→20:49)
--- NOTE | 2025-04-28 16:15 | CM ---
reservoir engineering manager reviewed patient's chart and patient states she lives with her sister in a multilevel apartment that has 20 steps to enter, patient reports she is independent with adl's and ambulation. Patient drives, home with sister when stable.
PCP: Dr Ladd
Pharmacy: [facility].
[2025-04-28] MEDS: LOVENOX 40 MG SC (17:34)
[2025-04-28] MEDS: NSS (PRESERVATIVE FREE) 10 ML IV (20:52)
[2025-04-28] MEDS: PROTONIX IV 40 MG IV (20:52)
[2025-04-28] MEDS: NEURONTIN PO (21:04)
[2025-04-28 23:41] VITALS: BP 169/84
[2025-04-29] MEDS: COMPAZINE 10 MG IV ×3 (00:36→23:30)
[2025-04-29] MEDS: ZOFRAN 4 MG IV ×3 (04:45→19:47)
[2025-04-29] MEDS: KCL 1010 MEQ IV (06:01)
[2025-04-29 06:25] LABS: Hematocrit 38.8 % (37.0-47.0); Hemoglobin 13.7 g/dL (12.0-16.0); Mean Corp Hgb Conc. 35.3 g/dL (33.0-37.0); Mean Corpuscular Volume 87.8 fL (81.0-99.0); Platelet Count 243 10^3/uL (130-400); Red Cell Dist. Width 12.1 % (11.5-14.5)
[2025-04-29 06:49] LABS: ALT (SGPT) 23 U/L (0-35); AST (SGOT) 21 U/L (14-36); Albumin 4.2 g/dl (3.5-5.0); Alkaline Phosphatase 51 U/L (38-126); Blood Urea Nitrogen 9 mg/dl (7-17); Calcium 8.8 mg/dl (8.4-10.2); Carbon Dioxide 24 mmol/L (22-30); Chloride 99 mmol/L (98-107); Estimated Creatinine Clearance > 125 ml/min; Glucose 133 mg/dl (70-99); Magnesium 1.9 mg/dl (1.6-2.3); Potassium 3.9 mmol/L (3.5-5.1); Sodium 130 mmol/L (135-145); Total Protein 6.9 g/dl (6.3-8.2); eGFR > 60.00
[2025-04-29 07:17] VITALS: BP 144/69
[2025-04-29] MEDS: NSS (PRESERVATIVE FREE) 10 ML IV ×2 (09:06→19:47)
[2025-04-29] MEDS: NEURONTIN PO ×3 (09:06→17:30)
[2025-04-29] MEDS: NICODERM TRANSDERMAL 14 MG TRANSDERM (09:06)
[2025-04-29] MEDS: PROTONIX IV 40 MG IV ×2 (09:06→19:47)
--- NOTE | 2025-04-29 10:29 | W.PN.HOSP.TC ---
Today's Communication/Plan
-
Start full liquids
Continue with symptomatic treatment, hopefully discharge in next 24 to 48 hours
Stop IV fluid
Assessment / Plan
Assessment / Plan
Physical Exam
General: Well Developed, sleeping
HEENT: Anicteric, Moist mucous membranes and Atraumatic
Respiratory: Clear
Cardiac: S1/S2 and Murmur
GI: Soft, Non Distended and mildly Tender
Genito-urinary: No Garcia
Musculoskeletal: No Clubbing, No Cyanosis and No Edema
Skin: No Jaundice
Neuro: AO x 3, she followed commands
Psych: Calm and Intact Judgment/Insight
34 years old female presented with intractable nausea vomiting for 1 week duration
#Intractable nausea and vomiting, inability to tolerate oral intake
consistent with cannabis Hyperemesis Syndrome
recurrent problem requiring recurrent hospitalization
She continues to have N/V
c/w IV PRN Zofran & Compazine
requested IV morphine for abdominal discomfort ( she had it before and it helped)
IV PPI to BID
Abdominal x ray : Further GDMT for HF per cardiology
Due to continued symptoms, Will do low dose Diazepam IV PRN to help
Continue supportive care with IV fluid and liquid diet as tolerated
-Continue symptom control with anti-emetics
-Afebrile
-Continue with PPI to BID, she refused capsaicin from prior experience.
- Consulted GI
# High BP, HTN urgency
could be underlying HTN
she was started on Nifedipine last admission but she is not on it now
PRN hydralazine
# Hyponatremia, stop IVF
start oral diet
#Leukocytosis, likely stress reaction
Afebrile
WBC count is coming down
-Continue to monitor
#Anxiety/Depression/Panic Disorder
c/w home medications
She does not have suicidal or homicidal ideation
#GERD
-Continue Protonix
#Chronic Pain
-Continue gabapentin when able to take oral pills. She requested IV Morphine while unable to take oral Gabapentin.
DVT proph: SQ Lovenox.
Code Status: Full Code
Total d time spent to see the patient, examine the patient, review data and lab results, discuss treatment plan with patient and nursing staff around 55 minutes
Anticipated Discharge: Within 24 hours
Subjective/Interval History
-
Date of Service: April 29, 2025
feeling slightly better, morphine is helping
Objective Data
-
Labs:
Laboratory Results
04/29/25
05:34
WBC 11.5 H
Hgb 13.7
Hct 38.8
Plt Count 243
Sodium 130 L
Potassium 3.9
Chloride 99
Carbon Dioxide 24
BUN 9
Creatinine 0.6
Glucose 133 H
Calcium 8.8
Total Bilirubin 1.5 H
AST 21
ALT 23
Alkaline Phosphatase 51
Vital Signs:
Vital Signs
Temp Pulse Resp BP Pulse Ox
98.1 F 59 17 144/69 98
04/29/25 07:17 04/29/25 07:17 04/29/25 07:17 04/29/25 07:17 04/29/25 07:17
I&O
04/28/25 04/29/25 04/30/25
06:59 06:59 06:59
Intake Total 0 / 0 1959
Balance 0 / 0 1959
[2025-04-29] MEDS: MORPHINE SULFATE 2 MG IV (10:39)
[2025-04-29 15:34] VITALS: BP 174/86
--- NOTE | 2025-04-29 16:37 | CM ---
Started on full liquids.
Still needing nausea meds.
IV s as needed.
Sister will drive her home at [place].
PLAn Home no needs
[2025-04-29] MEDS: LOVENOX 40 MG SC (17:30)
[2025-04-29] MEDS: NEURONTIN 600 MG PO (21:00)
[2025-04-29 23:25] VITALS: BP 194/98
[2025-04-30 00:15] VITALS: BP 186/88
[2025-04-30] MEDS: ZOFRAN 4 MG IV ×2 (04:18→10:29)
[2025-04-30 05:53] LABS: Hematocrit 39.7 % (37.0-47.0); Hemoglobin 14.2 g/dL (12.0-16.0); Mean Corp Hgb Conc. 35.8 g/dL (33.0-37.0); Mean Corpuscular Volume 87.1 fL (81.0-99.0); Platelet Count 253 10^3/uL (130-400); Red Cell Dist. Width 12.2 % (11.5-14.5)
[2025-04-30 06:14] LABS: Blood Urea Nitrogen 10 mg/dl (7-17); Calcium 9.1 mg/dl (8.4-10.2); Carbon Dioxide 25 mmol/L (22-30); Chloride 100 mmol/L (98-107); Estimated Creatinine Clearance > 125 ml/min; Glucose 117 mg/dl (70-99); Potassium 3.8 mmol/L (3.5-5.1); Sodium 133 mmol/L (135-145); eGFR > 60.00
[2025-04-30] MEDS: COMPAZINE 10 MG IV (06:16)
[2025-04-30 07:46] VITALS: BP 159/87
[2025-04-30] MEDS: NICODERM TRANSDERMAL 14 MG TRANSDERM (08:25)
[2025-04-30] MEDS: NEURONTIN 600 MG PO (08:25)
[2025-04-30] MEDS: PROCARDIA XL (EXTENDED RELEASE) 30 MG PO (08:25)
[2025-04-30] MEDS: NSS (PRESERVATIVE FREE) 10 ML IV (08:26)
[2025-04-30] MEDS: PROTONIX IV 40 MG IV (08:26)
--- NOTE | 2025-04-30 10:59 | W.PN.HOSP.TC ---
Today's Communication/Plan
-
dc
Assessment / Plan
Assessment / Plan
Physical Exam
General: Well Developed, sleeping
HEENT: Anicteric, Moist mucous membranes and Atraumatic
Respiratory: Clear
Cardiac: S1/S2 and Murmur
GI: Soft, Non Distended and mildly Tender
Genito-urinary: No Garcia
Musculoskeletal: No Clubbing, No Cyanosis and No Edema
Skin: No Jaundice
Neuro: AO x 3, she followed commands
Psych: Calm and Intact Judgment/Insight
34 years old female presented with intractable nausea vomiting for 1 week duration
#Intractable nausea and vomiting, inability to tolerate oral intake
consistent with cannabis Hyperemesis Syndrome
good improvement, tolerating diet better, requesting discharge
counseled about her substance use, verbalized understanding
recurrent problem requiring recurrent hospitalization
requested IV morphine for abdominal discomfort ( she had it before and it helped)
IV PPI to BID
Abdominal x ray : Further GDMT for HF per cardiology
-Afebrile
-Continue with PPI to BID, she refused capsaicin from prior experience.
- Consulted GI
# High BP, HTN urgency
Untreated HTN
she was started on Nifedipine last admission but she is not on it now, she said she ran out and her primary did not give her another medicine. She felt nifedipine caused leg swelling. Will restart but lower dose. Discussed with patient, any other
blood pressure medication will need blood work and to avoid dehydration like diuretics or MARY inhibitor. Prefer to avoid beta-juliette in young patient to avoid fatigue and bradycardia. She did well with nifedipine but had mild ankle swelling which
did not bother her a lot. We can do nifedipine but lower dose. Patient is agreeable. Of note we cannot do hydralazine as she has issues to take medication frequent doses per day
She was counseled to continue with medical compliance to avoid complications and side effects
# Hyponatremia, stop IVF
Mild. No confusion. Continue with diet
#Leukocytosis, likely stress reaction
Afebrile
WBC count is coming down
-Continue to monitor
#Anxiety/Depression/Panic Disorder
c/w home medications
She does not have suicidal or homicidal ideation
#GERD
-Continue Protonix
#Chronic Pain
-Continue gabapentin when able to take oral pills. She requested IV Morphine while unable to take oral Gabapentin.
DVT proph: SQ Lovenox.
Code Status: Full Code
Total discharge time spent to see the patient, examine the patient, review data and lab results, discuss discharge plan with patient and nursing staff around 6minutes
Anticipated Discharge: Today
Subjective/Interval History
-
Date of Service: April 30, 2025
She feels better
she wants to go home, requesting discharge
Objective Data
-
Labs:
Laboratory Results
04/30/25
05:18
WBC 11.2 H
Hgb 14.2
Hct 39.7
Plt Count 253
Sodium 133 L
Potassium 3.8
Chloride 100
Carbon Dioxide 25
BUN 10
Creatinine 0.7
Glucose 117 H
Calcium 9.1
Vital Signs:
Vital Signs
Temp Pulse Resp BP Pulse Ox
97.8 F 57 17 159/87 97
04/30/25 07:46 04/30/25 07:46 04/30/25 07:46 04/30/25 07:46 04/30/25 07:46
I&O
04/29/25 04/30/25 05/01/25
06:59 06:59 06:59
Intake Total 1959
Balance 1959
[2025-04-30 11:46] VITALS: BP 150/98
--- NOTE | 2025-04-30 12:04 | CM ---
MD entered discharge order
Tolerated regular diet
Sister will drive her home at [place].
PLAN Home no needs
--- NOTE | 2025-04-30 13:43 | W.DCSUMMARY ---
Discharge Summary
Discharge Data
Date of Admission: 04/27/25
Date of Discharge: 04/30/25
-
Pending Results: No
Hospital Course
34 years old female with cannabis hyperemesis history admitted to the hospital with persistent nausea, vomiting and abdominal discomfort. She has had multiple hospital admissions for similar symptoms. Patient was admitted to the hospital. She was
started on intravenous fluid, intravenous Protonix and antiemetics. Patient requested IV morphine as to help before. Patient was evaluated by gastroenterology. She had history of a prior EGD that were unremarkable with a small hiatal hernia. GI
recommended a trial of capsaicin but patient declined. GI recommended marijuana cessation which can take up to 6 months to see improvement. She was offered also to do outpatient gastric emptying study but can be impacted by substance use. Patient
had normal mood. Recommended outpatient psychiatry evaluation if needed. Patient was able to improve. She was started on diet and tolerated well. She requested prescription for antiemetics. Patient was noted to have elevated blood pressure.
She has stopped taking nifedipine due to ankle edema. She was given nifedipine back but lower dose. She was advised to monitor her blood pressure and follow-up with her primary care doctor. Patient remained hemodynamically stable was discharged
home in stable condition after tolerating diet.
Discharge Plan
-
Patient Disposition: Home (Routine Discharge)
Discharge Diagnosis/Procedures: Persistent nausea and vomiting. Improved with symptomatic treatment.
You were seen by GI doctor
You have cannabis hyperemesis, you were counseled.
Take Zofran as needed. If no improvement, you can take Compazine.
Take omeprazole twice a day for 1 month. Follow-up with GI in office in 1 month.
- You have high blood pressure. Take nifedipine but lowered the dose to avoid ankle edema. You will need to monitor your blood pressure and follow-up with your primary care doctor in 1-2 weeks.
Diet: As tolerated
Referrals:
Hector Ladd MD [Family Provider, Family Practice] - in one to two weeks
Laurel Good MD [Active, Gastroenterology] - in one month
Prescriptions:
New
nicotine 14 mg/24 hr Patch 24 Hour
14 mg transdermal DAILY Qty: 28 0RF
nifedipine 30 mg Tablet Extended Release
30 mg PO DAILY Qty: 30 0RF
ondansetron HCl 4 mg tablet
4 mg PO Q8H PRN (Reason: nausea and vomiting) Qty: 10 0RF
prochlorperazine maleate [Compazine] 10 mg tablet
10 mg PO BID PRN (Reason: severe nausea) Qty: 10 0RF
omeprazole 20 mg capsule,delayed release(DR/EC)
20 mg PO BID Qty: 60 0RF
Continued
gabapentin 300 mg Capsule
600 mg PO TID Qty: 180 0RF
Discontinued
omeprazole 20 mg Capsule,Delayed Release(Dr/Ec)
20 mg PO HS
Discharge Orders:
Discharge Patient (As Directed); Ordered 04/30/25
Ordered By: Georgi Cunningham
Discharge Date and Time
Discharge Date/Time: 04/30/25 11:48
Print Language: EQUATORIAL GUINEAN
== END 2025-04-30 11:48 | disposition home or self-care (01) | DRG 392 ==
LOC: 3 WEST ACU 13:01
PROVIDERS: Physician Assistant; Student in an Organized Health Care Education/Training Program; ADMITTING PHYSICIAN Student in an Organized Health Care Education/Training Program; ATTENDING PHYSICIAN Internal Medicine; EMERGENCY PHYSICIAN Emergency Medicine; FAMILY PHYSICIAN Family Medicine; OTHER PHYSICIAN Internal Medicine
DX: R11.16 Cannabis hyperemesis syndrome (principal); I16.0 Hypertensive urgency; D72.829 Elevated white blood cell count, unspecified; F41.9 Anxiety disorder, unspecified; F32.A Depression, unspecified; K21.9 Gastro-esophageal reflux disease without esophagitis; G89.29 Other chronic pain; G43.909 Migraine, unspecified, not intractable, without status migrainosus; F17.210 Nicotine dependence, cigarettes, uncomplicated; E66.9 Obesity, unspecified; Z68.38 Body mass index [BMI] 38.0-38.9, adult; K76.0 Fatty (change of) liver, not elsewhere classified; Z79.899 Other long term (current) drug therapy; Z11.52 Encounter for screening for COVID-19
CPT/HCPCS: 74018; 80048; 80053; 83690; 83735; 84703; 85025; 85027; 87502; 87811; 93005; 96361; 96374; 96375; 99285

== ENCOUNTER 2025-05-28 07:00 | Emergency (ER) | payer OTHER, SELFPAY ==
[2025-05-28 07:02] VITALS: BP 154/98
[2025-05-28 07:27] VITALS: BMI 36.5
--- NOTE | 2025-05-28 07:27 | ED.GENMED ---
History of Present Illness
General
Chief Complaint: Musculo-Skeletal Complaint
Source: patient
Exam Limitations: none
Time Seen by Provider: 05/28/25 07:20
Nursing documentation reviewed up to this point in time: agreed with
History of Present Illness
History of Present Illness:
34-year-old female with history as noted presents for evaluation of knee pain. Patient reports that about 2 years ago she suffered an initial injury to her right knee where she essentially twisted knee towards the side. She says initially she was
seen in urgent care, rested and symptoms improved but ever since then she has felt occasional popping in her knee and will have pain if she overexerts herself on the knee. She says that a few days ago while at work she unintentionally hyperextended
the knee and since then has had pain and swelling and so she came to the ER to be evaluated. She has never seen an orthopedist for her knee issue before. She denies any fevers or chills or any other acute complaints.
Past History
Past History
ED Past Medical History: Psychiatric (Anxiety, marijuana dependence) and Other (Cannabis hyperemesis syndrome, obesity, migraines)
ED Past Surgical History: None
Social History
Tobacco: Smoker
Alcohol: Former
Drug: Marijuana
Personal: Single
Living: with family
Employment: Employed
Family History
Family History: Other
Review of Systems
Review of Systems
All Other Systems: ROS reviewed and negative except as documented in HPI and ROS
Constitutional: Denies fever
Musculoskeletal: Reports joint pain and joint swelling
Phy Exam
Physical Exam
Physical Exam:
General: Well appearing and non-toxic
HEENT: protecting airway
Neck: appears supple
CV: No evidence of cyanosis
Resp: No accessory muscle use
Abd: Non-distended
Extremities: No deformities; on exam of the right knee patient has small suprapatellar joint effusion; she has some mild tenderness in the medial joint line, no lateral joint line tenderness and no significant popliteal tenderness; she has no
significant tenderness at patellar pain with migration of patella; she does have full range of motion of the although she has pain at extremes of flexion extension; she has no laxity on anterior drawer or or valgus stress but does have some slight
laxity on varus strain; she has negative Julia; she is strong popliteal, DP and PT pulse, no edema in the leg, no erythema or warmth of the joint or right lower extremity in general
Neuro: Alert
Psych: Normal affect
Skin: Intact
Scores
Heart Failure Risk
Heart Failure Risk Score: Not Applicable
Heart Score for Chest Pain Patients
STEMI patient?: Not applicable
Withdrawal Assessment of Alcohol
Withdrawal Assessment Completed?: Not applicable
Course
Orders/Labs/Results
Orders:
Orders
05/28/25 07:09
Knee, Right 4 or More Views [CR Knee- Right 4 Or More View*] Urgent
Comment:
Reason For Exam: right knee pain
05/28/25 07:25
Ketorolac [Toradol] 30 mg IM NOW STA
05/28/25 07:34
Prochlorperazine [Compazine] 5 mg PO NOW STA
Vital Signs
Initial and Last Documented VS:
Initial Vital Signs
Temp Pulse Resp BP Pulse Ox
36.9 C 101 18 154/98 97
05/28/25 07:02 05/28/25 07:02 05/28/25 07:02 05/28/25 07:02 05/28/25 07:02
Last Documented Vital Signs
Temp Pulse Resp BP Pulse Ox
36.9 C 77 18 138/77 97
05/28/25 07:02 05/28/25 07:30 05/28/25 07:30 05/28/25 07:30 05/28/25 07:32
MDM/Problems Addressed
Differential Diagnosis Includes:
Knee sprain, fracture, ligamentous injury, meniscus injury
MDM/Problems Addressed:
34-year-old female presents for evaluation of acute on chronic knee pain�had an injury 2 years ago has had intermittent symptoms since that, flared up a few days ago after unintentional overextension at work. Vitals and exam as above. X-ray of the
knee shows no fracture or dislocation. She does have a knee effusion. Suspect that this is posttraumatic. Suspect minor knee sprain, she should follow-up with orthopedist. Will treat with Toradol here; patient also complaining of some very mild
nausea due to pain, says that she usually takes Compazine and requested a dose of this. While awaiting orthopedic follow-up we will apply compression wrap, crutches as needed for ambulation. Advised regarding RICE, Tylenol and NSAIDs for pain
control. Spoke about follow-up plan and return precautions and all questions answered.
Acute Exacerbation and/or Progression of Chronic Illness: HTN
*Radiology
Radiology exam reviewed: preliminary read by ED provider
*Pulse Oximetry
SaO2: 97
Oxygen Mode of Delivery: Room air
Patient hypoxic: no (97%)
*Critical Care Note
Total Time (30-74mins, 75-104mins- exclusive of procedures): Not Applicable
Data Reviewed
Source: patient
ED Attending Note
-
Portions of this chart may have been created with voice recognition software.� Occasional wrong word or��sound alike� substitutions may have occurred due to the inherent limitations of voice recognition software.
Discharge Plan
Departure
Patient Disposition: Home (Routine Discharge)
Date of Disposition: 05/28/25
Time of Disposition: 07:27
Patient with high blood pressure during this ER visit?: Yes
Discharge Problem:
Injury of knee, right
Instructions: Ligament Injuries in the Knee (DC)
Prescriptions:
No Action
gabapentin 300 mg Capsule
600 mg PO TID Qty: 180 0RF
nifedipine 30 mg Tablet Extended Release
30 mg PO DAILY Qty: 30 0RF
ondansetron HCl 4 mg tablet
4 mg PO Q8H PRN (Reason: nausea and vomiting) Qty: 10 0RF
omeprazole 20 mg capsule,delayed release(DR/EC)
20 mg PO BID Qty: 60 0RF
Referrals:
Fabian Maher MD [Active, Orthopedics] - Call in 1-3 days for appt
Referral Note: [facility]
Stand Alone Forms: Return to Work
Activity Restrictions/Additional Instructions:
You should rest your knee and keep it elevated while resting. You should apply ice to the knee for about 15 minutes at a time 3-5 times a day. Take Tylenol and ibuprofen for the next few days to help with your knee pain. You should call first
thing on Friday morning to schedule an appointment with the orthopedist for further treatment of your knee injury. You can use crutches to help to get around as needed. You should avoid significant physical activity until cleared by the orthopedic
doctor.
Thank you for visiting the Emergency Department at [facility].
1. Please schedule a follow up appointment as directed. Call first thing tomorrow morning to make an appointment.
2. If indicated, please take your medications as instructed and indicated on discharge paperwork.
3. If any of your symptoms do not improve, or persist, or become more severe within 6-12 hours, please return to the emergency department for further care.
4. Please return to the emergency department if you develop a headache, neck pain/stiffness, fever greater than 100.4F, chest pain, shortness of breath, persistent nausea, vomiting, slurred speech, difficulty walking, numbness/tingling, weakness,
signs of infection or any other symptoms that are worrisome to you.
Please call [phone] if you have any questions.
Interventions
Interventions:
*Risk Screen - Suicide Last Done: 05/28/25 07:02
*General Assessment Last Done: 05/28/25 07:02
*Neglect/Abuse Screening Last Done: 05/28/25 07:02
*ED- Fall Risk Assessment Last Done: 05/28/25 07:29
*ED COVID-19 Vaccine History Last Done: 05/28/25 07:29
*ED Influenza Vaccine History Last Done: 05/28/25 07:29
ED-Musculoskeletal Assessment Last Done: 05/28/25 07:30
Discharge Date and Time
Print Language: [id number]
[2025-05-28 07:30] VITALS: BP 138/77
[2025-05-28] MEDS: TORADOL 30 MG IM (07:45)
[2025-05-28] MEDS: COMPAZINE 5 MG PO (07:56)
== END 2025-05-28 08:09 | disposition home or self-care (01) ==
LOC: EMR 07:00
PROVIDERS: EMERGENCY PHYSICIAN Emergency Medicine; FAMILY PHYSICIAN Family Medicine
DX: S89.91XA Unspecified injury of right lower leg, initial encounter (principal); X50.1XXA Overexertion from prolonged static or awkward postures, initial encounter; Y99.0 Civilian activity done for income or pay; F41.9 Anxiety disorder, unspecified; E66.9 Obesity, unspecified; Z68.36 Body mass index [BMI] 36.0-36.9, adult; F12.20 Cannabis dependence, uncomplicated; F17.200 Nicotine dependence, unspecified, uncomplicated
CPT/HCPCS: 99284; 96372; 73564